=== PATIENT | male | born 1995 | race Caucasian/White ===

== ENCOUNTER → 2020-05-31 18:32 | Outpatient (BNVA) | payer OTHER, SELFPAY | PROVIDERS: Family Provider Nurse Practitioner Family; PCP Nurse Practitioner Family; Visit Provider Emergency Medicine | DX: Z11.59 Encounter for screening for other viral diseases (principal) | CPT/HCPCS: 87635 ==

== ENCOUNTER 2022-02-08 11:05 | Emergency (ER) | payer SELFPAY ==
[2022-02-08 11:47] VITALS: BP 156/84; PULSE 61; RESP 16; TEMP 36.6; O2SAT 100; BMI 26.4
--- NOTE | 2022-02-08 11:56 | CTR_ITS ---
PROCEDURE INFORMATION: Exam: CT Abdomen And Pelvis With Contrast Exam date and time: 02/08/2022 12:28 PM Age: 26 years old Clinical indication: Nausea and vomiting; Abdominal pain; Generalized. TECHNIQUE: Imaging protocol: Computed tomography of the abdomen and pelvis with contrast. Radiation optimization: All CT scans at this facility use at least one of these dose optimization techniques: automated exposure control; mA and/or kV adjustment per patient size (includes targeted exams where dose is matched to clinical indication); or iterative reconstruction. Contrast material: OMNI 350; Contrast volume: 95 ml; Contrast route: INTRAVENOUS (IV); COMPARISON: No relevant prior studies available. RADIATION DOSE METRICS: Total DLP (mGy-cm): 1018.75 FINDINGS: Liver: The liver is not enlarged. There is an ill-defined focus of diminished subcapsular attenuation in segment 4B adjacent to the fissure for the falciform ligament which can be due to focal fatty change or an area of anomalous perfusion. Gallbladder and bile ducts: No calcified gallstones, gallbladder wall thickening, or pericholecystic inflammation. No biliary ductal dilation. Pancreas: No pancreatic mass. No peripancreatic inflammation. No pancreatic ductal dilation. Spleen: The spleen is homogeneous and is not enlarged. Adrenal glands: No adrenal mass. Kidneys and ureters: No hydronephrosis. No nephrolithiasis. Tiny cyst in the right kidney. Stomach and bowel: No bowel obstruction. There appears to be mesenteric vascular engorgement which raises the possibility of an enteritis given the history. However, there is only a small amount of fluid in the small bowel lumen, and cannot confirm bowel wall thickening. No diverticulitis. Appendix: The appendix has normal caliber. There is gas in the lumen. No appendiceal wall thickening or periappendiceal inflammation. Intraperitoneal space: No ascites or pneumoperitoneum. Vasculature: The abdominal aorta and iliofemoral arteries are normal. The mesenteric arteries are patent. The mesenteric, portal, and hepatic veins are patent. Lymph nodes: No pathologically enlarged lymph nodes. Urinary bladder: No urinary bladder calculus or wall thickening. Reproductive: Unremarkable as visualized. Bones/joints: There is an intramedullary ba in the right femur. Disc space narrowing at L5-S1. Soft tissues: No acute soft tissue abnormality. CT/CT abdomen pelvis w con* [id number] IMPRESSION: 1. No bowel obstruction. Enteritis? 2. Normal appendix. COMMENTS: Consistent with the [employer]'s Incidental Findings Committee white paper (J Am Saida Radiol 2018): Any incidental renal lesion less than 1 cm or classified as too small to characterize, or any incidental cystic renal lesion characterized as simple-appearing, is likely benign. No follow-up imaging is recommended for these lesions per consensus recommendations based on imaging criteria.
--- NOTE | 2022-02-08 11:57 | ED_ITS ---
HPI - Abdominal Pain General: Chief Complaint: Abdominal Pain Stated Complaint: ABD Pains, vomitting with blood Time Seen by Provider: 02/08/22 11:51 Source: patient Mode of arrival: ambulatory Limitations: no limitations History of Present Illness: 26-year-old male states that over the last 2 days he has had multiple episodes of vomiting along with diffuse abdominal cramping. He states that he has not been able to relate any p.o. has had multiple multiple episodes of vomiting. He states had 1 episode of slight bloody vomitus denies any diarrhea states his pain is currently a 4 out of 10 denies any fevers denies any worsening improving factors. Associated Symptoms: Reports nausea and vomiting; Denies chills, dysuria and fever(s) Review of Systems Const: Denies: fever(s), chills, body aches or change in appetite Eyes: Denies: blurry vision or eye discomfort ENMT: Denies: throat pain or dental pain Card: Denies: chest pain Resp: Denies: dyspnea GI: Reports: abdominal pain, nausea and vomiting : Denies: dysuria Musc: Denies: neck pain or back pain Skin/Breast: Denies: rash Neuro: Denies: headache(s) Psych: Denies: depression Myles/Lymph: Denies: easy bruising All/Imm: Denies: urticaria PFSH ED PFSH: Family History Denies family history of Diabetes Dementia Hypertension Social History Smoking and tobacco status: current some day smoker Alcohol intake: current Alcohol intake frequency: few times a week Physical Exam Const: COMMON NORMALS: no acute distress, patient oriented x3 and healthy appearing HENMT: COMMON NORMALS: normocephalic and atraumatic HEAD & SCALP: normocephalic and atraumatic Eye: COMMON NORMALS: Equal, round and reactive pupils present and EOMs intact bilaterally PUPIL: Yes Equal, round and reactive pupils present Neck/C-Spine: COMMON NORMALS: full ROM and supple Chest: COMMONS NORMALS: normal inspection of the chest and normal palpation of entire chest wall Resp: COMMON NORMALS: normal respiratory effort, No retractions, No use of accessory muscles and clear to auscultation bilaterally AUSCULTATION: clear to auscultation bilaterally Cardio: COMMON NORMALS: regular rate, regular rhythm and No murmurs present (Cardio) RATE: regular rate RHYTHM: regular rhythm GI: COMMON NORMALS: Normal to inspection, nondistended, normoactive bowel sounds present, Soft to palpation, non-tender and no masses PALPATION: Yes Soft to palpation Extremity: COMMON NORMALS: normal to inspection and full ROM Neuro: COMMON NORMALS: patient oriented x3, moves all extremities and no focal motor deficits Psych: COMMON NORMALS: mental status grossly normal, Normal thought process present and cooperative THOUGHT PROCESS: Normal thought process present Skin: COMMON NORMALS: no rashes or lesions noted and no wounds GENERAL SKIN EXAM: no rashes or lesions noted Course Vital Signs: Vital signs: Vital Signs Temperature 97.9 F 02/08/22 11:47 Pulse Rate 61 02/08/22 11:47 Respiratory Rate 16 02/08/22 11:47 Blood Pressure 156/84 02/08/22 11:47 Pulse Oximetry 100 02/08/22 11:47 MDM - Abdominal Pain Medical Decision Making Patient presents here with abdominal pain and vomiting likely food poisoning or viral in origin he feels much improved here after nausea medicine and fluids he has been able to tolerate p.o. CT scan was normal he is stable for discharge we will prescribe him Zofran he is to follow-up with PCP and return if worsening he understands agrees to plan. Lab Data : 02/08/22 12:00 02/08/22 12:00 Labs/Radiology: Radiology Impressions Abdomen/Pelvis CT 02/08/22 11:56 IMPRESSION: 1. No bowel obstruction. Enteritis? 2. Normal appendix. COMMENTS: Consistent with the [employer]'s Incidental Findings Committee white paper (J Am Saida Radiol 2018): Any incidental renal lesion less than 1 cm or classified as too small to characterize, or any incidental cystic renal lesion characterized as simple-appearing, is likely benign. No follow-up imaging is recommended for these lesions per consensus recommendations based on imaging criteria. Laboratory Results WBC 13.9 10^3/uL (4.0-10.0) H 02/08/22 12:00 RBC 5.38 10^6/uL (4.1-5.3) H 02/08/22 12:00 Hgb 15.8 g/dL (11.7-16.6) 02/08/22 12:00 Hct 44.9 % (42.0-52.0) 02/08/22 12:00 MCV 83.5 fl (80-94) 02/08/22 12:00 MCH 29.4 pg (28.0-34.0) 02/08/22 12:00 MCHC 35.2 g/dL (30.0-36.0) 02/08/22 12:00 RDW 12.2 % (12.1-15.1) 02/08/22 12:00 Plt Count 320 10^3/cmm (130-400) 02/08/22 12:00 MPV 9.4 fL (7.4-10.4) 02/08/22 12:00 Neut % (Auto) 85.0 % 02/08/22 12:00 Lymph % (Auto) 9.4 % 02/08/22 12:00 Story % (Auto) 4.7 % 02/08/22 12:00 Eos % (Auto) 0.2 % 02/08/22 12:00 Baso % (Auto) 0.2 % 02/08/22 12:00 Neut # (Auto) 11.82 10^3/uL (1.8-7.7) H 02/08/22 12:00 Lymph # (Auto) 1.3 10^3/uL (0.8-4.8) 02/08/22 12:00 Story # (Auto) 0.7 10^3/uL (0.2-0.9) 02/08/22 12:00 Eos # (Auto) 0.0 10^3/uL (0.0-0.8) 02/08/22 12:00 Baso # (Auto) 0.0 10^3/uL (0.0-0.1) 02/08/22 12:00 Nucleated RBC % (auto) 0 % 02/08/22 12:00 Nucleated RBCs # 0.0 /100WBC 02/08/22 12:00 Sodium 140 mmol/L (136-145) 02/08/22 12:00 Potassium 3.7 mmol/L (3.5-5.1) 02/08/22 12:00 Chloride 102 mmol/L (98-107) 02/08/22 12:00 Carbon Dioxide 23 mmol/L (22-29) 02/08/22 12:00 Anion Gap 18.7 (5-19) 02/08/22 12:00 BUN 14 mg/dL (6-20) 02/08/22 12:00 Creatinine 0.8 mg/dL (0.7-1.2) 02/08/22 12:00 GFR Calculation 117.8 mL/min (90-130) 02/08/22 12:00 Glucose 153 mg/dL (65-115) H 02/08/22 12:00 Calculated Osmolality 294 mOsm/kg (285-295) 02/08/22 12:00 Calcium 10.1 mg/dL (8.5-10.5) 02/08/22 12:00 Total Bilirubin 1.1 mg/dL (0.15-1.2) 02/08/22 12:00 AST 21 U/L (0-40) 02/08/22 12:00 ALT 19 U/L (0-41) 02/08/22 12:00 Alkaline Phosphatase 59 IU/L (40-130) 02/08/22 12:00 Total Protein 7.9 g/dL (6.6-8.7) 02/08/22 12:00 Albumin 5.2 g/dL (3.5-5.2) 02/08/22 12:00 Globulin 2.7 g/dL (1.3-4.6) 02/08/22 12:00 Lipase 23 U/L (13-60) 02/08/22 12:00 Discharge Plan Discharge Patient Disposition: Home Clinical Impression: Vomiting Qualifiers: Vomiting type: unspecified Nausea presence: with nausea Qualified Code(s): R11.2 - Nausea with vomiting, unspecified Condition: Stable Prescriptions: New ondansetron 4 mg tablet,disintegrating 4 mg PO Q6H PRN (Reason: nausea and vomiting) Qty: 14 0RF Discharge Orders: Discharge ED (Routine); Ordered 02/08/22 Ordered By: Jaime Andrade Referrals: Mason Cobos FNP [Primary Care Provider] - Discharge Diet: Advance as tolerated Discharge Activity: Resume usual activity Patient Instructions: Acute Nausea and Vomiting (ED) Coding Level of Care Code ED Vp Hr D[facility] for [facility] Fwd Exam Comprehensive
[2022-02-08 12:05] LABS: Basophils % 0.2 %; Eosinophils % 0.2 %; Hematocrit 44.9 % (42.0-52.0); Hemoglobin 15.8 g/dL (11.7-16.6); Lymphocytes # 1.3 10^3/uL (0.8-4.8); Lymphocytes % 9.4 %; Mean Corpuscular HGB Conc 35.2 g/dL (30.0-36.0); Mean Corpuscular Hemoglobin 29.4 pg (28.0-34.0); Mean Corpuscular Volume 83.5 fl (80-94); Mean Platelet Volume 9.4 fL (7.4-10.4); Monocytes # 0.7 10^3/uL (0.2-0.9); Monocytes % 4.7 %; Neutrophils # 11.82 10^3/uL (1.8-7.7); Nucleated Red Blood Cells % 0 %; Platelet Count 320 10^3/cmm (130-400); Red Blood Count 5.38 10^6/uL (4.1-5.3); Red Cell Distribution Width 12.2 % (12.1-15.1); White Blood Count 13.9 10^3/uL (4.0-10.0)
[2022-02-08] MEDS: metoclopramide 5 mg/mL SDV 2 mL 10 MG IVP (12:05)
[2022-02-08] MEDS: diphenhydrAMINE 50 mg/mL SDV 1mL IVP (12:05)
[2022-02-08] MEDS: sodium chloride 0.9% 1,000 ML 999 ML IV (12:06)
[2022-02-08] MEDS: iohexol 350 mg/mL 100 mL Btl IV (12:28)
[2022-02-08 12:29] LABS: Alanine Aminotransferase 19 U/L (0-41); Albumin Level 5.2 g/dL (3.5-5.2); Alkaline Phosphatase 59 IU/L (40-130); Anion Gap 18.7 (5-19); Aspartate Amino Transferase 21 U/L (0-40); Blood Urea Nitrogen 14 mg/dL (6-20); Calcium 10.1 mg/dL (8.5-10.5); Carbon Dioxide 23 mmol/L (22-29); Chloride 102 mmol/L (98-107); Globulin 2.7 g/dL (1.3-4.6); Glomerular Filtration Rate 117.8 mL/min (90-130); Glucose 153 mg/dL (65-115); Lipase 23 U/L (13-60); Osmolality Calculated 294 mOsm/kg (285-295); Potassium 3.7 mmol/L (3.5-5.1); Sodium 140 mmol/L (136-145); Total Bilirubin 1.1 mg/dL (0.15-1.2); Total Protein 7.9 g/dL (6.6-8.7)
== END 2022-02-08 14:13 | disposition home or self-care (01) ==
PROVIDERS: Physician Assistant; Emergency Provider Emergency Medicine; PCP Nurse Practitioner Family
DX: R11.2 Nausea with vomiting, unspecified (principal)
CPT/HCPCS: 74177; 80053; 83690; 85025; 96361; 96374; 96375; 99284; J1200; J2765; J7030; Q9967

== ENCOUNTER 2022-02-10 07:20 | Emergency (ER) | payer SELFPAY ==
[2022-02-10 07:44] VITALS: BP 140/95; PULSE 76; RESP 18; TEMP 36.7; O2SAT 100; BMI 26.4
--- NOTE | 2022-02-10 10:30 | W.ED.NAVMDI ---
Documented by User: ERI Plata 02/11/22 07:38 HPI - Nausea/Vomiting/Diarrhea General: Chief complaint: Abdominal Pain Stated complaint: n/v continues Time Seen by Provider: 02/10/22 07:26 History of Present Illness: Patient is a 26-year-old male comes to the ED with nausea and vomiting. Patient was seen here in the ED for same complaint 2 days ago on February 08. He states that the nausea med he was sent home with is not working then he still having some nausea and multiple episodes of emesis. Endorses abdominal muscle pain after he has some vomiting and retching. Denies any fevers, bladder or bowel symptoms. Endorses some improvement with symptoms when he takes a hot shower. Patient admits to being a chronic marijuana smoker for over 10 years. Associated nausea: Yes Associated symtoms: Reports nausea; Denies change in vision, chest pain, dysuria, fatigue, headache(s) or palpitations Review of Systems Const: Denies: fever(s), chills or fatigue Eyes: Denies: change in vision or eye discomfort ENMT: Denies: throat pain, odynophagia, nasal discharge or nasal congestion Card: Denies: chest pain, palpitations, edema, swelling of feet/ankles, dyspnea on exertion or orthopnea Resp: Denies: dyspnea, productive cough or non-productive cough GI: Reports: nausea and vomiting; Denies: abdominal pain, diarrhea, constipation or hematochezia : Denies: flank pain, difficulty urinating, dysuria or hematuria Musc: Denies: neck pain, back pain or extremity swelling Skin/Breast: Denies: rash or new lesions Neuro: Denies: headache(s), numbness in extremities or weakness in extremities PFSH ED PFSH: Medical History No pertinent family history Surgical History No pertinent past surgical history Family History Denies family history of Diabetes Dementia Hypertension Social History Smoking and tobacco status: current some day smoker Alcohol intake: current Alcohol intake frequency: few times a week Physical Exam Const: COMMON NORMALS: no acute distress, patient oriented x3, healthy appearing and alert GENERAL APPEARANCE: cooperative HENMT: COMMON NORMALS: normocephalic HEAD & SCALP: normocephalic MOUTH: Normal oral and palatal mucosa present THROAT: posterior oropharynx normal and uvula midline Eye: COMMON NORMALS: Equal, round and reactive pupils present and conjunctivae normal CONJUNCTIVA: Yes conjunctivae normal PUPIL: Yes Equal, round and reactive pupils present Neck/C-Spine: COMMON NORMALS: supple GENERAL: Yes normal visual inspection Resp: COMMON NORMALS: normal respiratory effort, No retractions, No use of accessory muscles and clear to auscultation bilaterally AUSCULTATION: clear to auscultation bilaterally Cardio: COMMON NORMALS: regular rate, regular rhythm, S1 normal heart sound present, S2 normal heart sound present, No gallops present (Cardio), No clicks present (Cardio), No murmurs present (Cardio) and Peripheral pulses 2+ throughout RATE: regular rate RHYTHM: regular rhythm HEART SOUNDS: S1 normal heart sound present and S2 normal heart sound present PERIPHERAL PULSES: Peripheral pulses 2+ throughout GI: COMMON NORMALS: Normal to inspection, nondistended, normoactive bowel sounds present, Soft to palpation and no masses PALPATION: Yes Soft to palpation and Yes Tenderness to palpation present (GI) (Epigastric tenderness.) : COMMON NORMALS: Yes no CVA tenderness BLADDER/KIDNEY EXAM: Yes no CVA tenderness Back/Pelvis: COMMON NORMALS: no CVA tenderness Extremity: COMMON NORMALS: normal to inspection Neuro: COMMON NORMALS: patient oriented x3 SENSORIUM/ORIENTATION: Yes alert GAIT: Yes Normal gait present Skin: GENERAL SKIN EXAM: dry skin Course ED course: Patient was given p.o. fluid challengeafter he received a liter of IV fluids and IV Reglan. Patient was able to pass p.o. fluid challenge and he had no episodes of emesis after p.o. fluids. Vital Signs: Vital signs: Vital Signs Temperature 97.8 F 02/10/22 13:32 Pulse Rate 66 02/10/22 13:32 Respiratory Rate 16 02/10/22 13:32 Blood Pressure 153/100 02/10/22 13:32 Pulse Oximetry 100 02/10/22 13:32 MDM - Nausea/Vomiting/Diarrhea Medical Decision Making Patient is a 26-year-old male comes to the ED with nausea and vomiting. He was seen here in the ED for same complaint 3 days ago but was discharged home on some Zofran. He is still having some nausea and vomiting and Zofran at home is not helping. Warm showers improve his nausea and vomiting and hedoes admit to being a chronic marijuana user. Denies any fevers or abdominal pain. Vitals are stable. Patient appears nontoxic and in no acute distress. He has some epigastric tenderness to palpation. Rest of exam is benign. White blood cell count 16.3 which is up from 13.9 on February 08. Lipase also went to 134 and that is up from 23 on February 08. Rest of the labs are unremarkable. Given the increased white blood cell count, lipase and epigastric tenderness I repeated a CT of the abdomen and it showed no acute findings. Patient was given 1 L of IV fluids, Reglan and Ativan to help with his nausea/vomiting. Patient was given p.o. fluid challenge and he was able to tolerate p.o. fluids and keep them down with no other episodes of emesis here in the ED. He was stable for discharge home. He was sent home with a prescription for some Reglan as well to try to help with his nausea. Follow-up with PCP in the next week for reevaluation. Return to ED precautions given. Patient understood and agreed with plan. Lab Data I reviewed the patient's lab results. : 02/10/22 10:44 02/10/22 10:44 Radiology Impressions Abdomen/Pelvis CT 02/10/22 11:50 IMPRESSION: 1. No evidence of acute appendicitis. Appendix is normal and air-filled. 2. No hydronephrosis in either kidney. 3. Again seen is mild central mesenteric vascular engorgement which can be seen with mesenteritis or enteritis. Noncontrast small bowel appears normal today. 4. Sigmoid diverticulosis. No evidence of acute diverticulitis. 5. No free fluid in the abdomen or pelvis. 6. No other significant changes compared to previous. Laboratory Results WBC 16.3 10^3/uL (4.0-10.0) H 02/10/22 10:44 RBC 5.38 10^6/uL (4.1-5.3) H 02/10/22 10:44 Hgb 16.0 g/dL (11.7-16.6) 02/10/22 10:44 Hct 43.8 % (42.0-52.0) 02/10/22 10:44 MCV 81.4 fl (80-94) 02/10/22 10:44 MCH 29.7 pg (28.0-34.0) 02/10/22 10:44 MCHC 36.5 g/dL (30.0-36.0) H 02/10/22 10:44 RDW 12.0 % (12.1-15.1) L 02/10/22 10:44 Plt Count 321 10^3/cmm (130-400) 02/10/22 10:44 MPV 9.8 fL (7.4-10.4) 02/10/22 10:44 Neut % (Auto) 77.2 % 02/10/22 10:44 Lymph % (Auto) 11.3 % 02/10/22 10:44 Spalding % (Auto) 10.9 % 02/10/22 10:44 Eos % (Auto) 0.0 % 02/10/22 10:44 Baso % (Auto) 0.2 % 02/10/22 10:44 Neut # (Auto) 12.59 10^3/uL (1.8-7.7) H 02/10/22 10:44 Lymph # (Auto) 1.8 10^3/uL (0.8-4.8) 02/10/22 10:44 Spalding # (Auto) 1.8 10^3/uL (0.2-0.9) H 02/10/22 10:44 Eos # (Auto) 0.0 10^3/uL (0.0-0.8) 02/10/22 10:44 Baso # (Auto) 0.0 10^3/uL (0.0-0.1) 02/10/22 10:44 Nucleated RBC % (auto) 0 % 02/10/22 10:44 Nucleated RBCs # 0.0 /100WBC 02/10/22 10:44 Sodium 137 mmol/L (136-145) 02/10/22 10:44 Potassium 3.7 mmol/L (3.5-5.1) 02/10/22 10:44 Chloride 96 mmol/L (98-107) L 02/10/22 10:44 Carbon Dioxide 25 mmol/L (22-29) 02/10/22 10:44 Anion Gap 19.7 (5-19) H 02/10/22 10:44 BUN 11 mg/dL (6-20) 02/10/22 10:44 Creatinine 0.8 mg/dL (0.7-1.2) 02/10/22 10:44 GFR Calculation 117.8 mL/min (90-130) 02/10/22 10:44 Glucose 112 mg/dL (65-115) 02/10/22 10:44 Calculated Osmolality 284 mOsm/kg (285-295) L 02/10/22 10:44 Calcium 10.0 mg/dL (8.5-10.5) 02/10/22 10:44 Total Bilirubin 1.3 mg/dL (0.15-1.2) H 02/10/22 10:44 AST 26 U/L (0-40) 02/10/22 10:44 ALT 28 U/L (0-41) 02/10/22 10:44 Alkaline Phosphatase 59 IU/L (40-130) 02/10/22 10:44 Creatine Kinase 224 U/L (39-308) 02/10/22 10:44 Total Protein 8.0 g/dL (6.6-8.7) 02/10/22 10:44 Albumin 5.2 g/dL (3.5-5.2) 02/10/22 10:44 Globulin 2.8 g/dL (1.3-4.6) 02/10/22 10:44 Lipase 134 U/L (13-60) H 02/10/22 10:44 Discharge Plan Discharge Patient Disposition: Home Clinical Impression: Nausea & vomiting Qualifiers: Vomiting type: unspecified Qualified Code(s): R11.2 - Nausea with vomiting, unspecified Condition: Stable Prescriptions: New Reglan 10 mg tablet 10 mg PO Q6H PRN (Reason: nausea and vomiting) Qty: 20 0RF No Action ondansetron 4 mg tablet,disintegrating 4 mg PO Q6H PRN (Reason: nausea and vomiting) Qty: 14 0RF Discharge Orders: Discharge ED (Routine); Ordered 02/10/22 Ordered By: Isidro Forbes Referrals: Mason Cobos FNP [Primary Care Provider] - Discharge Diet: Advance as tolerated and Clear Liquid Discharge Activity: Increase activity as tolerated Patient Instructions: Clear Liquid Diet (ED) Activity Restrictions/Additional Instructions: Follow-up with medical provider as directed in the next 5 to 7 days reevaluation. Clear liquid diet for the next 24 hours and slowly advance diet as tolerated. Take medications as prescribed. Return to the ER or your medical provider if condition worsens. Please read and understand discharge instructions. Thank you for choosing [facility] for your healthcare needs today. Please realize this is an emergency room and that we are providing you with a medical screening exam and this may not be complete and all inclusive of all the testing and or work up that you may need to determine your ailment or severity of your illness. It is very important that you follow up as instructed or that you return to the Emergency Department should you have concerns or if your condition changes or worsens in any way. Coding Level of Care Code ED Territory Outside Sales Manager for Chg Fwd Exam Comprehensive Documented by User: Georges Galloway DO 02/11/22 08:22 HPI - Nausea/Vomiting/Diarrhea General: Chief complaint: Abdominal Pain Stated complaint: n/v continues Time Seen by Provider: 02/10/22 07:26 [facility] ED PFSH: Medical History No pertinent family history Surgical History No pertinent past surgical history Family History Denies family history of Diabetes Dementia Hypertension Social History Smoking and tobacco status: current some day smoker Alcohol intake: current Alcohol intake frequency: few times a week Course Vital Signs: Vital signs: Vital Signs Temperature 97.8 F 02/10/22 13:32 Pulse Rate 66 02/10/22 13:32 Respiratory Rate 16 02/10/22 13:32 Blood Pressure 153/100 02/10/22 13:32 Pulse Oximetry 100 02/10/22 13:32 MDM - Nausea/Vomiting/Diarrhea Medical Decision Making Patient is a 26-year-old male comes to the ED with nausea and vomiting. He was seen here in the ED for same complaint 3 days ago but was discharged home on some Zofran. He is still having some nausea and vomiting and Zofran at home is not helping. Warm showers improve his nausea and vomiting and hedoes admit to being a chronic marijuana user. Denies any fevers or abdominal pain. Vitals are stable. Patient appears nontoxic and in no acute distress. He has some epigastric tenderness to palpation. Rest of exam is benign. White blood cell count 16.3 which is up from 13.9 on February 08. Lipase also went to 134 and that is up from 23 on February 08. Rest of the labs are unremarkable. Given the increased white blood cell count, lipase and epigastric tenderness I repeated a CT of the abdomen and it showed no acute findings. Patient was given 1 L of IV fluids, Reglan and Ativan to help with his nausea/vomiting. Patient was given p.o. fluid challenge and he was able to tolerate p.o. fluids and keep them down with no other episodes of emesis here in the ED. He was stable for discharge home. He was sent home with a prescription for some Reglan as well to try to help with his nausea. Follow-up with PCP in the next week for reevaluation. Return to ED precautions given. Patient understood and agreed with plan. Chart reviewed and patient discussed with midlevel. Agree with assessment and plan. Lab Data : 02/10/22 10:44 02/10/22 10:44 Radiology Impressions Abdomen/Pelvis CT 02/10/22 11:50 IMPRESSION: 1. No evidence of acute appendicitis. Appendix is normal and air-filled. 2. No hydronephrosis in either kidney. 3. Again seen is mild central mesenteric vascular engorgement which can be seen with mesenteritis or enteritis. Noncontrast small bowel appears normal today. 4. Sigmoid diverticulosis. No evidence of acute diverticulitis. 5. No free fluid in the abdomen or pelvis. 6. No other significant changes compared to previous. Laboratory Results WBC 16.3 10^3/uL (4.0-10.0) H 02/10/22 10:44 RBC 5.38 10^6/uL (4.1-5.3) H 02/10/22 10:44 Hgb 16.0 g/dL (11.7-16.6) 02/10/22 10:44 Hct 43.8 % (42.0-52.0) 02/10/22 10:44 MCV 81.4 fl (80-94) 02/10/22 10:44 MCH 29.7 pg (28.0-34.0) 02/10/22 10:44 MCHC 36.5 g/dL (30.0-36.0) H 02/10/22 10:44 RDW 12.0 % (12.1-15.1) L 02/10/22 10:44 Plt Count 321 10^3/cmm (130-400) 02/10/22 10:44 MPV 9.8 fL (7.4-10.4) 02/10/22 10:44 Neut % (Auto) 77.2 % 02/10/22 10:44 Lymph % (Auto) 11.3 % 02/10/22 10:44 Spalding % (Auto) 10.9 % 02/10/22 10:44 Eos % (Auto) 0.0 % 02/10/22 10:44 Baso % (Auto) 0.2 % 02/10/22 10:44 Neut # (Auto) 12.59 10^3/uL (1.8-7.7) H 02/10/22 10:44 Lymph # (Auto) 1.8 10^3/uL (0.8-4.8) 02/10/22 10:44 Spalding # (Auto) 1.8 10^3/uL (0.2-0.9) H 02/10/22 10:44 Eos # (Auto) 0.0 10^3/uL (0.0-0.8) 02/10/22 10:44 Baso # (Auto) 0.0 10^3/uL (0.0-0.1) 02/10/22 10:44 Nucleated RBC % (auto) 0 % 02/10/22 10:44 Nucleated RBCs # 0.0 /100WBC 02/10/22 10:44 Sodium 137 mmol/L (136-145) 02/10/22 10:44 Potassium 3.7 mmol/L (3.5-5.1) 02/10/22 10:44 Chloride 96 mmol/L (98-107) L 02/10/22 10:44 Carbon Dioxide 25 mmol/L (22-29) 02/10/22 10:44 Anion Gap 19.7 (5-19) H 02/10/22 10:44 BUN 11 mg/dL (6-20) 02/10/22 10:44 Creatinine 0.8 mg/dL (0.7-1.2) 02/10/22 10:44 GFR Calculation 117.8 mL/min (90-130) 02/10/22 10:44 Glucose 112 mg/dL (65-115) 02/10/22 10:44 Calculated Osmolality 284 mOsm/kg (285-295) L 02/10/22 10:44 Calcium 10.0 mg/dL (8.5-10.5) 02/10/22 10:44 Total Bilirubin 1.3 mg/dL (0.15-1.2) H 02/10/22 10:44 AST 26 U/L (0-40) 02/10/22 10:44 ALT 28 U/L (0-41) 02/10/22 10:44 Alkaline Phosphatase 59 IU/L (40-130) 02/10/22 10:44 Creatine Kinase 224 U/L (39-308) 02/10/22 10:44 Total Protein 8.0 g/dL (6.6-8.7) 02/10/22 10:44 Albumin 5.2 g/dL (3.5-5.2) 02/10/22 10:44 Globulin 2.8 g/dL (1.3-4.6) 02/10/22 10:44 Lipase 134 U/L (13-60) H 02/10/22 10:44 Discharge Plan Discharge Patient Disposition: Home Clinical Impression: Nausea & vomiting Qualifiers: Vomiting type: unspecified Qualified Code(s): R11.2 - Nausea with vomiting, unspecified Condition: Stable Prescriptions: New Reglan 10 mg tablet 10 mg PO Q6H PRN (Reason: nausea and vomiting) Qty: 20 0RF No Action ondansetron 4 mg tablet,disintegrating 4 mg PO Q6H PRN (Reason: nausea and vomiting) Qty: 14 0RF Discharge Orders: Discharge ED (Routine); Ordered 02/10/22 Ordered By: Isidro Forbes Referrals: Mason Cobos FNP [Primary Care Provider] - Discharge Diet: Advance as tolerated and Clear Liquid Discharge Activity: Increase activity as tolerated Patient Instructions: Clear Liquid Diet (ED) Activity Restrictions/Additional Instructions: Follow-up with medical provider as directed in the next 5 to 7 days reevaluation. Clear liquid diet for the next 24 hours and slowly advance diet as tolerated. Take medications as prescribed. Return to the ER or your medical provider if condition worsens. Please read and understand discharge instructions. Thank you for choosing [facility] for your healthcare needs today. Please realize this is an emergency room and that we are providing you with a medical screening exam and this may not be complete and all inclusive of all the testing and or work up that you may need to determine your ailment or severity of your illness. It is very important that you follow up as instructed or that you return to the Emergency Department should you have concerns or if your condition changes or worsens in any way. Coding Level of Care Code ED Territory Outside Sales Manager for Jose Patel Exam Comprehensive
[2022-02-10] MEDS: sodium chloride 0.9% 1,000 ML 999 ML IV ×2 (10:39→11:37)
[2022-02-10] MEDS: metoclopramide 5 mg/mL SDV 2 mL 10 MG IVP (10:39)
[2022-02-10 10:49] LABS: Basophils % 0.2 %; Hematocrit 43.8 % (42.0-52.0); Lymphocytes # 1.8 10^3/uL (0.8-4.8); Lymphocytes % 11.3 %; Mean Corpuscular HGB Conc 36.5 g/dL (30.0-36.0); Mean Corpuscular Hemoglobin 29.7 pg (28.0-34.0); Mean Corpuscular Volume 81.4 fl (80-94); Mean Platelet Volume 9.8 fL (7.4-10.4); Monocytes # 1.8 10^3/uL (0.2-0.9); Monocytes % 10.9 %; Neutrophils # 12.59 10^3/uL (1.8-7.7); Neutrophils % 77.2 %; Nucleated Red Blood Cells % 0 %; Platelet Count 321 10^3/cmm (130-400); Red Blood Count 5.38 10^6/uL (4.1-5.3); White Blood Count 16.3 10^3/uL (4.0-10.0)
[2022-02-10 11:07] LABS: Alanine Aminotransferase 28 U/L (0-41); Albumin Level 5.2 g/dL (3.5-5.2); Alkaline Phosphatase 59 IU/L (40-130); Anion Gap 19.7 (5-19); Aspartate Amino Transferase 26 U/L (0-40); Blood Urea Nitrogen 11 mg/dL (6-20); Carbon Dioxide 25 mmol/L (22-29); Chloride 96 mmol/L (98-107); Creatine Phosphokinase 224 U/L (39-308); Globulin 2.8 g/dL (1.3-4.6); Glomerular Filtration Rate 117.8 mL/min (90-130); Glucose 112 mg/dL (65-115); Lipase 134 U/L (13-60); Osmolality Calculated 284 mOsm/kg (285-295); Potassium 3.7 mmol/L (3.5-5.1); Sodium 137 mmol/L (136-145); Total Bilirubin 1.3 mg/dL (0.15-1.2)
[2022-02-10] MEDS: LORazepam 2 mg/mL INJ 1 mL 1 MG IVP (11:37)
--- NOTE | 2022-02-10 11:50 | CT_ITS ---
WS: [id number] CT ABDOMEN PELVIS TECHNIQUE: Noncontrast CT of the abdomen and pelvis with coronal and sagittal reformatted images. CLINICAL INFORMATION: n/v, epigastric tenderness COMPARISON: CT February 08, 2022 DLP: 1172.[address] scans at [facility] use at least one of these dose optimization techniques: automated e xposure control; mA and/or kV adjustment per patient size (includes targeted exams where dose is matc hed to clinical indication); or iterative reconstruction. FINDINGS: Air filled appendix in the RIGHT lower quadrant appears normal. No evidence of acute appendicitis. Hilary ng bases are well aerated. Noncontrast liver is normal. Again seen is mild mesenteric vascular engorg ement which can be seen with mesenteritis or enteritis. Small bowel appears unremarkable. Vicarious excretion of contrast in the gallbladder. Normal GE junction. Noncontrast spleen appears no rmal. Tiny fat-containing umbilical hernia. Noncontrast pancreas appears normal. Normal caliber abdom inal. Diverticulosis. No free fluid in the pelvis. Medullary ba fixation RIGHT femur. CT/CT abdomen pelvis wo con [id number] IMPRESSION: 1. No evidence of acute appendicitis. Appendix is normal and air-filled. 2. No hydronephrosis in either kidney. 3. Again seen is mild central mesenteric vascular engorgement which can be see n with mesenteritis or enteritis. Noncontrast small bowel appears normal today. 4. Sigmoid diverticulosis. No evidence of acute diverticulitis. 5. No free fluid in the abdomen or pelvis. 6. No other significant changes compared to previous.
[2022-02-10 13:32] VITALS: BP 153/100; PULSE 66; RESP 16; TEMP 36.6; O2SAT 100
== END 2022-02-10 13:34 | disposition home or self-care (01) ==
PROVIDERS: Family Medicine; Emergency Provider Physician Assistant; PCP Nurse Practitioner Family
DX: R11.2 Nausea with vomiting, unspecified (principal); F17.210 Nicotine dependence, cigarettes, uncomplicated
CPT/HCPCS: 74176; 80053; 82550; 83690; 85025; 96361; 96374; 96375; 99284; J2060; J2765; J7030

== ENCOUNTER 2022-08-02 19:11 | Emergency (ER) | payer SELFPAY ==
[2022-08-02 19:13] VITALS: BP 151/95; PULSE 83; RESP 24; TEMP 37.4; O2SAT 98; BMI 25.1
--- NOTE | 2022-08-02 19:38 | XRR_ITS ---
PROCEDURE INFORMATION: Exam: XR Abdomen Exam date and time: 08/02/2022 7:43 PM Age: 27 years old Clinical indication: Abdominal tenderness and nausea and vomiting; Abdominal pain; TECHNIQUE: Imaging protocol: Radiologic exam of the abdomen. Views: Frontal supine view of the abdomen. 1 View. COMPARISON: CT abdomen pelvis con [id number] 02/10/2022 12:18 PM FINDINGS: Gastrointestinal tract: Normal. No bowel dilation. Bones/joints: Partially visualized intramedullary ba in the proximal right femur. Other findings: Moderate stool burden. XR/XR abdomen 1V* [id number] IMPRESSION: No acute findings.Non acute findings as described above.
--- NOTE | 2022-08-02 19:39 | ED_ITS ---
HPI - Abdominal Pain General: Chief Complaint: Nausea/Vomiting/Diarrhea Stated Complaint: nausea vommiting Time Seen by Provider: 08/02/22 19:33 Source: patient Mode of arrival: ambulatory Limitations: no limitations History of Present Illness: See nursing assessment. Patient with nausea vomiting frequently since yesterday morning. Patient states he had blood streaks in his vomit today. He states he is unable to hold down fluids or crackers. He denies any known exposure to other people with same symptoms. He denies any known food poisoning. Denies any fever. States he does have epigastric abdominal pain since he has been vomiting quite a bit. Denies any diarrhea. Possible history is unremarkable. Denies take any routine medications. He is allergic to shellfish. Past surgical history includes no abdominal surgery. He did have surgery on his right femur. He does smoke cigarettes. He denies alcohol use. Associated Symptoms: Reports coffee ground emesis, nausea and vomiting; Denies chills and fever(s) Review of Systems Const: Denies: fever(s) or chills Eyes: Denies: change in vision ENMT: Denies: throat pain Card: Denies: chest pain or palpitations Resp: Denies: dyspnea or wheezing GI: Reports: abdominal pain (Epigastric abdominal pain), nausea, vomiting and coffee ground emesis : Denies: flank pain Musc: Denies: neck pain or back pain Skin/Breast: Denies: rash or pruritus Neuro: Denies: headache(s) or numbness in extremities Psych: Denies: anxiety Myles/Lymph: Denies: enlarged lymph nodes [facility] ED PFSH: Medical History No pertinent family history Surgical History No pertinent past surgical history Family History Denies family history of Diabetes Dementia Hypertension Social History Smoking and tobacco status: current some day smoker Alcohol intake: current Alcohol intake frequency: few times a week Supplemental [facility] Information: Past surgical history includes right femur surgery. Denies any abdominal surgery. Physical Exam Const: COMMON NORMALS: no acute distress, patient oriented x3, no limitations and well nourished GENERAL APPEARANCE: cooperative OTHER: Mild anxiety HENMT: COMMON NORMALS: normocephalic and atraumatic HEAD & SCALP: normocephalic and atraumatic FACE & SINUS: normal facial exam Eye: COMMON NORMALS: EOMs intact bilaterally Neck/C-Spine: COMMON NORMALS: full ROM, no lymphadenopathy, supple and no meningeal signs GENERAL: Yes normal visual inspection Lymph: LYMPHATIC: no lymphadenopathy noted Chest: COMMONS NORMALS: normal inspection of the chest and normal palpation of entire chest wall CHEST: No Ecchymosis present and No rash Resp: COMMON NORMALS: normal respiratory effort, No retractions and clear to auscultation bilaterally EFFORT & INSPECTION: No respiratory distress AUSCULTATION: clear to auscultation bilaterally Cardio: COMMON NORMALS: regular rate, regular rhythm and Peripheral pulses 2+ throughout JUGULAR VENOUS DISTENTION: no JVD RATE: regular rate RHYTHM: regular rhythm PERIPHERAL PULSES: Peripheral pulses 2+ throughout GI: OTHER: Abdomen is flat and soft. Normoactive bowel sounds throughout. Mild epigastric abdominal pain. No guarding or rebound. No hepatosplenomegaly. No masses palpated. : COMMON NORMALS: Yes no CVA tenderness BLADDER/KIDNEY EXAM: Yes no CVA tenderness Back/Pelvis: COMMON NORMALS: no CVA tenderness Extremity: COMMON NORMALS: normal to inspection, full ROM and capillary refill normal Neuro: COMMON NORMALS: patient oriented x3, CN's II-XII intact bilaterally, no focal motor deficits and no sensory deficits noted MENINGEAL SIGNS: Yes no meningeal signs Psych: COMMON NORMALS: mental status grossly normal and Normal thought process present THOUGHT PROCESS: Normal thought process present Skin: COMMON NORMALS: no rashes or lesions noted and no wounds GENERAL SKIN EXAM: no rashes or lesions noted Course Vital Signs: Vital signs: Vital Signs Temperature 99.3 F 08/02/22 19:13 Pulse Rate 64 08/02/22 22:00 Respiratory Rate 14 08/02/22 22:00 Blood Pressure 122/65 08/02/22 22:00 Pulse Oximetry 95 08/02/22 22:00 Oxygen Delivery Me thod 08/02/22 19:13 MDM - Abdominal Pain Medical Decision Making Viral gastroenteritis versus acute gastritis versus bowel obstruction. Will obtain CT of the abdomen pelvis to rule out appendicitis. Will give Benadryl and Solu-Medrol prior to CT due to previous allergy to shellfish. He states his allergy to shellfish is that he becomes slightly puffy. States he can tolerate fried seafood without any problem. He states he believes he has had a CT scan in the past with IV contrast without any difficulty. However, we will prep patient with Benadryl and Solu-Medrol prior to CT as a precaution. Patient still has nausea. 2205: Patient is feeling much better. We will give patient another liter of IV fluid. We will also give additional Zofran prior to discharge. Lab Data 08/02/22 19:30 08/02/22 19:30 Labs/Radiology: Radiology Impressions Abdomen X-Ray 08/02/22 19:38 IMPRESSION: No acute findings.Non acute findings as described above. Abdomen/Pelvis CT 08/02/22 20:26 IMPRESSION: There is mucosal thickening of the distal esophagus and gastroesophageal junction consistent with nonspecific esophagitis/gastritis. Follow-up to exclude neoplasm if clinically warranted. COMMENTS: Consistent with the [place] [employer]'s Incidental Findings Committee white paper (J Am Saida Radiol 2018): Any incidental renal lesion less than 1 cm or classified as too small to characterize, or any incidental cystic renal lesion characterized as simple-appearing, is likely benign. No follow-up imaging is recommended for these lesions per consensus recommendations based on imaging criteria. Laboratory Results WBC 16.5 10^3/uL (4.0-10.0) H 08/02/22 19:30 RBC 5.49 10^6/uL (4.1-5.3) H 08/02/22 19:30 Hgb 16.3 g/dL (11.7-16.6) 08/02/22 19:30 Hct 45.9 % (42.0-52.0) 08/02/22 19:30 MCV 83.6 fl (80-94) 08/02/22 19:30 MCH 29.7 pg (28.0-34.0) 08/02/22 19:30 MCHC 35.5 g/dL (30.0-36.0) 08/02/22 19:30 RDW 12.4 % (12.1-15.1) 08/02/22 19:30 Plt Count 349 10^3/cmm (130-400) 08/02/22 19:30 MPV 9.3 fL (7.4-10.4) 08/02/22 19:30 Neut % (Auto) 72.2 % 08/02/22 19:30 Lymph % (Auto) 14.0 % 08/02/22 19:30 [place] % (Auto) 13.0 % 08/02/22 19:30 Eos % (Auto) 0.5 % 08/02/22 19: Baso % (Auto) 0.1 % 08/02/22 19:30 Neut # (Auto) 11.87 10^3/uL (1.8-7.7) H 08/02/22 19: Lymph # (Auto) 2.3 10^3/uL (0.8-4.8) 08/02/22 19:30 [place] # (Auto) 2.2 10^3/uL (0.2-0.9) H 08/02/22 19:30 Eos # (Auto) 0.1 10^3/uL (0.0-0.8) 08/02/22 19: Baso # (Auto) 0.0 10^3/uL (0.0-0.1) 08/02/22 19: Nucleated RBC % (auto) 0 % 08/02/22: Nucleated RBCs # 0.0 /100WBC 08/02/22 19:30 Sodium 128 mmol/L (136-145) L 08/02/22 19:30 Potassium 3.2 mmol/L (3.5-5.1) L 08/02/22: Chloride 91 mmol/L (98-107) L 08/02/22 19:30 Carbon Dioxide 23 mmol/L (22-29) 08/02/22 19:30 Anion Gap 17.2 (5-19) 08/02/22 19:30 BUN 14 mg/dL (6-20) 08/02/22 19: Creatinine 0.6 mg/dL (0.7-1.2) L 08/02/22 19:30 GFR Calculation 162.9 mL/min (90-130) H 08/02/22 19: Glucose 124 mg/dL (65-115) H 08/02/22 19: Calculated Osmolality 268 mOsm/kg (285-295) L 08/02/22 19:30 Calcium 10.4 mg/dL (8.5-10.5) 08/02/22 19:30 Total Bilirubin 0.8 mg/dL (0.15-1.2) 08/02/22 19:30 AST 30 U/L (0-40) 08/02/22 19:30 ALT 19 U/L (0-41) 08/02/22 19:30 Alkaline Phosphatase 58 U/L (40-130) 08/02/22 19:30 Total Protein 8.0 g/dL (6.6-8.7) 08/02/22 19:30 Albumin 4.8 g/dL (3.5-5.2) 08/02/22 19:30 Globulin 3.2 g/dL (1.3-4.6) 08/02/22 19:30 Lipase 76 U/L (13-60) H 08/02/22 19:30 Urine Color Yellow (Yellow) 08/02/22 20:33 Urine Appearance Clear (CLEAR) 08/02/22 20:33 Urine pH 7 (5-7) 08/02/22 20:33 Ur Specific Moon 1.015 (1.005-1.030) 08/02/22 20:33 Urine Protein Neg (Negative) 08/02/22 20:33 Urine Glucose (UA) Norm (Normal) 08/02/22 20:33 Urine Ketones 2+ (Negative) H 08/02/22 20:33 Urine Blood Neg (Negative) 08/02/22 20:33 Urine Nitrate Negative (Negative) 08/02/22 20:33 Urine Bilirubin Neg (Negative) 08/02/22 20:33 Urine Urobilinogen Neg mg/dL (Negative) 08/02/22 20:33 Ur Leukocyte Esterase Negative (Negative) 08/02/22 20:33 Influenza Type A Ag negative (Negative) 08/02/22 19:45 Influenza Type B Ag negative (Negative) 08/02/22 19:45 SARS-CoV-2 Ag (Rapid) negative (Negative) 08/02/22 19:45 Imaging Data KUB: Radiologist's impression: PROCEDURE INFORMATION: Exam: XR Abdomen Exam date and time: 08/02/2022 7:43 PM Age: 27 years old Clinical indication: Abdominal tenderness and nausea and vomiting; Abdominal pain; TECHNIQUE: Imaging protocol: Radiologic exam of the abdomen. Views: Frontal supine view of the abdomen. 1 View. COMPARISON: CT abdomen pelvis [facility] [id number] 02/10/2022 12:18 PM FINDINGS: Gastrointestinal tract: Normal. No bowel dilation. Bones/joints: Partially visualized intramedullary ba in the proximal right femur. Other findings: Moderate stool burden. XR/XR abdomen 1V* [id number] IMPRESSION: No acute findings.Non acute findings as described above. ? Dictated By: Yaritza Gan MD Signed By: Yaritza Gan MD Signed Date/Time: 08/02/221999 CT Abd/Pel: Radiologist's impression: PROCEDURE INFORMATION: Exam: CT Abdomen And Pelvis With Contrast Exam date and time: 08/02/2022 8:42 PM Age: 27 years old Clinical indication: Abdominal pain; Additional info: Pain, iv contrast only. Will get benadryl and solumedrol prior to TECHNIQUE: Imaging protocol: Computed tomography of the abdomen and pelvis with contrast. Radiation optimization: All CT scans at this facility use at least one of these dose optimization techniques: automated exposure control; mA and/or kV adjustment per patient size (includes targeted exams where dose is matched to clinical indication); or iterative reconstruction. Contrast material: OMNIPAQUE 350; Contrast volume: 100 ml; Contrast route: INTRAVENOUS (IV);? COMPARISON: CT abdomen pelvis [facility] [id number] 02/10/2022 12:18 PM RADIATION DOSE METRICS: Total DLP (mGy-cm): 426.33 FINDINGS: Mediastinal space: There is mucosal thickening of the distal esophagus and gastroesophageal junction. Liver: Normal. No mass. Gallbladder and bile ducts: Normal. No calcified stones. No ductal dilation. Pancreas: Normal. No ductal dilation. Spleen: Normal. No splenomegaly. Adrenal glands: Normal. No mass. Kidneys and ureters: Sub cm cyst in the right kidney with benign features. Follow-up is not necessary. Stomach and bowel: See Mediastinal space finding. Appendix: A normal appendix is identified. Intraperitoneal space: Unremarkable. No free air. No significant fluid collection. Vasculature: Unremarkable. No abdominal aortic aneurysm. Lymph nodes: Unremarkable. No enlarged lymph nodes. Urinary bladder: Unremarkable as visualized. Reproductive: Unremarkable as visualized. Bones/joints: There are degenerative Schmorl's nodes in the lower thoracic spine. Intramedullary ba partially visualized in the right femur. There is adjacent soft tissue calcification. Soft tissues: See Bones/joints finding. CT/CT abdomen pelvis w con* [id number] IMPRESSION: There is mucosal thickening of the distal esophagus and gastroesophageal junction consistent with nonspecific esophagitis/gastritis. Follow-up to exclude neoplasm if clinically warranted. ? COMMENTS: Consistent with the [place] [employer]'s Incidental Findings Committee white paper (J Am Saida Radiol 2018): Any incidental renal lesion less than 1 cm or classified as too small to characterize, or any incidental cystic renal lesion characterized as simple-appearing, is likely benign. No follow-up imaging is recommended for these lesions per consensus recommendations based on imaging criteria. ? Dictated By: Yaritza Gan MD Signed By: Yaritza Gan MD Signed Date/Time: 08/02/222113 Discharge Plan Discharge Patient Disposition: Home Clinical Impression: Gastroenteritis, Abdominal pain, acute, epigastric, Acute hyponatremia, Dehydration, Esophagitis with gastritis Nausea & vomiting Qualifiers: Vomiting type: unspecified Qualified Code(s): R11.2 - Nausea with vomiting, unspecified Acute gastritis with bleeding Qualifiers: Gastritis type: superficial Qualified Code(s): K29.01 - Acute gastritis with bleeding Condition: Stable Prescriptions: New Carafate 1 gram tablet 1 g PO Q6H Qty: 28 2RF Rx Instructions: for stomach ondansetron 4 mg tablet,disintegrating 4 mg PO Q6H PRN (Reason: nausea and vomiting) Qty: 10 2RF Protonix [address] for susp in packet 40 mg PO DAILY Qty: 10 1RF Rx Instructions: For stomach Reglan 10 mg tablet 10 mg PO Q6H PRN (Reason: nausea and vomiting) Qty: 15 1RF No Action ondansetron 4 mg tablet,disintegrating 4 mg PO Q6H PRN (Reason: nausea and vomiting) Qty: 14 0RF Reglan 10 mg tablet 10 mg PO Q6H PRN (Reason: nausea and vomiting) Qty: 20 0RF Discharge Orders: Discharge ED (Routine); Ordered 08/02/22 Ordered By: Parminder Elliott Referrals: Mason Cobso FNP [Primary Care Provider] - 1-3 days Discharge Diet: Full LIquid Discharge Activity: Increase activity as tolerated Patient Instructions: Gastritis (ED), Dehydration (ED), Gastroenteritis (ED), Acute Nausea and Vomiting (ED), Abdominal Pain (ED), Esophagitis (ED), Opioid S afety, Pain Management Activity Restrictions/Additional Instructions: Liquid diet for the next 48 hours. [place] diet for another 48 hours. Advance diet as tolerated after that. Avoid caffeine. Drink mainly water and Gatorade or Powerade for the next 48 hours. May advance to soups and soft food after 48 hours. Return if symptoms worsen. You do have inflammation at the junction of your esophagus and your stomach from your vomiting. Your potassium was a little bit low. Return if symptoms worsen. Take either Zofran or metoclopramide as needed for nausea or vomiting. Stand Alone Forms: Work/School Release Coding Level of Care Code ED Deputy Chief Magistrate for Jose Patel History Comprehensive Exam Comprehensive Medical Decision Making Moderate Complexity
[2022-08-02] MEDS: ondansetron 2 mg/ML SDV 2 mL 4 MG IVP ×2 (19:40→22:19)
[2022-08-02] MEDS: sodium chloride 0.9% 1,000 ML 999 ML IV (19:50)
[2022-08-02] MEDS: pantoprazole 40 mg SDV IVP (19:51)
[2022-08-02 19:57] LABS: Basophils % 0.1 %; Eosinophils # 0.1 10^3/uL (0.0-0.8); Eosinophils % 0.5 %; Hematocrit 45.9 % (42.0-52.0); Hemoglobin 16.3 g/dL (11.7-16.6); Lymphocytes # 2.3 10^3/uL (0.8-4.8); Mean Corpuscular HGB Conc 35.5 g/dL (30.0-36.0); Mean Corpuscular Hemoglobin 29.7 pg (28.0-34.0); Mean Corpuscular Volume 83.6 fl (80-94); Mean Platelet Volume 9.3 fL (7.4-10.4); Monocytes # 2.2 10^3/uL (0.2-0.9); Neutrophils # 11.87 10^3/uL (1.8-7.7); Neutrophils % 72.2 %; Nucleated Red Blood Cells % 0 %; Platelet Count 349 10^3/cmm (130-400); Red Blood Count 5.49 10^6/uL (4.1-5.3); Red Cell Distribution Width 12.4 % (12.1-15.1); White Blood Count 16.5 10^3/uL (4.0-10.0)
[2022-08-02 20:05] VITALS: RESP 22
[2022-08-02] MEDS: HYDROmorphone 1 mg/mL INJ 1 mL 0.5 MG IVP (20:05)
[2022-08-02 20:09] LABS: Alanine Aminotransferase 19 U/L (0-41); Albumin Level 4.8 g/dL (3.5-5.2); Alkaline Phosphatase 58 U/L (40-130); Aspartate Amino Transferase 30 U/L (0-40); Blood Urea Nitrogen 14 mg/dL (6-20); Calcium 10.4 mg/dL (8.5-10.5); Carbon Dioxide 23 mmol/L (22-29); Chloride 91 mmol/L (98-107); Globulin 3.2 g/dL (1.3-4.6); Glomerular Filtration Rate 162.9 mL/min (90-130); Glucose 124 mg/dL (65-115); Lipase 76 U/L (13-60); Osmolality Calculated 268 mOsm/kg (285-295); Sodium 128 mmol/L (136-145); Total Bilirubin 0.8 mg/dL (0.15-1.2)
[2022-08-02 20:19] LABS: Anion Gap 17.2 (5-19); Potassium 3.2 mmol/L (3.5-5.1)
--- NOTE | 2022-08-02 20:26 | CTR_ITS ---
PROCEDURE INFORMATION: Exam: CT Abdomen And Pelvis With Contrast Exam date and time: 08/02/2022 8:42 PM Age: 27 years old Clinical indication: Abdominal pain; Additional info: Pain, iv contrast only. Will get benadryl and solumedrol prior to TECHNIQUE: Imaging protocol: Computed tomography of the abdomen and pelvis with contrast. Radiation optimization: All CT scans at this facility use at least one of these dose optimization techniques: automated exposure control; mA and/or kV adjustment per patient size (includes targeted exams where dose is matched to clinical indication); or iterative reconstruction. Contrast material: OMNIPAQUE 350; Contrast volume: 100 ml; Contrast route: INTRAVENOUS (IV); COMPARISON: CT abdomen pelvis wo con [id number] 02/10/2022 12:18 PM RADIATION DOSE METRICS: Total DLP (mGy-cm): 426.33 FINDINGS: Mediastinal space: There is mucosal thickening of the distal esophagus and gastroesophageal junction. Liver: Normal. No mass. Gallbladder and bile ducts: Normal. No calcified stones. No ductal dilation. Pancreas: Normal. No ductal dilation. Spleen: Normal. No splenomegaly. Adrenal glands: Normal. No mass. Kidneys and ureters: Sub cm cyst in the right kidney with benign features. Follow-up is not necessary. Stomach and bowel: See Mediastinal space finding. Appendix: A normal appendix is identified. Intraperitoneal space: Unremarkable. No free air. No significant fluid collection. Vasculature: Unremarkable. No abdominal aortic aneurysm. Lymph nodes: Unremarkable. No enlarged lymph nodes. Urinary bladder: Unremarkable as visualized. Reproductive: Unremarkable as visualized. Bones/joints: There are degenerative Schmorl's nodes in the lower thoracic spine. Intramedullary ba partially visualized in the right femur. There is adjacent soft tissue calcification. Soft tissues: See Bones/joints finding. CT/CT abdomen pelvis w con* [id number] IMPRESSION: There is mucosal thickening of the distal esophagus and gastroesophageal junction consistent with nonspecific esophagitis/gastritis. Follow-up to exclude neoplasm if clinically warranted. COMMENTS: Consistent with the [place] [employer]'s Incidental Findings Committee white paper (J Am Saida Radiol 2018): Any incidental renal lesion less than 1 cm or classified as too small to characterize, or any incidental cystic renal lesion characterized as simple-appearing, is likely benign. No follow-up imaging is recommended for these lesions per consensus recommendations based on imaging criteria.
[2022-08-02] MEDS: metoclopramide 5 mg/mL SDV 2 mL 10 MG IVP (20:37)
[2022-08-02] MEDS: diphenhydrAMINE 50 mg/mL SDV 1mL 25 MG IVP (20:37)
[2022-08-02 20:39] VITALS: BP 133/78; PULSE 65; RESP 16; O2SAT 97
[2022-08-02 20:42] LABS: Add Urine Microscopic? NO; Charge for UA Resulting for Rev
[2022-08-02 20:48] LABS: Bilirubin Urine Neg (Negative); Blood Urine Neg (Negative); Glucose Urine UA Norm (Normal); Ketones Urine 2+ (Negative); Nitrate Urine Negative (Negative); Protein Urine Neg (Negative); Specific Gravity, Urine 1.015 (1.005-1.030); Urine Appearance Clear (CLEAR); Urine Color Yellow (Yellow); pH Urine 7 (5-7)
[2022-08-02 20:49] LABS: Leukocyte Esterase Urine Negative (Negative); Urobilinogen Urine Neg (Negative)
[2022-08-02] MEDS: iohexol 350 mg/mL 500 mL Btl (per mL) IV (20:51)
[2022-08-02 21:00] VITALS: BP 128/65; PULSE 68; RESP 16; O2SAT 97
[2022-08-02 22:00] VITALS: BP 122/65; PULSE 64; RESP 14; O2SAT 95
[2022-08-02 22:00] LABS: SARS Covid-2 Antigen negative (Negative)
[2022-08-02 22:01] LABS: Influenza A by IFA negative (Negative); Influenza B by IFA negative (Negative)
[2022-08-02] MEDS: lactated ringers 1,000 ML 2000 ML IV (22:19)
[2022-08-02 23:03] VITALS: BP 129/74; PULSE 84; RESP 16; O2SAT 97
== END 2022-08-02 23:00 | disposition home or self-care (01) ==
PROVIDERS: Emergency Medicine; Emergency Provider Family Medicine; PCP Nurse Practitioner Family
DX: K52.9 Noninfective gastroenteritis and colitis, unspecified (principal); E87.1 Hypo-osmolality and hyponatremia; E86.0 Dehydration; K20.90 Esophagitis, unspecified without bleeding; K29.01 Acute gastritis with bleeding; Z20.822 Contact with and (suspected) exposure to COVID-19; F17.210 Nicotine dependence, cigarettes, uncomplicated
CPT/HCPCS: 74018; 74177; 80053; 81003; 83690; 85025; 87426; 87804; 96361; 96374; 96375; 96376; 99285; C9113; J1170; J1200; J2405; J2765; J2930; J7030; J7120; Q9967

== ENCOUNTER 2022-08-03 16:21 | Observation (INO) | payer SELFPAY ==
[2022-08-03 16:38] VITALS: BP 147/88; PULSE 76; RESP 16; TEMP 36.8; O2SAT 97; BMI 23.7
--- NOTE | 2022-08-03 18:33 | ED_ITS ---
HPI - Nausea/Vomiting/Diarrhea General: Chief complaint: Nausea/Vomiting/Diarrhea Stated complaint: Can't keep liquids down Time Seen by Provider: 08/03/22 18:33 History of Present Illness: Mr. Rivera is a 27-year-old gentleman presenting to the emergency department as a return visit for nausea and vomiting associated with epigastric abdominal pain. Onset of symptoms was 3 days ago and he did present to the ER yesterday. Laboratory studies at that time revealed dehydration and esophagitis/gastritis. He was improved upon treatment and discharged with oral medications however is no longer able to tolerate these oral medications. Continues to have emesis with small amount of blood. Intensity symptoms is moderate to severe. Course has persisted. Reports a few episodes in the past few months of similar which has not been evaluated by endoscopy. No other specific changes in health, exacerbating, or alleviating factors identified. Onset (ago): day(s) Description of vomiting: watery Associated nausea: Yes Associated abdominal pain: Yes Location of pain: Epigastric Radiation: diffuse Severity: moderate Quality: other Exacerbating factors: eating and vomiting Relieving factors: none Associated symtoms: Reports nausea Review of Systems General: Reports: 10 or more systems reviewed and unremarkable except in HPI and below GI: Reports: nausea PFSH ED PFSH: Medical History No pertinent family history Surgical History No pertinent past surgical history Family History Denies family history of Diabetes Dementia Hypertension Social History Smoking and tobacco status: current some day smoker Alcohol intake: current Alcohol intake frequency: few times a week Physical Exam Const: COMMON NORMALS: alert GENERAL APPEARANCE: cooperative, well developed and ill appearing (Somewhat) HENMT: COMMON NORMALS: normocephalic and atraumatic HEAD & SCALP: normocephalic and atraumatic THROAT: posterior oropharynx normal OTHER: Dry mucous membranes Eye: COMMON NORMALS: conjunctivae normal CONJUNCTIVA: Yes conjunctivae normal SCLERA: sclerae normal Neck/C-Spine: COMMON NORMALS: supple GENERAL: Yes trachea midline Resp: COMMON NORMALS: clear to auscultation bilaterally EFFORT & INSPECTION: Yes able to speak in complete sentences AUSCULTATION: clear to auscultation bilaterally Cardio: COMMON NORMALS: regular rate and regular rhythm RATE: regular rate RHYTHM: regular rhythm GI: COMMON NORMALS: Soft to palpation PALPATION: Yes Soft to palpation, Yes Tenderness to palpation present (GI) (Epigastric), No Guarding due to palpation present (GI) and No Rigid due to palpation Extremity: GENERAL: Yes normal exam except as noted and No edema Neuro: COMMON NORMALS: moves all extremities SENSORIUM/ORIENTATION: Yes alert and No Orientation impaired Psych: COMMON NORMALS: mental status grossly normal and Normal thought process present THOUGHT PROCESS: Normal thought process present Course Vital Signs: Vital signs: Vital Signs Temperature 98.7 F 08/04/22 15:11 Pulse Rate 66 08/04/22 15:11 Respiratory Rate 16 08/04/22 15:11 Blood Pressure 135/80 08/04/22 15:11 Pulse Oximetry 98 08/04/22 15:11 Oxygen Delivery Me thod 08/04/22 11:32 MDM - Nausea/Vomiting/Diarrhea Medical Decision Making 27-year-old gentleman with recent diagnosis of esophagitis/gastritis presenting due to continued symptoms and inability to tolerate oral intake including medications at home. Patient appears clinically dehydrated and continues to have abdominal pain on palpation though no evidence of acute surgical abdomen. Labs with improving leukocytosis, normal hemoglobin. Metabolic panel with dehydration. Prior imaging reviewed and do not believe the patient requires repeat imaging based on clinical exam and reported history including similar symptoms to prior. Patient given multiple doses of antiemetic and IV fluids with only mild improvement in symptoms that quickly returned. He is unable to tolerate oral intake and therefore requires inpatient observation for continued symptom treatment and rehydration. The results of ED evaluation were discussed with the patient including plan for admission due to requirement for level of care not available if discharged to prevent significant worsening/deterioration. Patient agreeable with plan. Discussed with hospitalist service who was agreeable to admit patient. Medical Records I reviewed the patient's medical records. Lab Data I reviewed the patient's lab results. 08/04/22 01:37 08/04/22 01:37 Laboratory Results WBC 14.2 10^3/uL (4.0-10.0) H 08/03/22 17:54 RBC 5.25 10^6/uL (4.1-5.3) 08/03/22 17:54 Hgb 15.5 g/dL (11.7-16.6) 08/03/22 17:54 Hct 44.3 % (42.0-52.0) 08/03/22 17:54 MCV 84.4 fl (80-94) 08/03/22 17:54 MCH 29.5 pg (28.0-34.0) 08/03/22 17:54 MCHC 35.0 g/dL (30.0-36.0) 08/03/22 17:54 RDW 12.3 % (12.1-15.1) 08/03/22 17:54 Plt Count 318 10^3/cmm (130-400) 08/03/22 17:54 MPV 9.2 fL (7.4-10.4) 08/03/22 17:54 Neut % (Auto) 68.3 % 08/03/22 17:54 Lymph % (Auto) 17.7 % 08/03/22 17:54 [place] % (Auto) 12.9 % 08/03/22 17:54 Eos % (Auto) 0.5 % 08/03/22 17:54 Baso % (Auto) 0.2 % 08/03/22 17:54 Neut # (Auto) 9.67 10^3/uL (1.8-7.7) H 08/03/22 17:54 Lymph # (Auto) 2.5 10^3/uL (0.8-4.8) 08/03/22 17:54 [place] # (Auto) 1.8 10^3/uL (0.2-0.9) H 08/03/22 17:54 Eos # (Auto) 0.1 10^3/uL (0.0-0.8) 08/03/22 17:54 Baso # (Auto) 0.0 10^3/uL (0.0-0.1) 08/03/22 17:54 Nucleated RBC % (auto) 0 % 08/03/22 17:54 Nucleated RBCs # 0.0 /100WBC 08/03/22 17:54 Sodium 132 mmol/L (136-145) L 08/03/22 19:23 Potassium 3.3 mmol/L (3.5-5.1) L 08/03/22 19:23 Chloride 95 mmol/L (98-107) L 08/03/22 19:23 Carbon Dioxide 24 mmol/L (22-29) 08/03/22 19:23 Anion Gap 16.3 (5-19) 08/03/22 19:23 BUN 14 mg/dL (6-20) 08/03/22 19:23 Creatinine 0.7 mg/dL (0.7-1.2) 08/03/22 19:23 GFR Calculation 136.3 mL/min (90-130) H 08/03/22 19:23 Glucose 111 mg/dL (65-115) 08/03/22 19:23 Calculated Osmolality 275 mOsm/kg (285-295) L 08/03/22 19:23 Calcium 10.2 mg/dL (8.5-10.5) 08/03/22 19:23 Total Bilirubin 0.9 mg/dL (0.15-1.2) 08/03/22 19:23 AST 20 U/L (0-40) 08/03/22 19:23 ALT 18 U/L (0-41) 08/03/22 19:23 Alkaline Phosphatase 56 U/L (40-130) 08/03/22 19:23 Total Protein 7.7 g/dL (6.6-8.7) 08/03/22 19:23 Albumin 4.8 g/dL (3.5-5.2) 08/03/22 19:23 Globulin 2.9 g/dL (1.3-4.6) 08/03/22 19:23 Lipase 31 U/L (13-60) 08/03/22 19:23 Urine Opiates Screen Negative ng/mL (Negative) 08/03/22 21:55 Ur Barbiturates Screen Negative ng/mL (Negative) 08/03/22 21:55 Ur Phencyclidine Scrn Negative ng/mL (Negative) 08/03/22 21:55 Ur Amphetamines Screen Negative ng/mL (Negative) 08/03/22 21:55 U Benzodiazepines Scrn Negative ng/mL (Negative) 08/03/22 21:55 Urine Cocaine Screen Negative ng/mL (Negative) 08/03/22 21:55 U Marijuana (THC) Screen Positive ng/mL (Negative) H 08/03/22 21:55 Discharge Plan Discharge Patient Disposition: Placed in Observation Admit Provider: Luzmaria Kaplan Clinical Impression: Intractable nausea and vomiting, Dehydration, Esophagitis with gastritis, Abdominal pain, acute, epigastric Discharge Diet: Advance as tolerated Discharge Activity: Resume usual activity Coding Level of Care Code ED Commercial Construction Project Manager for Jose Patel
[2022-08-03] MEDS: sodium chloride 0.9% 1,000 ML 999 ML IV ×2 (19:21→20:18)
[2022-08-03] MEDS: metoclopramide 5 mg/mL SDV 2 mL 10 MG IVP ×2 (19:21→21:54)
[2022-08-03 19:34] LABS: Basophils % 0.2 %; Eosinophils # 0.1 10^3/uL (0.0-0.8); Eosinophils % 0.5 %; Hematocrit 44.3 % (42.0-52.0); Hemoglobin 15.5 g/dL (11.7-16.6); Lymphocytes # 2.5 10^3/uL (0.8-4.8); Lymphocytes % 17.7 %; Mean Corpuscular Hemoglobin 29.5 pg (28.0-34.0); Mean Corpuscular Volume 84.4 fl (80-94); Mean Platelet Volume 9.2 fL (7.4-10.4); Monocytes # 1.8 10^3/uL (0.2-0.9); Monocytes % 12.9 %; Neutrophils # 9.67 10^3/uL (1.8-7.7); Neutrophils % 68.3 %; Nucleated Red Blood Cells % 0 %; Platelet Count 318 10^3/cmm (130-400); Red Blood Count 5.25 10^6/uL (4.1-5.3); Red Cell Distribution Width 12.3 % (12.1-15.1); White Blood Count 14.2 10^3/uL (4.0-10.0)
[2022-08-03 20:01] LABS: Alanine Aminotransferase 18 U/L (0-41); Albumin Level 4.8 g/dL (3.5-5.2); Alkaline Phosphatase 56 U/L (40-130); Aspartate Amino Transferase 20 U/L (0-40); Blood Urea Nitrogen 14 mg/dL (6-20); Calcium 10.2 mg/dL (8.5-10.5); Carbon Dioxide 24 mmol/L (22-29); Chloride 95 mmol/L (98-107); Globulin 2.9 g/dL (1.3-4.6); Glomerular Filtration Rate 136.3 mL/min (90-130); Glucose 111 mg/dL (65-115); Lipase 31 U/L (13-60); Osmolality Calculated 275 mOsm/kg (285-295); Sodium 132 mmol/L (136-145); Total Bilirubin 0.9 mg/dL (0.15-1.2); Total Protein 7.7 g/dL (6.6-8.7)
[2022-08-03 20:03] LABS: Anion Gap 16.3 (5-19); Potassium 3.3 mmol/L (3.5-5.1)
[2022-08-03 20:32] VITALS: BP 129/77; PULSE 82; RESP 16; O2SAT 98
[2022-08-03] MEDS: alum-mag-hydroxide-sime 30 mL UDC PO (21:00)
[2022-08-03] MEDS: morphine 4 mg/mL SDV 1 mL IVP (21:54)
--- NOTE | 2022-08-03 22:18 | P.HP_ITS ---
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 Patient is endorsing to marijuana, last use was around Wednesday, symptoms started on Wednesday, has had total more than 12 episodes of emesis, he was not able to keep anything down, he was seen in the ER before he was given Reglan, Zofran but because of recurrent emesis could not control his symptoms. He also noticed couple of episode of hematemesis. He presented to the ER again this time because of recurrent emesis seen was made to admit him. He had 3 episodes of emesis in the ER. CT abdomen pelvis is showing gastritis/esophagitis. He has quit smoking, does not drink alcohol daily basis. He works full-time. Review of Systems Const: Denies: fever(s) Eyes: Denies: change in vision ENMT: Denies: throat pain Card: Denies: chest pain Resp: Denies: dyspnea GI: Reports: nausea and vomiting; Denies: abdominal pain : Denies: flank pain Musc: Denies: neck pain Skin/Breast: Denies: rash Neuro: Denies: headache(s) Psych: Denies: anxiety Endo: Denies: polyuria Myles/Lymph: Denies: easy bruising All/Imm: Denies: urticaria Medications/Allergies Home Medications Medication Instructions Recorded Confirmed Last Taken Type ondansetron 4 mg disintegrating 4 mg PO Q6H PRN nausea and 02/08/22 Unknown Rx tablet vomiting #14 tabs metoclopramide HCl 10 mg tablet 10 mg PO Q6H PRN nausea and 02/10/22 Unknown Rx (Reglan) vomiting #20 tabs metoclopramide HCl 10 mg tablet 10 mg PO Q6H PRN nausea and 08/02/22 Unknown Rx (Reglan) vomiting #15 tabs ondansetron 4 mg disintegrating 4 mg PO Q6H PRN nausea and 08/02/22 Unknown Rx tablet vomiting #10 tabs pantoprazole 40 mg granules 40 mg PO DAILY #10 ea 08/02/22 Unknown Rx delayed-release for susp in packet (Protonix) sucralfate 1 gram tablet (Carafate) 1 g PO Q6H #28 tabs 08/02/22 Unknown Rx Allergies Allergy/AdvReac Type Severity Reaction Status Date / Time shellfish derived Allergy ADR-Drowsy Verified 02/08/22 11:46 PFSH Acute PFSH: Medical History No pertinent family history Surgical History No pertinent past surgical history Family History Denies family history of Diabetes Dementia Hypertension Social History Smoking and tobacco status: current some day smoker Alcohol intake: current Alcohol intake frequency: few times a week Vitals/I&O/Wt Last Vital Signs Temp 98.3 F 08/03/22 16:38 Pulse 82 08/03/22 20:32 Resp 16 08/03/22 20:32 BP 129/77 08/03/22 20:32 Pulse Ox 98 08/03/22 20:32 O2 Del Method 08/03/22 16:38 08/03/22 08/03/22 08/03/22 06:59 14:59 22:59 Intake Total 1948.05 / 1948.05 Balance 1948.05 / 1948.05 Weight last 48 hrs Weight 77.111 kg Physical Exam Narrative: Young male Dehydrated Currently in distress because of emesis Awake and alert Nonfocal neuro exam Abdomen soft Nontender no signs of peritonitis Afebrile No signs of meningitis S1, S2 Hemodynamically stable Doing well on room air Pleasant and cooperative Data 08/03/22 17:54 08/03/22 19:23 A&P Assessment and plan (1) Gastroenteritis: (2) Abdominal pain, acute, epigastric: (3) Nausea & vomiting: Qualifiers: Vomiting type: unspecified Qualified Code(s): R11.2 - Nausea with vomiting, unspecified (4) Acute gastritis with bleeding: Qualifiers: Gastritis type: superficial Qualified Code(s): K29.01 - Acute gastritis with bleeding (5) Acute hyponatremia: (6) Dehydration: (7) Esophagitis with gastritis: (8) Intractable nausea and vomiting: Plan Recurrent nausea vomiting Rule out marijuana related cyclical vomiting Requested drug screen CT abdomen showed gastritis esophagitis We will start him on Protonix 40 mg IV twice daily along sucralfate Start IV fluids for hypokalemia and dehydration Most likely he will be discharged in the morning Controlled symptoms with Reglan and Zofran Ware diet Full code DVT prophylaxis not needed Attestations Medical Necessity Statement*: Anticipating discharge within 48 hours Time Spent in Patient Care: 40 Coding Level of Care Code Acute Onboarding Specialist for [facility] Fwd Diagnoses Gastroenteritis K52.9 Abdominal pain, acute, epigastric R10.13 Nausea & vomiting R11.2 Vomiting type: unspecified Acute gastritis with bleeding K29.01 Gastritis type: superficial Acute hyponatremia E87.1 Dehydration E86.0 Esophagitis with gastritis K29.70; K20.90 Intractable nausea and vomiting R11.2
[2022-08-03 23:33] LABS: Procalcitonin 0.03 ng/mL (0-0.5)
[2022-08-03 23:39] VITALS: BP 139/71; PULSE 99; RESP 14; TEMP 36.9; O2SAT 98
[2022-08-04 00:23] LABS: Amphetamines Screen Urine Negative (Negative); Barbiturates Screen Urine Negative (Negative); Benzodiazepines Screen Urine Negative (Negative); Cocaine Screen Urine Negative (Negative); Opiate Screen Urine Negative (Negative); PCP Screen Urine Negative (Negative); THC Screen Urine Positive (Negative)
[2022-08-04] MEDS: sodium chlor 0.9% + KCl 40 mEq 40 MEQ/1,000 ML BAG 100 MEQ IV (00:46)
[2022-08-04] MEDS: sucralfate 1 gm Tablet PO ×3 (00:47→11:20)
[2022-08-04] MEDS: pantoprazole 40 mg SDV IVP ×2 (00:49→11:20)
[2022-08-04 01:51] LABS: Basophils % 0.3 %; Eosinophils # 0.1 10^3/uL (0.0-0.8); Eosinophils % 0.9 %; Hematocrit 38.3 % (42.0-52.0); Hemoglobin 12.9 g/dL (11.7-16.6); Lymphocytes # 2.4 10^3/uL (0.8-4.8); Mean Corpuscular HGB Conc 33.7 g/dL (30.0-36.0); Mean Corpuscular Hemoglobin 29.5 pg (28.0-34.0); Mean Corpuscular Volume 87.6 fl (80-94); Mean Platelet Volume 9.3 fL (7.4-10.4); Monocytes # 1.6 10^3/uL (0.2-0.9); Monocytes % 14.5 %; Neutrophils # 6.78 10^3/uL (1.8-7.7); Neutrophils % 61.8 %; Nucleated Red Blood Cells % 0 %; Platelet Count 256 10^3/cmm (130-400); Red Blood Count 4.37 10^6/uL (4.1-5.3); Red Cell Distribution Width 12.5 % (12.1-15.1)
[2022-08-04 03:01] LABS: Anion Gap 11.6 (5-19); Blood Urea Nitrogen 11 mg/dL (6-20); Calcium 8.5 mg/dL (8.5-10.5); Carbon Dioxide 27 mmol/L (22-29); Chloride 107 mmol/L (98-107); Glucose 111 mg/dL (65-115); Magnesium 2.1 mg/dL (1.7-2.3); Osmolality Calculated 294 mOsm/kg (285-295); Potassium 3.6 mmol/L (3.5-5.1); Sodium 142 mmol/L (136-145)
[2022-08-04 04:00] VITALS: BP 128/67; PULSE 84; RESP 15; TEMP 37.1; O2SAT 98
[2022-08-04] MEDS: ondansetron 2 mg/ML SDV 2 mL 4 MG IVP (06:02)
[2022-08-04 08:00] VITALS: BP 138/81; PULSE 67; RESP 16; TEMP 36.8; O2SAT 99
[2022-08-04 08:24] VITALS: RESP 18
[2022-08-04] MEDS: metoclopramide 5 mg/mL SDV 2 mL IVP (08:24)
[2022-08-04] MEDS: morphine IR 15 mg Tablet PO (08:24)
--- NOTE | 2022-08-04 09:36 | PC.NURSE ---
patient got sick and vomited. back in the shower he wanted to go. refused rest of his meal tray
--- NOTE | 2022-08-04 10:17 | PC.CHAP ---
Pastoral Care Encounter/Spiritual Assessment Type of Contact [] Declined campaign advisor visit [] Patient/Family/Request visit [] Outpatient visit [] Follow-up visit [] Physician referral [] Code/Alert [x] Routine visit [] Staff referral [] Actively dying [] Patient sleeping [] Family support [] [] Out of room [] Palliative care [] [x] Receiving care in room [] Pre-surgical visit [] Trauma [] Long length of stay [] ICU visit [] Other: Relational/Emotional Strength [] Patient feels connected with others/family/visitors/staff [] Distress [] Loneliness/isolation [] Abandonment Spirituality of Patient [] Person of Delmi [] Attends Synagogue of their [place] [] Believes in Prayer [] Reads Bible or Yazdanism materials [] There are Spiritual issues to be addressed Education Nurse Interventions [] Prayer [] Active listening [] Non-anxious presence [] Spiritual/emotional support [] Crisis/trauma care [] Spiritual counseling [] Bereavement support [] Provided bereavement packet [] Provided Bible/devotional materials [] Provided toy/stuffed animal, coloring book to patient or family member [] Provided Communion [] Anointing/[place] [] Salvation [] Completed spiritual assessment [] Other: Impact on Illness or Injury [] Angry [] Fearful [] Anxious [] Often cries [] Exhaustion [] Unable to work [] Unable to attend congregational [] Unable to walk/stand [] Unable to read [] Unable to drive [] Unable to eat/drink [] Unable to sleep [] Unable to be with family [] Patient intubated [] Other: Summary Time spent with patient
[2022-08-04 11:32] VITALS: BP 135/80; PULSE 66; RESP 16; TEMP 37.1; O2SAT 98
--- NOTE | 2022-08-04 14:31 | PM.DCS ---
Discharge Providers Date of Admission: 08/03/22 22:06 Date of Discharge: August 04, 2022 Attending Provider at Admission: Luzmaria Kaplan MD Attending Provider at Discharge: Augustina Cordova MD Primary Care Provider: Mason Cobos Diagnoses at Discharge Discharge Diagnosis (1) Gastroenteritis: Status: Acute (2) Abdominal pain, acute, epigastric: Status: Acute (3) Nausea & vomiting: Status: Acute Qualifiers: Vomiting type: unspecified Qualified Code(s): R11.2 - Nausea with vomiting, unspecified (4) Acute gastritis with bleeding: Status: Acute Qualifiers: Gastritis type: superficial Qualified Code(s): K29.01 - Acute gastritis with bleeding (5) Acute hyponatremia: Status: Acute (6) Dehydration: Status: Acute (7) Esophagitis with gastritis: Status: Acute (8) Intractable nausea and vomiting: Status: Acute Reason for Visit Reason for Visit: Can't keep liquids down Hospital Course Hospital Course 27 year old male admitetd to the hospital with c/o multiple episodes of vomiting, up to 12 per day with inability to keep food or medications down. CT abdomen was negative for cholcytitis or pancretatis but showed evidence of gastritis. Differentials include stress related gastritis vs acute viral gastroenteritis vs NSAID associated gastrirtis. Patient did well with supportive treatment therapy of Protonix, IV fluids, nausea treatment with Zofran. He is able to tolerate a full liquid diet, has an appetite and wishes to advance. Given that he is overall clinically stable, has not had any further episodes of emesis he stable for discharge to home. Discharged with recommendations to continue Protonix 40 mg p.o. twice daily and sucralfate as prescribed earlier for 14 days. If symptoms are persistent at the end of 14 days, follow-up with primary care provider and consider referral for endoscopic evaluation and Helicobacter testing. Advised to avoid NSAIDs and cut back on spicy food. He can advance his diet as tolerated from GI soft to regular diet. Physical Exam Narrative: General: No acute distress, AO x3 HEENT: PERRLA, pupils bilaterally equal and reactive, pallors not present Chest: Normal vesicular breath sounds, no added sounds, equal good air entry bilaterally CVS: S1-S2 regular, no murmurs, no tachycardia, no gallops, no rubs Abdomen: Soft, nontender, no organomegaly, bowel sounds present Neuro: No focal deficits, no facial deformity, AO x3, power 5/5 in all limbs Discharge Data Studies Completed and Pending Laboratory Results WBC 11.0 10^3/uL (4.0-10.0) H 08/04/22 01:37 RBC 4.37 10^6/uL (4.1-5.3) 08/04/22 01:37 Hgb 12.9 g/dL (11.7-16.6) 08/04/22 01:37 Hct 38.3 % (42.0-52.0) L 08/04/22 01:37 MCV 87.6 fl (80-94) 08/04/22 01:37 MCH 29.5 pg (28.0-34.0) 08/04/22 01:37 MCHC 33.7 g/dL (30.0-36.0) 08/04/22 01:37 RDW 12.5 % (12.1-15.1) 08/04/22 01:37 Plt Count 256 10^3/cmm (130-400) 08/04/22 01:37 MPV 9.3 fL (7.4-10.4) 08/04/22 01:37 Neut % (Auto) 61.8 % 08/04/22 01:37 Lymph % (Auto) 22.0 % 08/04/22 01:37 Baldwin % (Auto) 14.5 % 08/04/22 01:37 Eos % (Auto) 0.9 % 08/04/22 01:37 Baso % (Auto) 0.3 % 08/04/22 01:37 Neut # (Auto) 6.78 10^3/uL (1.8-7.7) 08/04/22 01:37 Lymph # (Auto) 2.4 10^3/uL (0.8-4.8) 08/04/22 01:37 Baldwin # (Auto) 1.6 10^3/uL (0.2-0.9) H 08/04/22 01:37 Eos # (Auto) 0.1 10^3/uL (0.0-0.8) 08/04/22 01:37 Baso # (Auto) 0.0 10^3/uL (0.0-0.1) 08/04/22 01:37 Nucleated RBC % (auto) 0 % 08/04/22 01:37 Nucleated RBCs # 0.0 /100WBC 08/04/22 01:37 Sodium 142 mmol/L (136-145) 08/04/22 01:37 Potassium 3.6 mmol/L (3.5-5.1) 08/04/22 01:37 Chloride 107 mmol/L (98-107) 08/04/22 01:37 Carbon Dioxide 27 mmol/L (22-29) 08/04/22 01:37 Anion Gap 11.6 (5-19) 08/04/22 01:37 BUN 11 mg/dL (6-20) 08/04/22 01:37 Creatinine 0.9 mg/dL (0.7-1.2) 08/04/22 01:37 GFR Calculation 102.0 mL/min (90-130) 08/04/22 01:37 Glucose 111 mg/dL (65-115) 08/04/22 01:37 Calculated Osmolality 294 mOsm/kg (285-295) 08/04/22 01:37 Calcium 8.5 mg/dL (8.5-10.5) 08/04/22 01:37 Magnesium 2.1 mg/dL (1.7-2.3) 08/04/22 01:37 Total Bilirubin 0.9 mg/dL (0.15-1.2) 08/03/22 19:23 AST 20 U/L (0-40) 08/03/22 19:23 ALT 18 U/L (0-41) 08/03/22 19:23 Alkaline Phosphatase 56 U/L (40-130) 08/03/22 19:23 C-Reactive Protein 3.0 mg/L (0.0-4.9) 08/04/22 01:37 Total Protein 7.7 g/dL (6.6-8.7) 08/03/22 19:23 Albumin 4.8 g/dL (3.5-5.2) 08/03/22 19:23 Globulin 2.9 g/dL (1.3-4.6) 08/03/22 19:23 Lipase 31 U/L (13-60) 08/03/22 19:23 Procalcitonin 0.03 ng/mL (0-0.5) 08/03/22 22:34 Urine Opiates Screen Negative ng/mL (Negative) 08/03/22 21:55 Ur Barbiturates Screen Negative ng/mL (Negative) 08/03/22 21:55 Ur Phencyclidine Scrn Negative ng/mL (Negative) 08/03/22 21:55 Ur Amphetamines Screen Negative ng/mL (Negative) 08/03/22 21:55 U Benzodiazepines Scrn Negative ng/mL (Negative) 08/03/22 21:55 Urine Cocaine Screen Negative ng/mL (Negative) 08/03/22 21:55 U Marijuana (THC) Screen Positive ng/mL (Negative) H 08/03/22 21:55 Vitals Last Vital Signs Temp 98.7 F 08/04/22 11:32 Pulse 66 08/04/22 11:32 Resp 16 08/04/22 11:32 BP 135/80 08/04/22 11:32 Pulse Ox 98 08/04/22 11:32 O2 Del Method 08/04/22 11:32 Discharge Plan Discharge Patient Disposition: Home Condition: Stable Prescriptions: Continued ondansetron 4 mg tablet,disintegrating 4 mg PO Q6H PRN (Reason: nausea and vomiting) Qty: 10 2RF metoclopramide HCl [Reglan] 10 mg tablet 10 mg PO Q6H PRN (Reason: nausea and vomiting) Qty: 15 1RF Changed Carafate 1 gram tablet 1 g PO Q12H 14 Days Qty: 28 2RF Protonix [address] for susp in packet 40 mg PO BID 14 Days Qty: 28 1RF Discharge Orders: Discharge Order (Routine); Ordered 08/04/22 Ordered By: Augustina Cordova Referrals: Meghan Hsu FNP [Referring] - 08/11/22 2:20 pm Discharge Diet: Advance as tolerated Discharge Activity: Resume usual activity Patient Instructions: Metoclopramide (By mouth), Sucralfate (By mouth), Ondansetron (By mouth), Pantoprazole (By mouth), Enteritis (DC), Opioid Safety Activity Restrictions/Additional Instructions: Avoid pain killers and spicy food. Slowly advance diet as tolerated. Take protonix and sucralfate twice daily as instructed for 14 days. If no improvement in symptoms, visit with your primary care doctor to evaluate for endoscopy. Use zofran/ondansetron as first line for nausea and vomiting. If no relief with zofran three times a day, can take additional metoclopramide. Discharge Attestations Time Spent in Discharge Care*: less than 30 min Quality Metrics Clinical Quality Measures [ No reported AMI, CVA or VTE this stay] Coding Level of Care Code Acute Chg FW DC note Diagnoses Gastroenteritis K52.9 Abdominal pain, acute, epigastric R10.13 Nausea & vomiting R11.2 Vomiting type: unspecified Acute gastritis with bleeding K29.01 Gastritis type: superficial Acute hyponatremia E87.1 Dehydration E86.0 Esophagitis with gastritis K29.70; K20.90 Intractable nausea and vomiting R11.2
[2022-08-04 15:11] VITALS: BP 135/80; PULSE 66; RESP 16; TEMP 37.1; O2SAT 98
--- NOTE | 2022-08-04 15:12 | PC.NURSE ---
Discharge Note Patient discharged to home via private vehicle accompanied by mom and dad. Discharge instructions reviewed with patient and/or senior human resources representative. Mobile pharmacy medications and/or prescriptions provided. Belongings/home medications returned.
--- NOTE | 2022-08-04 18:02 | PC.NURSE ---
After d/c, patient's mother called stating that when they went to [facility] to shredder picker Rx, the Protonix was $500. I called and obtained a verbal order from Dr. Cordova for Protonix tablets. I called [facility] and cancelled the original order and provided the order for tablets. I called back to patient's mother, [place], and provided this information to her. She verbalizes understanding and states she will pick those up.
== END 2022-08-04 15:12 | disposition home or self-care (01) ==
LOC: ER 22:04 → MEDSURG 22:06
PROVIDERS: Nurse Practitioner Family; Admitting Provider Internal Medicine; Emergency Provider Emergency Medicine; PCP Nurse Practitioner Family; Visit Provider Student in an Organized Health Care Education/Training Program
DX: K52.9 Noninfective gastroenteritis and colitis, unspecified (principal); R10.13 Epigastric pain; R11.2 Nausea with vomiting, unspecified; E87.1 Hypo-osmolality and hyponatremia; E86.0 Dehydration; K29.70 Gastritis, unspecified, without bleeding; K20.90 Esophagitis, unspecified without bleeding; F17.210 Nicotine dependence, cigarettes, uncomplicated
CPT/HCPCS: 36415; 80048; 80053; 80306; 83690; 83735; 84145; 85025; 86140; 96361; 96374; 96375; 96376; 99285; C9113; G0378; J2270; J2405; J2765; J7030

== ENCOUNTER 2022-10-08 08:09 | Emergency (ER) | payer SELFPAY ==
[2022-10-08 08:46] VITALS: BP 163/100; PULSE 79; RESP 18; TEMP 37.2; O2SAT 99; BMI 24.4
--- NOTE | 2022-10-08 08:55 | ECG_ITS ---
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 Measurements Intervals [place] Rate: 74 P: 11 OR: 129 QRS: 74 QRSD: 103 T: 67 QT: 369 QTc: 411 Interpretive Statements SINUS RHYTHM INCOMPLETE RIGHT BUNDLE BRANCH BLOCK [90+ ms QRS DURATION, TERMINAL R IN V1/V2, 40+ ms S IN I/aVL/V4/V5/V6] No previous ECG available for comparison Electronically Signed On 10-08-2022 20:03:46 FIRER LOW PRESSURE by Cheryl Ferrell M.D. [id number]
[2022-10-08 10:03] LABS: Basophils % 0.1 %; Eosinophils % 0.1 %; Hematocrit 48.3 % (42.0-52.0); Hemoglobin 16.2 g/dL (11.7-16.6); Lymphocytes # 1.1 10^3/uL (0.8-4.8); Lymphocytes % 9.4 %; Mean Corpuscular HGB Conc 33.5 g/dL (30.0-36.0); Mean Corpuscular Hemoglobin 28.8 pg (28.0-34.0); Mean Corpuscular Volume 85.8 fl (80-94); Mean Platelet Volume 9.5 fL (7.4-10.4); Monocytes # 0.7 10^3/uL (0.2-0.9); Neutrophils # 9.73 10^3/uL (1.8-7.7); Neutrophils % 84.1 %; Nucleated Red Blood Cells % 0 %; Platelet Count 333 10^3/cmm (130-400); Red Blood Count 5.63 10^6/uL (4.1-5.3); Red Cell Distribution Width 12.2 % (12.1-15.1); White Blood Count 11.6 10^3/uL (4.0-10.0)
[2022-10-08 10:15] LABS: Lactic Sepsis W/Reflex 2.2 mmol/L (0.5-2.2)
[2022-10-08 10:17] LABS: Alanine Aminotransferase 19 U/L (0-41); Albumin Level 5.1 g/dL (3.5-5.2); Alkaline Phosphatase 63 U/L (40-130); Aspartate Amino Transferase 19 U/L (0-40); Blood Urea Nitrogen 14 mg/dL (6-20); Calcium 10.2 mg/dL (8.5-10.5); Carbon Dioxide 20 mmol/L (22-29); Chloride 98 mmol/L (98-107); Creatinine Clr Calc Pharmacy 152.2605; Globulin 2.8 g/dL (1.3-4.6); Glomerular Filtration Rate 116.9 mL/min (90-130); Glucose 147 mg/dL (65-115); Osmolality Calculated 285 mOsm/kg (285-295); Sodium 136 mmol/L (136-145); Total Bilirubin 0.6 mg/dL (0.15-1.2); Total Protein 7.9 g/dL (6.6-8.7)
[2022-10-08] MEDS: pantoprazole 40 mg SDV IVP (10:57)
[2022-10-08] MEDS: sodium chloride 0.9% 1,000 ML 999 ML IV ×2 (10:57→12:35)
[2022-10-08] MEDS: ondansetron 2 mg/ML SDV 2 mL 4 MG IVP (10:57)
[2022-10-08 11:00] VITALS: BP 149/90; PULSE 70; RESP 16; O2SAT 100
--- NOTE | 2022-10-08 11:06 | CT_ITS ---
WS: [id number] CT ABDOMEN AND PELVIS WITH CONTRAST HISTORY: RLQ abdominal pain with n/v TECHNIQUE: Imaging performed of the abdomen and pelvis with IV contrast. Single phase imaging of the abdomen. Coronal and sagittal reformats are submitted. All CT scans at [facility] use at [address] one of these dose optimization techniques: automated exposure control; mA and/or kV adjustment per patient size (includes targeted exams where dose is matched to clinical indication); or iterative re construction. IV CONTRAST: Omnipaque 350; 100 mL IV. Oral contrast: No DLP: 450.53 mGy.cm COMPARISON: 08/02/2022 Lower thorax: Lung bases are clear. Heart is normal size. For a slight wall thickening and edema with in the distal esophagus, slightly improved since the prior exam. Liver/biliary system: Normal size with no intrahepatic dilatation. Gallbladder: Normal. No gallstones or wall thickening. No pericholecystic fluid. Pancreas: Pancreas is difficult to visualize due to adjacent soft tissue structures. No inflammation. Spleen: Normal size spleen. No mass or infarct. Adrenal glands: Normal. Right kidney: Normal. Left kidney: Normal. Aorta: Normal. Lymphadenopathy: None. Free fluid: None. GI tract: Nondistended stomach resulting in wall thickening. No small bowel obstruction. No adjacent inflammation. Normal appendix. No colon obstruction. Abdominal wall: Unremarkable abdominal wall. No hernia. Pelvis: No free fluid or adenopathy within the pelvis. Bones: Prior intramedullary rodding RIGHT femur. CT/CT abdomen pelvis w con* [id number] IMPRESSION: 1. No acute abdominal or pelvic abnormalities are identified. 2. Very minimal but improved wall thickening of the distal esophagus. 3. Normal appendix. 4. No GI tract obstruction. 5. No free air or ascites.
[2022-10-08] MEDS: diphenhydrAMINE 50 mg/mL SDV 1mL IVP (11:19)
[2022-10-08] MEDS: iohexol 350 mg/mL 500 mL Btl (per mL) IV (11:39)
[2022-10-08 11:40] LABS: Reflex Lactate Order REFLEX LACTIC ORDERD
[2022-10-08 12:11] LABS: Add Urine Microscopic? NO; Charge for UA Resulting for Rev
--- NOTE | 2022-10-08 12:12 | W.ED.NAVMDI ---
Documented by User: JAMI Riley 10/08/22 19:06 HPI - Nausea/Vomiting/Diarrhea General: Chief complaint: Nausea/Vomiting/Diarrhea Stated complaint: n/v Time Seen by Provider: 10/08/22 09:27 History of Present Illness: Patient is a 27-year-old male who presents for nausea, vomiting. Patient reports that he was hospitalized a couple of months ago for similar complaints. He states that he has been vomiting blood. He reports that he was told at that time he had ulcers and since that time he has cut out spicy food energy drinks and most acidic stuff. He reports that he had been taking the medication at home. He reports that he had a flareup on Wednesday night after eating a chicken strip basket at [employer]. He states in the middle the night he started vomiting uncontrollably. He reports that as he vomits several times in a row that he will have reddish-orange vomit that he thinks has blood in it. He states that his girlfriend ate the same thing and she is not ill. He has been able to hold very little down for 2 days. He denies diarrhea. He reports right lower quadrant abdominal pain. He denies fever or chills. Associated nausea: Yes Associated symtoms: Reports nausea; Denies chest pain, dysuria, headache(s), palpitations or syncope Review of Systems Const: Denies: fever(s), chills or body aches Card: Denies: chest pain, palpitations, irregular heart rhythm, lightheadedness or syncope Resp: Denies: dyspnea, productive cough or non-productive cough GI: Reports: abdominal pain, nausea, vomiting and hematemesis; Denies: diarrhea or melena : Denies: flank pain, dysuria, urinary frequency, urinary urgency or urinary hesitancy Musc: Denies: neck pain or back pain Neuro: Denies: headache(s), numbness in extremities or weakness in extremities PFSH ED PFSH: Medical History No pertinent family history Surgical History No pertinent past surgical history Family History Denies family history of Diabetes Dementia Hypertension Social History Smoking and tobacco status: current some day smoker Alcohol intake: current Alcohol intake frequency: few times a week Physical Exam Const: COMMON NORMALS: no acute distress, patient oriented x3 and alert GENERAL APPEARANCE: cooperative ORIENTATION/CONSCIOUSNESS: Yes awake, Yes oriented to person, Yes oriented to place and Yes oriented to time Resp: COMMON NORMALS: normal respiratory effort, No retractions, No use of accessory muscles and clear to auscultation bilaterally EFFORT & INSPECTION: Yes symmetric chest movement AUSCULTATION: clear to auscultation bilaterally Cardio: COMMON NORMALS: regular rate, regular rhythm, S1 normal heart sound present and S2 normal heart sound present RATE: regular rate RHYTHM: regular rhythm HEART SOUNDS: S1 normal heart sound present and S2 normal heart sound present GI: COMMON NORMALS: Normal to inspection, nondistended, normoactive bowel sounds present and Soft to palpation INSPECTION: Yes normal to inspection AUSCULTATION: Yes normoactive bowel sounds PALPATION: Yes Soft to palpation, Yes Tenderness to palpation present (GI) Details: RLQ, No Guarding due to palpation present (GI) and No Rebound tenderness present : COMMON NORMALS: Yes no CVA tenderness BLADDER/KIDNEY EXAM: Yes no CVA tenderness Back/Pelvis: COMMON NORMALS: no CVA tenderness Neuro: COMMON NORMALS: patient oriented x3 SENSORIUM/ORIENTATION: Yes alert, Yes oriented to person, Yes oriented to place and Yes oriented to time Psych: COMMON NORMALS: cooperative Course Vital Signs: Vital signs: Vital Signs Temperature 99.0 F 10/08/22 08:46 Pulse Rate 71 10/08/22 14:07 Respiratory Rate 14 10/08/22 14:07 Blood Pressure 107/74 10/08/22 14:07 Pulse Oximetry 99 10/08/22 14:07 Oxygen Delivery Me thod 10/08/22 12:38 MDM - Nausea/Vomiting/Diarrhea Medical Decision Making This is a 27-year-old male in today for intractable nausea and vomiting since Wednesday. Patient has recently had several episodes of this and has been diagnosed with gastritis. Patient was actually hospitalized not that long ago for the same symptoms. He reports that after he vomited several times in a row he will have blood in his vomit. He denies any fever or chills. Labs today show a minimally elevated white blood cell count. Initially his pain was centered around his right lower quadrant abdomen without guarding. Negative obturator sign. Given the elevated white blood cell count and the vomiting I did go ahead and CT scan the patient to rule out appendicitis. Patient is allergic to shellfish so he was premedicated with Solu-Medrol and Benadryl prior to IV contrast dye. CT shows a normal appendix very minimal but improved wall thickening of the distal esophagus. Patient was rehydrated in the ER today with 2 L IV fluids and he was given Zofran for nausea. Patient was able to drink 2 cups of water and keep that down he has had no emesis in the ER today. He is urinating without issue. Patient is discharged to home in stable condition with a referral to GI for possible upper endoscopy as they deem necessary. Referral was made to case management to help facilitate the referral to GI. Advised patient of conservative treatment at home I recommend liquid diet for the next 24 hours and slowly advancing to a bland diet. Patient verbalizes understanding. Advised him to follow-up with primary care provider. Return to the ER as needed for new or worsening symptoms including, but not limited to, worsening abdominal pain, development of fever, inability to keep oral liquids down despite antinausea medication. Lab Data 10/08/22 09:44 10/08/22 09:44 Radiology Impressions Abdomen/Pelvis CT 10/08/22 11:06 IMPRESSION: 1. No acute abdominal or pelvic abnormalities are identified. 2. Very minimal but improved wall thickening of the distal esophagus. 3. Normal appendix. 4. No GI tract obstruction. 5. No free air or ascites. Laboratory Results WBC 11.6 10^3/uL (4.0-10.0) H 10/08/22 09:44 RBC 5.63 10^6/uL (4.1-5.3) H 10/08/22 09:44 Hgb 16.2 g/dL (11.7-16.6) 10/08/22 09:44 Hct 48.3 % (42.0-52.0) 10/08/22 09:44 MCV 85.8 fl (80-94) 10/08/22 09:44 MCH 28.8 pg (28.0-34.0) 10/08/22 09:44 MCHC 33.5 g/dL (30.0-36.0) 10/08/22 09:44 RDW 12.2 % (12.1-15.1) 10/08/22 09:44 Plt Count 333 10^3/cmm (130-400) 10/08/22 09:44 MPV 9.5 fL (7.4-10.4) 10/08/22 09:44 Neut % (Auto) 84.1 % 10/08/22 09:44 Lymph % (Auto) 9.4 % 10/08/22 09:44 [place] % (Auto) 6.0 % 10/08/22 09:44 Eos % (Auto) 0.1 % 10/08/22 09:44 Baso % (Auto) 0.1 % 10/08/22 09:44 Neut # (Auto) 9.73 10^3/uL (1.8-7.7) H 10/08/22 09:44 Lymph # (Auto) 1.1 10^3/uL (0.8-4.8) 10/08/22 09:44 [place] # (Auto) 0.7 10^3/uL (0.2-0.9) 10/08/22 09:44 Eos # (Auto) 0.0 10^3/uL (0.0-0.8) 10/08/22 09:44 Baso # (Auto) 0.0 10^3/uL (0.0-0.1) 10/08/22 09:44 Nucleated RBC % (auto) 0 % 10/08/22 09:44 Nucleated RBCs # 0.0 /100WBC 10/08/22 09:44 Sodium 136 mmol/L (136-145) 10/08/22 09:44 Potassium 4.0 mmol/L (3.5-5.1) 10/08/22 09:44 Chloride 98 mmol/L (98-107) 10/08/22 09:44 Carbon Dioxide 20 mmol/L (22-29) L 10/08/22 09:44 Anion Gap 22.0 (5-19) H 10/08/22 09:44 BUN 14 mg/dL (6-20) 10/08/22 09:44 Creatinine 0.8 mg/dL (0.7-1.2) 10/08/22 09:44 GFR Calculation 116.9 mL/min (90-130) 10/08/22 09:44 Glucose 147 mg/dL (65-115) H 10/08/22 09:44 Calculated Osmolality 285 mOsm/kg (285-295) 10/08/22 09:44 Lactic Acid 2.2 mmol/L (0.5-2.2) 10/08/22 09:44 Lactic Acid (Sepsis) 1.9 mmol/L (0.5-2.2) 10/08/22 11:52 Calcium 10.2 mg/dL (8.5-10.5) 10/08/22 09:44 Total Bilirubin 0.6 mg/dL (0.15-1.2) 10/08/22 09:44 AST 19 U/L (0-40) 10/08/22 09:44 ALT 19 U/L (0-41) 10/08/22 09:44 Alkaline Phosphatase 63 U/L (40-130) 10/08/22 09:44 Total Protein 7.9 g/dL (6.6-8.7) 10/08/22 09:44 Albumin 5.1 g/dL (3.5-5.2) 10/08/22 09:44 Globulin 2.8 g/dL (1.3-4.6) 10/08/22 09:44 Urine Color Dark yellow (Yellow) 10/08/22 11:59 Urine Appearance Clear (CLEAR) 10/08/22 11:59 Urine pH 7 (5-7) 10/08/22 11:59 Ur Specific Rogers 1.005 (1.005-1.030) 10/08/22 11:59 Urine Protein Neg (Negative) 10/08/22 11:59 Urine Glucose (UA) Norm (Normal) 10/08/22 11:59 Urine Ketones 3+ (Negative) H 10/08/22 11:59 Urine Blood Neg (Negative) 10/08/22 11:59 Urine Nitrate Negative (Negative) 10/08/22 11:59 Urine Bilirubin Neg (Negative) 10/08/22 11:59 Urine Urobilinogen Neg mg/dL (Negative) 10/08/22 11:59 Ur Leukocyte Esterase Negative (Negative) 10/08/22 11:59 Discharge Plan Discharge Patient Disposition: Home Clinical Impression: Esophagitis with gastritis, Intractable nausea and vomiting, Dehydration Condition: Stable Prescriptions: No Action ondansetron 4 mg tablet,disintegrating 4 mg PO Q6H PRN (Reason: nausea and vomiting) Qty: 10 2RF pantoprazole [Protonix] [address] for susp in packet 40 mg PO BID 14 Days Qty: 28 1RF Discharge Orders: Discharge ED (Routine); Ordered 10/08/22 Ordered By: Jyothi Roy Discharge Diet: As Directed Discharge Activity: Increase activity as tolerated Patient Instructions: Gastritis (ED), Diet for Stomach Ulcers and Gastritis (ED) Activity Restrictions/Additional Instructions: I recommend a bland diet without caffeine, nicotine, chocolate, red sauce, fried fatty foods. I referred you to GI for evaluation and possible upper endoscopy procedure. I recommend diet consisting of mostly liquids for the next 48 hours and then you can advance to a bland diet as tolerated. It is most important that you are able to stay hydrated. Utilize Zofran and Reglan at home as needed for nausea and vomiting. Return to the ER as needed for any new or worsening symptoms including, but not limited to, inability to keep oral liquids down despite nausea medication, fever, increasing abdominal pain, increasing blood noted in your vomit. 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 [employer] Fwd Documented by User: Georges Galloway DO 10/09/22 06:12 HPI - Nausea/Vomiting/Diarrhea General: Chief complaint: Nausea/Vomiting/Diarrhea Stated complaint: n/v Time Seen by Provider: 10/08/22 09:27 [facility] ED PFSH: Medical History No pertinent family history Surgical History No pertinent past surgical history Family History Denies family history of Diabetes Dementia Hypertension Social History Smoking and tobacco status: current some day smoker Alcohol intake: current Alcohol intake frequency: few times a week Course Vital Signs: Vital signs: Vital Signs Temperature 99.0 F 10/08/22 08:46 Pulse Rate 71 10/08/22 14:07 Respiratory Rate 14 10/08/22 14:07 Blood Pressure 107/74 10/08/22 14:07 Pulse Oximetry 99 10/08/22 14:07 Oxygen Delivery Me thod 10/08/22 12:38 MDM - Nausea/Vomiting/Diarrhea Medical Decision Making This is a 27-year-old male in today for intractable nausea and vomiting since Wednesday. Patient has recently had several episodes of this and has been diagnosed with gastritis. Patient was actually hospitalized not that long ago for the same symptoms. He reports that after he vomited several times in a row he will have blood in his vomit. He denies any fever or chills. Labs today show a minimally elevated white blood cell count. Initially his pain was centered around his right lower quadrant abdomen without guarding. Negative obturator sign. Given the elevated white blood cell count and the vomiting I did go ahead and CT scan the patient to rule out appendicitis. Patient is allergic to shellfish so he was premedicated with Solu-Medrol and Benadryl prior to IV contrast dye. CT shows a normal appendix very minimal but improved wall thickening of the distal esophagus. Patient was rehydrated in the ER today with 2 L IV fluids and he was given Zofran for nausea. Patient was able to drink 2 cups of water and keep that down he has had no emesis in the ER today. He is urinating without issue. Patient is discharged to home in stable condition with a referral to GI for possible upper endoscopy as they deem necessary. Referral was made to case management to help facilitate the referral to GI. Advised patient of conservative treatment at home I recommend liquid diet for the next 24 hours and slowly advancing to a bland diet. Patient verbalizes understanding. Advised him to follow-up with primary care provider. Return to the ER as needed for new or worsening symptoms including, but not limited to, worsening abdominal pain, development of fever, inability to keep oral liquids down despite antinausea medication. Chart reviewed and patient discussed with midlevel. Agree with assessment and plan. Lab Data 10/08/22 09:44 10/08/22 09:44 Radiology Impressions Abdomen/Pelvis CT 10/08/22 11:06 IMPRESSION: 1. No acute abdominal or pelvic abnormalities are identified. 2. Very minimal but improved wall thickening of the distal esophagus. 3. Normal appendix. 4. No GI tract obstruction. 5. No free air or ascites. Laboratory Results WBC 11.6 10^3/uL (4.0-10.0) H 10/08/22 09:44 RBC 5.63 10^6/uL (4.1-5.3) H 10/08/22 09:44 Hgb 16.2 g/dL (11.7-16.6) 10/08/22 09:44 Hct 48.3 % (42.0-52.0) 10/08/22 09:44 MCV 85.8 fl (80-94) 10/08/22 09:44 MCH 28.8 pg (28.0-34.0) 10/08/22 09:44 MCHC 33.5 g/dL (30.0-36.0) 10/08/22 09:44 RDW 12.2 % (12.1-15.1) 10/08/22 09:44 Plt Count 333 10^3/cmm (130-400) 10/08/22 09:44 MPV 9.5 fL (7.4-10.4) 10/08/22 09:44 Neut % (Auto) 84.1 % 10/08/22 09:44 Lymph % (Auto) 9.4 % 10/08/22 09:44 [place] % (Auto) 6.0 % 10/08/22 09:44 Eos % (Auto) 0.1 % 10/08/22 09:44 Baso % (Auto) 0.1 % 10/08/22 09:44 Neut # (Auto) 9.73 10^3/uL (1.8-7.7) H 10/08/22 09:44 Lymph # (Auto) 1.1 10^3/uL (0.8-4.8) 10/08/22 09:44 [place] # (Auto) 0.7 10^3/uL (0.2-0.9) 10/08/22 09:44 Eos # (Auto) 0.0 10^3/uL (0.0-0.8) 10/08/22 09:44 Baso # (Auto) 0.0 10^3/uL (0.0-0.1) 10/08/22 09:44 Nucleated RBC % (auto) 0 % 10/08/22 09:44 Nucleated RBCs # 0.0 /100WBC 10/08/22 09:44 Sodium 136 mmol/L (136-145) 10/08/22 09:44 Potassium 4.0 mmol/L (3.5-5.1) 10/08/22 09:44 Chloride 98 mmol/L (98-107) 10/08/22 09:44 Carbon Dioxide 20 mmol/L (22-29) L 10/08/22 09:44 Anion Gap 22.0 (5-19) H 10/08/22 09:44 BUN 14 mg/dL (6-20) 10/08/22 09:44 Creatinine 0.8 mg/dL (0.7-1.2) 10/08/22 09:44 GFR Calculation 116.9 mL/min (90-130) 10/08/22 09:44 Glucose 147 mg/dL (65-115) H 10/08/22 09:44 Calculated Osmolality 285 mOsm/kg (285-295) 10/08/22 09:44 Lactic Acid 2.2 mmol/L (0.5-2.2) 10/08/22 09:44 Lactic Acid (Sepsis) 1.9 mmol/L (0.5-2.2) 10/08/22 11:52 Calcium 10.2 mg/dL (8.5-10.5) 10/08/22 09:44 Total Bilirubin 0.6 mg/dL (0.15-1.2) 10/08/22 09:44 AST 19 U/L (0-40) 10/08/22 09:44 ALT 19 U/L (0-41) 10/08/22 09:44 Alkaline Phosphatase 63 U/L (40-130) 10/08/22 09:44 Total Protein 7.9 g/dL (6.6-8.7) 10/08/22 09:44 Albumin 5.1 g/dL (3.5-5.2) 10/08/22 09:44 Globulin 2.8 g/dL (1.3-4.6) 10/08/22 09:44 Urine Color Dark yellow (Yellow) 10/08/22 11:59 Urine Appearance Clear (CLEAR) 10/08/22 11:59 Urine pH 7 (5-7) 10/08/22 11:59 Ur Specific Rogers 1.005 (1.005-1.030) 10/08/22 11:59 Urine Protein Neg (Negative) 10/08/22 11:59 Urine Glucose (UA) Norm (Normal) 10/08/22 11:59 Urine Ketones 3+ (Negative) H 10/08/22 11:59 Urine Blood Neg (Negative) 10/08/22 11:59 Urine Nitrate Negative (Negative) 10/08/22 11:59 Urine Bilirubin Neg (Negative) 10/08/22 11:59 Urine Urobilinogen Neg mg/dL (Negative) 10/08/22 11:59 Ur Leukocyte Esterase Negative (Negative) 10/08/22 11:59 Discharge Plan Discharge Patient Disposition: Home Clinical Impression: Esophagitis with gastritis, Intractable nausea and vomiting, Dehydration Condition: Stable Prescriptions: No Action ondansetron 4 mg tablet,disintegrating 4 mg PO Q6H PRN (Reason: nausea and vomiting) Qty: 10 2RF pantoprazole [Protonix] [address] for susp in packet 40 mg PO BID 14 Days Qty: 28 1RF Discharge Orders: Discharge ED (Routine); Ordered 10/08/22 Ordered By: Jyothi Roy Discharge Diet: As Directed Discharge Activity: Increase activity as tolerated Patient Instructions: Gastritis (ED), Diet for Stomach Ulcers and Gastritis (ED) Activity Restrictions/Additional Instructions: I recommend a bland diet without caffeine, nicotine, chocolate, red sauce, fried fatty foods. I referred you to GI for evaluation and possible upper endoscopy procedure. I recommend diet consisting of mostly liquids for the next 48 hours and then you can advance to a bland diet as tolerated. It is most important that you are able to stay hydrated. Utilize Zofran and Reglan at home as needed for nausea and vomiting. Return to the ER as needed for any new or worsening symptoms including, but not limited to, inability to keep oral liquids down despite nausea medication, fever, increasing abdominal pain, increasing blood noted in your vomit. 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
[2022-10-08 12:13] LABS: Bilirubin Urine Neg (Negative); Blood Urine Neg (Negative); Glucose Urine UA Norm (Normal); Ketones Urine 3+ (Negative); Leukocyte Esterase Urine Negative (Negative); Nitrate Urine Negative (Negative); Protein Urine Neg (Negative); Specific Gravity, Urine 1.005 (1.005-1.030); Urine Appearance Clear (CLEAR); Urine Color Dark Yellow (Yellow); Urobilinogen Urine Neg (Negative); pH Urine 7 (5-7)
[2022-10-08 12:23] LABS: Lactic Acid level (Lactate) 1.9 mmol/L (0.5-2.2)
[2022-10-08 12:38] VITALS: BP 129/69; PULSE 69; RESP 14; O2SAT 99
[2022-10-08 14:07] VITALS: BP 107/74; PULSE 71; RESP 14; O2SAT 99
--- NOTE | 2022-10-08 14:10 | DCPLANNER ---
Addendum entered by Flory Puentes 10/29/22 08:01: financial reporting manager received the following message from the general surgery clinic regarding follow up appointment: Patient has a $[phone] balance & no insurance listed... I am mailing a letter stating he needs to contact FA regarding this and a letter with our offices contact info. Original Note: financial reporting manager had message to schedule a follow up appointment for patient with general surgery. financial reporting manager sent patients information to the front office staff at general surgery. Patients information will be printed and reviewed. Clinic will call patient with appointment information.
== END 2022-10-08 14:07 | disposition home or self-care (01) ==
PROVIDERS: Family Medicine; Emergency Provider Nurse Practitioner Family
DX: K20.90 Esophagitis, unspecified without bleeding (principal); K29.70 Gastritis, unspecified, without bleeding; E86.0 Dehydration; F17.210 Nicotine dependence, cigarettes, uncomplicated
CPT/HCPCS: 36415; 74177; 80053; 81003; 83605; 85025; 93005; 96361; 96374; 96375; 99285; C9113; J1200; J2405; J2920; J7030; Q9967

== ENCOUNTER 2022-10-09 07:07 | Emergency (ER) | payer SELFPAY ==
[2022-10-09 07:27] VITALS: BP 148/109; PULSE 70; RESP 20; TEMP 36.9; O2SAT 100; BMI 23.7
--- NOTE | 2022-10-09 07:44 | W.ED.NAVMDI ---
HPI - Nausea/Vomiting/Diarrhea General: Chief complaint: Nausea/Vomiting/Diarrhea Stated complaint: still nauseas Time Seen by Provider: 10/09/22 07:08 Source: patient Mode of arrival: ambulatory Limitations: no limitations History of Present Illness: Patient is a 27-year-old male who presents to ED today with a complaint of diffuse abdominal pain, nausea, vomiting. Patient states symptoms started approximately 3 days ago. He was seen in our ED yesterday for similar symptoms and had extensive work-up including labs and CT imaging. Today hermosillo patient's 6th ED visit over the past 8 months for identical symptoms. He required hospitalization once for intractable nausea and vomiting. Patient has had 4 CT abdomen and pelvis scans over the past 8 months all of which showing nonspecific gastritis, esophagitis, and/or enteritis. He tells me providers have diagnosed him with ulcers and have set him up with GI for an endoscopy. After speaking to patient he tells me he is a chronic marijuana user. He uses several times weekly and has been doing so since the seventh grade . He tells me the only thing that makes his nausea and vomiting better or warm showers/baths. MD elicited complaint: nausea, vomiting and abdominal pain Onset (ago): day(s) Associated nausea: Yes Associated abdominal pain: Yes Location of pain: Diffuse Radiation: diffuse Pain consistency: constant Quality: cramping and other (squeezing) Exacerbating factors: eating (drinking) Relieving factors: hot shower/bath Context: marijuana use Associated symtoms: Reports nausea; Denies change in vision, chest pain, dizziness, dysuria, fatigue, headache(s), malaise, palpitations or syncope Treatment prior to arrival: other (prescription antiemetics) Review of Systems Const: Denies: fever(s), chills, body aches, fatigue or malaise Eyes: Denies: change in vision, blurry vision, photophobia, floaters or seeing flashes Card: Denies: chest pain, palpitations, irregular heart rhythm, lightheadedness, syncope or dyspnea on exertion Resp: Denies: dyspnea, productive cough or pain on inspiration GI: Reports: abdominal pain, nausea, vomiting and hematemesis; Denies: heartburn, diarrhea, pain on defecation, hematochezia or melena : Denies: flank pain, difficulty urinating or dysuria Musc: Denies: neck pain, back pain, extremity pain or joint pain Skin/Breast: Denies: rash Neuro: Denies: headache(s), numbness in extremities, weakness in extremities, sensory changes or dizziness PFSH ED PFSH: Medical History No pertinent family history Surgical History No pertinent past surgical history Family History Denies family history of Diabetes Dementia Hypertension Social History Smoking and tobacco status: current some day smoker Alcohol intake: current Alcohol intake frequency: few times a week Substance/Drug Use: current Substance/Drug use frequency: few times a week Substance/Drug use type: Marijuana Physical Exam Const: COMMON NORMALS: average body habitus, patient oriented x3, no limitations, healthy appearing, alert and well nourished GENERAL APPEARANCE: in distress (uncomfortable secondary to pain) and anxious ORIENTATION/CONSCIOUSNESS: Yes awake, Yes oriented to person, Yes oriented to place and Yes oriented to time HENMT: COMMON NORMALS: normocephalic and atraumatic HEAD & SCALP: normal to inspection, normocephalic and atraumatic Resp: COMMON NORMALS: normal respiratory effort and clear to auscultation bilaterally AUSCULTATION: clear to auscultation bilaterally Cardio: COMMON NORMALS: regular rate and regular rhythm RATE: regular rate RHYTHM: regular rhythm GI: COMMON NORMALS: Normal to inspection, nondistended, normoactive bowel sounds present, Soft to palpation, No hepatosplenomegaly present and no masses INSPECTION: Yes normal to inspection AUSCULTATION: Yes normoactive bowel sounds PALPATION: Yes Soft to palpation, Yes Tenderness to palpation present (GI) (diffusely ), No Guarding due to palpation present (GI), No Rigid due to palpation and Yes No hepatosplenomegaly present : COMMON NORMALS: Yes no CVA tenderness BLADDER/KIDNEY EXAM: Yes no CVA tenderness Back/Pelvis: COMMON NORMALS: no CVA tenderness Extremity: COMMON NORMALS: normal to inspection GENERAL: Yes normal exam except as noted Neuro: BERNY COMA SCALE: document GCS findings [place] coma scale eye opening: Spontaneous Berny coma scale verbal response: Orientated Berny coma scale motor response: Obey commands [place] coma scale total score: 15 COMMON NORMALS: patient oriented x3, moves all extremities, no focal motor deficits, no sensory deficits noted and gait normal SENSORIUM/ORIENTATION: Yes alert, Yes oriented to person, Yes oriented to place and Yes oriented to time Skin: COMMON NORMALS: no rashes or lesions noted GENERAL SKIN EXAM: no rashes or lesions noted Course Vital Signs: Vital signs: Vital Signs Temperature 98.4 F 10/09/22 07:27 Pulse Rate 88 10/09/22 08:08 Respiratory Rate 17 10/09/22 08:08 Blood Pressure 127/71 10/09/22 08:08 Pulse Oximetry 98 10/09/22 08:08 Oxygen Delivery Me thod 10/09/22 08:08 MDM - Nausea/Vomiting/Diarrhea Medical Decision Making Patient has classic cyclic vomiting syndrome related to his cannabis use. He has been using for over a decade now. He states the only thing that improves his nausea and vomiting are warm showers/baths. As previously stated in HPI this is patient's 6th ED visit for identical symptoms. He has underwent four CT abdomen and pelvis scans over the past 8 months in relation to these symptoms. He was given antiemetics/ativan/haldol here with good relief of his symptoms. He was able to eat and drink here. Vital signs are stable. Blood work is unremarkable. He is mildly hypokalemic with a potassium of 3.3. He was given oral replacement for this. He can go ahead and continue current plan to follow-up with GI for evaluation and need for endoscopy. Marijuana cessation discussed but ultimately this a personal choice patient needs to make after outweighing risks/benefits. Return to ED precautions given. Lab Data 10/09/22 08:02 10/09/22 08:02 Laboratory Results WBC 12.7 10^3/uL (4.0-10.0) H 10/09/22 08:02 RBC 5.19 10^6/uL (4.1-5.3) 10/09/22 08:02 Hgb 15.0 g/dL (11.7-16.6) 10/09/22 08:02 Hct 43.7 % (42.0-52.0) 10/09/22 08:02 MCV 84.2 fl (80-94) 10/09/22 08:02 MCH 28.9 pg (28.0-34.0) 10/09/22 08:02 MCHC 34.3 g/dL (30.0-36.0) 10/09/22 08:02 RDW 12.0 % (12.1-15.1) L 10/09/22 08:02 Plt Count 294 10^3/cmm (130-400) 10/09/22 08:02 MPV 9.5 fL (7.4-10.4) 10/09/22 08:02 Neut % (Auto) 72.4 % 10/09/22 08:02 Lymph % (Auto) 14.9 % 10/09/22 08:02 [place] % (Auto) 11.6 % 10/09/22 08:02 Eos % (Auto) 0.6 % 10/09/22 08:02 Baso % (Auto) 0.2 % 10/09/22 08:02 Neut # (Auto) 9.16 10^3/uL (1.8-7.7) H 10/09/22 08:02 Lymph # (Auto) 1.9 10^3/uL (0.8-4.8) 10/09/22 08:02 [place] # (Auto) 1.5 10^3/uL (0.2-0.9) H 10/09/22 08:02 Eos # (Auto) 0.1 10^3/uL (0.0-0.8) 10/09/22 08:02 Baso # (Auto) 0.0 10^3/uL (0.0-0.1) 10/09/22 08:02 Nucleated RBC % (auto) 0 % 10/09/22 08:02 Nucleated RBCs # 0.0 /100WBC 10/09/22 08:02 Sodium 139 mmol/L (136-145) 10/09/22 08:02 Potassium 3.3 mmol/L (3.5-5.1) L 10/09/22 08:02 Chloride 100 mmol/L (98-107) 10/09/22 08:02 Carbon Dioxide 24 mmol/L (22-29) 10/09/22 08:02 Anion Gap 18.3 (5-19) 10/09/22 08:02 BUN 11 mg/dL (6-20) 10/09/22 08:02 Creatinine 0.7 mg/dL (0.7-1.2) 10/09/22 08:02 GFR Calculation 136.3 mL/min (90-130) H 10/09/22 08:02 Glucose 122 mg/dL (65-115) H 10/09/22 08:02 Calculated Osmolality 289 mOsm/kg (285-295) 10/09/22 08:02 Calcium 9.4 mg/dL (8.5-10.5) 10/09/22 08:02 Total Bilirubin 0.7 mg/dL (0.15-1.2) 10/09/22 08:02 AST 20 U/L (0-40) 10/09/22 08:02 ALT 17 U/L (0-41) 10/09/22 08:02 Alkaline Phosphatase 54 U/L (40-130) 10/09/22 08:02 Total Protein 7.2 g/dL (6.6-8.7) 10/09/22 08:02 Albumin 4.8 g/dL (3.5-5.2) 10/09/22 08:02 Globulin 2.4 g/dL (1.3-4.6) 10/09/22 08:02 Lipase 41 U/L (13-60) 10/09/22 08:02 Urine Color Yellow (Yellow) 10/09/22 08:02 Urine Appearance Clear (CLEAR) 10/09/22 08:02 Urine pH 7 (5-7) 10/09/22 08:02 Ur Specific [place] 1.015 (1.005-1.030) 10/09/22 08:02 Urine Protein Neg (Negative) 10/09/22 08:02 Urine Glucose (UA) Norm (Normal) 10/09/22 08:02 Urine Ketones 2+ (Negative) H 10/09/22 08:02 Urine Blood Neg (Negative) 10/09/22 08:02 Urine Nitrate Negative (Negative) 10/09/22 08:02 Urine Bilirubin Neg (Negative) 10/09/22 08:02 Urine Urobilinogen Norm mg/dL (Negative) 10/09/22 08:02 Ur Leukocyte Esterase Negative (Negative) 10/09/22 08:02 Discharge Plan Discharge Patient Disposition: Home Clinical Impression: Cannabinoid hyperemesis syndrome Condition: Stable Prescriptions: New promethazine 50 mg tablet 50 mg PO TID PRN (Reason: nausea/vomiting) Qty: 20 0RF No Action ondansetron 4 mg tablet,disintegrating 4 mg PO Q6H PRN (Reason: nausea and vomiting) Qty: 10 2RF pantoprazole [Protonix] [address] for susp in packet 40 mg PO BID 14 Days Qty: 28 1RF sucralfate 1 gram tablet 1 g PO BID Discharge Orders: Discharge ED (Routine); Ordered 10/09/22 Ordered By: Giana Liu Patient Instructions: Acute Nausea and Vomiting (DC), Cannabis Use Disorder (ED) Coding Level of Care Code ED Brim Ironer Hand for Jose Patel
[2022-10-09] MEDS: sodium chloride 0.9% 1,000 ML 999 ML IV (07:54)
[2022-10-09] MEDS: ondansetron 2 mg/ML SDV 2 mL 4 MG IVP (07:57)
[2022-10-09] MEDS: LORazepam 2 mg/mL INJ 1 mL 1 MG IVP (07:58)
[2022-10-09] MEDS: haloperidol inj 5 mg/mL INJ 1 mL IVP (07:58)
[2022-10-09 08:08] VITALS: BP 127/71; PULSE 88; RESP 17; O2SAT 98
[2022-10-09 08:14] LABS: Basophils % 0.2 %; Eosinophils # 0.1 10^3/uL (0.0-0.8); Eosinophils % 0.6 %; Hematocrit 43.7 % (42.0-52.0); Lymphocytes # 1.9 10^3/uL (0.8-4.8); Lymphocytes % 14.9 %; Mean Corpuscular HGB Conc 34.3 g/dL (30.0-36.0); Mean Corpuscular Hemoglobin 28.9 pg (28.0-34.0); Mean Corpuscular Volume 84.2 fl (80-94); Mean Platelet Volume 9.5 fL (7.4-10.4); Monocytes # 1.5 10^3/uL (0.2-0.9); Monocytes % 11.6 %; Neutrophils # 9.16 10^3/uL (1.8-7.7); Neutrophils % 72.4 %; Nucleated Red Blood Cells % 0 %; Platelet Count 294 10^3/cmm (130-400); Red Blood Count 5.19 10^6/uL (4.1-5.3); White Blood Count 12.7 10^3/uL (4.0-10.0)
[2022-10-09 08:15] LABS: Add Urine Microscopic? NO; Charge for UA Resulting for Rev
[2022-10-09 08:21] LABS: Bilirubin Urine Neg (Negative); Blood Urine Neg (Negative); Glucose Urine UA Norm (Normal); Ketones Urine 2+ (Negative); Leukocyte Esterase Urine Negative (Negative); Nitrate Urine Negative (Negative); Protein Urine Neg (Negative); Specific Gravity, Urine 1.015 (1.005-1.030); Urine Appearance Clear (CLEAR); Urine Color Yellow (Yellow); Urobilinogen Urine Norm (Negative); pH Urine 7 (5-7)
[2022-10-09 08:32] LABS: Alanine Aminotransferase 17 U/L (0-41); Albumin Level 4.8 g/dL (3.5-5.2); Alkaline Phosphatase 54 U/L (40-130); Anion Gap 18.3 (5-19); Aspartate Amino Transferase 20 U/L (0-40); Blood Urea Nitrogen 11 mg/dL (6-20); Calcium 9.4 mg/dL (8.5-10.5); Carbon Dioxide 24 mmol/L (22-29); Chloride 100 mmol/L (98-107); Globulin 2.4 g/dL (1.3-4.6); Glomerular Filtration Rate 136.3 mL/min (90-130); Glucose 122 mg/dL (65-115); Lipase 41 U/L (13-60); Osmolality Calculated 289 mOsm/kg (285-295); Potassium 3.3 mmol/L (3.5-5.1); Sodium 139 mmol/L (136-145); Total Bilirubin 0.7 mg/dL (0.15-1.2); Total Protein 7.2 g/dL (6.6-8.7)
[2022-10-09 08:56] LABS: Slide Review Slide Review Perform
[2022-10-09] MEDS: potassium chloride ER 20 mEq Tablet 40 MEQ PO (09:12)
[2022-10-09 10:18] VITALS: BP 127/71; PULSE 88; RESP 17; O2SAT 98
== END 2022-10-09 10:20 | disposition home or self-care (01) ==
PROVIDERS: Emergency Provider Physician Assistant
DX: R11.10 Vomiting, unspecified (principal); F12.90 Cannabis use, unspecified, uncomplicated; F17.210 Nicotine dependence, cigarettes, uncomplicated
CPT/HCPCS: 80053; 81003; 83690; 85025; 96361; 96374; 96375; 99284; J1630; J2060; J2405; J7030

== ENCOUNTER 2022-11-30 09:52 | Emergency (ER) | payer SELFPAY ==
[2022-11-30 09:56] VITALS: BP 102/63; PULSE 65; RESP 16; TEMP 36.5; O2SAT 95
--- NOTE | 2022-11-30 10:09 | XR_ITS ---
WS: [id number] EXAMINATION: XR foot RT 2V [id number] REASON FOR EXAM: injury to 5th toe COMPARISON: None available. ORDER DATE: 11/30/2022 10:22 AM TECHNIQUE: 3 views of the right foot were obtained. X-RAY FINDINGS: There are no fractures or dislocations. No focal abnormal soft tissue swelling. Joint spaces are pres erved. There is malunion of an old fracture of the proximal phalanx of fifth toe with about 90 degree angular deformity. XR/XR foot RT 2V 41804 IMPRESSION: Old fracture of the distal fifth proximal phalanx as noted
--- NOTE | 2022-11-30 10:35 | W.ED.EXTPRO ---
HPI - Extremity Problem General: Chief complaint: Extremity Injury, Lower Stated complaint: Right foot injury Time Seen by Provider: 11/30/22 10:09 History of Present Illness: Patient is a 27-year-old male comes to the ED with right fifth toe injury. Injury occurred just prior to arrival. Patient says he was running in the house after one of his dogs and he excellently kicked the door frame injuring right fifth toe. Toe appeared dislocated and was pointing away from from the other toes. He rates his pain as moderate and says it is a 5 out of 10. This pain gets worse if he does any weightbearing. Denies any other injury or trauma. He has not taken anything for pain before coming to the ED. Associated symptoms: Deny chest pain, fever(s) or rash Review of Systems Const: Denies: fever(s), chills or fatigue Eyes: Denies: change in vision or eye discomfort ENMT: Denies: throat pain, odynophagia, nasal discharge or nasal congestion Card: Denies: chest pain, palpitations, edema, swelling of feet/ankles, dyspnea on exertion or orthopnea Resp: Denies: dyspnea, productive cough or non-productive cough GI: Denies: abdominal pain, nausea, vomiting, diarrhea, constipation or hematochezia : Denies: flank pain, difficulty urinating, dysuria or hematuria Musc: Reports: extremity pain (Right fifth toe) and deformity (Dislocated right fifth toe); Denies: neck pain, back pain or extremity swelling Skin/Breast: Denies: rash or new lesions Neuro: Denies: headache(s), numbness in extremities or weakness in extremities [facility] PFSH: Medical History No pertinent family history Surgical History No pertinent past surgical history Family History Denies family history of Diabetes Dementia Hypertension Social History Smoking and tobacco status: current some day smoker Alcohol intake: current Alcohol intake frequency: few times a week Physical Exam Const: COMMON NORMALS: no acute distress, patient oriented x3 and alert HENMT: COMMON NORMALS: normocephalic HEAD & SCALP: normocephalic MOUTH: Normal oral and palatal mucosa present THROAT: posterior oropharynx normal and uvula midline Neck/C-Spine: COMMON NORMALS: supple GENERAL: Yes normal visual inspection Resp: COMMON NORMALS: normal respiratory effort, No retractions, No use of accessory muscles and clear to auscultation bilaterally AUSCULTATION: clear to auscultation bilaterally Cardio: COMMON NORMALS: regular rate, regular rhythm, S1 normal heart sound present, S2 normal heart sound present, No gallops present (Cardio), No clicks present (Cardio), No murmurs present (Cardio) and Peripheral pulses 2+ throughout RATE: regular rate RHYTHM: regular rhythm HEART SOUNDS: S1 normal heart sound present and S2 normal heart sound present PERIPHERAL PULSES: Peripheral pulses 2+ throughout GI: COMMON NORMALS: Normal to inspection, nondistended, normoactive bowel sounds present, Soft to palpation, non-tender and no masses PALPATION: Yes Soft to palpation : COMMON NORMALS: Yes no CVA tenderness BLADDER/KIDNEY EXAM: Yes no CVA tenderness Back/Pelvis: COMMON NORMALS: no CVA tenderness Extremity: NARRATIVE EXTREMITY EXAM: Right fifth toe?appears dislocated and is angulated laterally. Tender to palpation. Neurovascular intact. Neuro: COMMON NORMALS: patient oriented x3 SENSORIUM/ORIENTATION: Yes alert GAIT: Yes Normal gait present Skin: GENERAL SKIN EXAM: dry skin Procedures Orthopedic Joint Reduction Joint #1: Time Out Performed: Yes Side: right Joint Reduction Location: toe Analgesia: none Technique used: direct manipulation Post-reduction neuro exam: intact Post-reduction vascular: intact Post Reduction X-Ray Obtained: Yes Post Reduction X-Ray Results: reduced Splint Applied: Yes (Fifth and fourth toes enid tape) Patient Tolerated Procedure: well Course Vital Signs: Vital signs: Vital Signs Temperature 97.7 F 11/30/22 09:56 Pulse Rate 65 11/30/22 09:56 Respiratory Rate 16 11/30/22 09:56 Blood Pressure 102/63 11/30/22 09:56 Pulse Oximetry 95 11/30/22 09:56 Oxygen Delivery Me thod 11/30/22 09:56 MDM - Extremity (Nontraumatic) Medical Decision Making Patient is a 27-year-old male comes to the ED with right fifth toe injury. Injury occurred just prior to arrival. Patient says he was running in the house after one of his dogs and he excellently kicked the door frame injuring right fifth toe. Toe appeared dislocated and was pointing away from from the other toes. He rates his pain as moderate and says it is a 5 out of 10. This pain gets worse if he does any weightbearing. Denies any other injury or trauma. He has not taken anything for pain before coming to the ED. vitals are stable. Right fifth toe?appears dislocated and is angulated laterally. Tender to palpation. Neurovascular intact. X-ray of right foot showed possible subacute fracture with dislocation of fifth toe. Dislocation fracture was reduced with a manual manipulation. Patient was given a dose of [place] to help with the pain. X-ray was done after reduction and showed improved alignment. [place] tape was applied on toe. Patient was stable for discharge home and diagnosed with closed fracture and dislocation of fifth toe right foot. I placed order with case management for patient referred to diesel engine engineer for follow-up. He was discharged home with crutches and a prescription for ibuprofen 800 mg. Patient understood agree with plan. Lab Data Radiology Impressions Foot X-Ray 11/30/22 10:48 IMPRESSION: Improved alignment.. Discharge Plan Discharge Patient Disposition: Home Clinical Impression: Closed dislocation of fifth toe of right foot Qualifiers: Encounter type: initial encounter Qualified Code(s): S93.104A - Unspecified dislocation of right toe(s), initial encounter Closed fracture of fifth toe of right foot Qualifiers: Encounter type: initial encounter Qualified Code(s): S92.501A - Displaced unspecified fracture of right lesser toe(s), initial encounter for closed fracture Condition: Stable Prescriptions: New ibuprofen 800 mg tablet 800 mg PO Q8H PRN (Reason: pain) Qty: 20 0RF No Action ondansetron 4 mg tablet,disintegrating 4 mg PO Q6H PRN (Reason: nausea and vomiting) Qty: 10 2RF pantoprazole [Protonix] [address] for susp in packet 40 mg PO BID 14 Days Qty: 28 1RF sucralfate 1 gram tablet 1 g PO BID promethazine 50 mg tablet 50 mg PO TID PRN (Reason: nausea/vomiting) Qty: 20 0RF Discharge Orders: Discharge ED (Routine); Ordered 11/30/22 Ordered By: Isidro Forbes Discharge Diet: Regular Discharge Activity: Increase activity as tolerated Patient Instructions: Fractures - Phalanx (Toe) Activity Restrictions/Additional Instructions: Follow-up with medical provider as directed. Case management should be contacted in the next several days set up an appointment with podiatry for follow-up. Use crutches to limit weightbearing for the next several days to allow for healing. Rest, ice and elevate right foot. Keep toe enid taped. Take medications as prescribed. Return to the ER or your medical provider if condition worsens. Please read and understand discharge instructions. Thank you for choosing [facility] for your healthcare needs today. Please realize this is an emergency room and that we are providing you with a medical screening exam and this may not be complete and all inclusive of all the testing and or work up that you may need to determine your ailment or severity of your illness. It is very important that you follow up as instructed or that you return to the Emergency Department should you have concerns or if your condition changes or worsens in any way. Coding Level of Care Code ED Lanolin Plant Operator for Jose Patel
--- NOTE | 2022-11-30 10:48 | XR_ITS ---
WS: [id number] EXAMINATION: XR foot RT min 3V* [id number] REASON FOR EXAM: post reduction of dislocation COMPARISON: Few minutes earlier ORDER DATE: 11/30/2022 10:59 AM TECHNIQUE: 3 views of the right foot were obtained. X-RAY FINDINGS: Due to the overlapping bony images and a limited one view showing the fifth proximal phalanx on the p revious study represents chronic fracture is subacute with some healing change suggested at the fract ure site with improved alignment post reduction XR/XR foot RT min 3V* [id number] IMPRESSION: Improved alignment..
[2022-11-30] MEDS: HYDROcodone-acetaminophen 7.5-325 mg Tablet 1 TAB PO (11:07)
--- NOTE | 2022-11-30 13:44 | DCPLANNER ---
Addendum entered by Flory Puentes 12/01/22 08:59: business support manager received the following message from the podiatry clinic regarding follow up appointment: Patient stated his toe seems to be doing well and he does not wish to follow up at this time. I told the patient if it started giving him more issues he could call us and get in to see Dr. Juarez Original Note: business support manager had message to schedule a follow up appointment for patient with podiatry. business support manager sent patients information to the front office staff at podiatry. Patients information will be printed and reviewed. Clinic will call patient with appointment information.
--- NOTE | 2022-12-08 12:45 | DCPLANNER ---
publishing manager called patient due to no primary care physician - phone not accepting calls at this time.
== END 2022-11-30 11:46 | disposition home or self-care (01) ==
PROVIDERS: Emergency Provider Physician Assistant
DX: S92.501A Displaced unspecified fracture of right lesser toe(s), initial encounter for closed fracture (principal); S93.104A Unspecified dislocation of right toe(s), initial encounter; F17.210 Nicotine dependence, cigarettes, uncomplicated; W22.09XA Striking against other stationary object, initial encounter
CPT/HCPCS: 28515; 73620; 73630; 99283; E0114

== ENCOUNTER 2022-12-24 06:48 | Emergency (ER) | payer SELFPAY ==
[2022-12-24 06:59] VITALS: BP 141/85; PULSE 87; RESP 16; TEMP 36.9; O2SAT 96
--- NOTE | 2022-12-24 07:08 | ED_ITS ---
HPI - Abdominal Pain General: Chief Complaint: Abdominal Pain Stated Complaint: n/v/abd pain Time Seen by Provider: 12/24/22 06:56 Source: patient Mode of arrival: ambulatory History of Present Illness: 27-year-old male presents to the emergency room with persistent nausea vomiting this been a recurrent problem in the past she has been seen multiple x7-month ondansetron pantoprazole promethazine cell Carafate none of these to improvement at all. He does not have insurance so has been difficult for him to get seen anywhere due to financial constraints. MD elicited complaint: abdominal pain Pertinent past history: none Onset (ago): day(s) (3) Pain Consistency: constant Location: Epigastric Severity: severe Quality: cramping Exacerbating factors: nothing Relieving factors: nothing Associated Symptoms: Reports nausea and vomiting; Denies anorexia, belching, bloating, change in bowel habits, change in stool character, chills, coffee ground emesis, constipation, GI cramping, diarrhea, dyspepsia, dysuria, excessive flatus, fever(s), heartburn, hematochezia, hematuria, hematemesis, fecal incontinence, loose stools, melena, poor appetite and syncope Review of Systems Const: Denies: fever(s) or chills ENMT: Denies: throat pain, ear or mastoid pain, nasal discharge or nasal congestion Card: Denies: chest pain, palpitations, irregular heart rhythm, edema or syncope Resp: Denies: dyspnea, productive cough or non-productive cough GI: Reports: abdominal pain, nausea and vomiting; Denies: hematemesis, coffee ground emesis, heartburn, diarrhea, constipation, bloating, GI cramping, belching, excessive flatus, fecal incontinence, change in bowel habits, change in stool character, hematochezia or melena : Denies: dysuria, urinary frequency, urinary urgency or hematuria Skin/Breast: Denies: rash or pruritus PFSH ED PFSH: Medical History No pertinent family history Surgical History No pertinent past surgical history Family History Denies family history of Diabetes Dementia Hypertension Social History Smoking and tobacco status: current some day smoker Alcohol intake: current Alcohol intake frequency: few times a week Substance/Drug Use: current Substance/Drug use frequency: few times a week Physical Exam Const: GENERAL APPEARANCE: cooperative ORIENTATION/CONSCIOUSNESS: Yes awake, Yes oriented to person, Yes oriented to place and Yes oriented to time HENMT: COMMON NORMALS: normocephalic, atraumatic and hearing grossly normal bilaterally HEAD & SCALP: normocephalic and atraumatic Resp: COMMON NORMALS: normal respiratory effort, No retractions, No use of accessory muscles and clear to auscultation bilaterally AUSCULTATION: clear to auscultation bilaterally Cardio: COMMON NORMALS: regular rate, regular rhythm and No murmurs present (Cardio) RATE: regular rate RHYTHM: regular rhythm GI: COMMON NORMALS: No hepatosplenomegaly present AUSCULTATION: Yes normoactive bowel sounds PALPATION: Yes Tenderness to palpation present (GI) (Diffusely), No Guarding due to palpation present (GI) and Yes No hepatosplenomegaly present Extremity: COMMON NORMALS: normal to inspection, capillary refill normal, no clubbing, cyanosis or edema, no calf tenderness and no pedal edema Neuro: SENSORIUM/ORIENTATION: Yes oriented to person, Yes oriented to place and Yes oriented to time Skin: COMMON NORMALS: no rashes or lesions noted GENERAL SKIN EXAM: no rashes or lesions noted Course Vital Signs: Vital signs: Vital Signs Temperature 98.5 F 12/24/22 06:59 Pulse Rate 110 H 12/24/22 07:35 Respiratory Rate 18 12/24/22 07:35 Blood Pressure 141/85 12/24/22 07:35 Pulse Oximetry 99 12/24/22 07:35 Oxygen Delivery Me thod Room Air 12/24/22 07:35 MDM - Abdominal Pain Medical Decision Making Improved after fluids and medications. Discussed with the patient the role of marijuana complaint of recurrent persistent nausea and vomiting encourage abst inence. Olanzapine and Ativan to use as needed continues Protonix and Carafate. We will have case management assist with establishing a PCP. Medical Records I reviewed the patient's medical records. Lab Data I reviewed the patient's lab results. 12/24/22 07:07 12/24/22 07:07 Labs/Radiology: Laboratory Results WBC 13.9 10^3/uL (4.0-10.0) H 12/24/22 07:07 RBC 5.41 10^6/uL (4.1-5.3) H 12/24/22 07:07 Hgb 15.6 g/dL (11.7-16.6) 12/24/22 07:07 Hct 44.8 % (42.0-52.0) 12/24/22 07:07 MCV 82.8 fl (80-94) 12/24/22 07:07 MCH 28.8 pg (28.0-34.0) 12/24/22 07:07 MCHC 34.8 g/dL (30.0-36.0) 12/24/22 07:07 RDW 12.5 % (12.1-15.1) 12/24/22 07:07 Plt Count 315 10^3/cmm (130-400) 12/24/22 07:07 MPV 9.3 fL (7.4-10.4) 12/24/22 07:07 Neut % (Auto) 80.1 % 12/24/22 07:07 Lymph % (Auto) 9.2 % 12/24/22 07:07 [place] % (Auto) 9.5 % 12/24/22 07:07 Eos % (Auto) 0.6 % 12/24/22 07:07 Baso % (Auto) 0.2 % 12/24/22 07:07 Neut # (Auto) 11.13 10^3/uL (1.8-7.7) H 12/24/22 07:07 Lymph # (Auto) 1.3 10^3/uL (0.8-4.8) 12/24/22 07:07 [place] # (Auto) 1.3 10^3/uL (0.2-0.9) H 12/24/22 07:07 Eos # (Auto) 0.1 10^3/uL (0.0-0.8) 12/24/22 07:07 Baso # (Auto) 0.0 10^3/uL (0.0-0.1) 12/24/22 07:07 Nucleated RBC % (auto) 0 % 12/24/22 07:07 Nucleated RBCs # 0.0 /100WBC 12/24/22 07:07 Sodium 134 mmol/L (136-145) L 12/24/22 07:07 Potassium 3.5 mmol/L (3.5-5.1) 12/24/22 07:07 Chloride 92 mmol/L (98-107) L 12/24/22 07:07 Carbon Dioxide 24 mmol/L (22-29) 12/24/22 07:07 Anion Gap 21.5 (5-19) H 12/24/22 07:07 BUN 20 mg/dL (6-20) 12/24/22 07:07 Creatinine 0.8 mg/dL (0.7-1.2) 12/24/22 07:07 GFR Calculation 116.9 mL/min (90-130) 12/24/22 07:07 Glucose 127 mg/dL (65-115) H 12/24/22 07:07 Calculated Osmolality 282 mOsm/kg (285-295) L 12/24/22 07:07 Calcium 10.4 mg/dL (8.5-10.5) 12/24/22 07:07 Total Bilirubin 1.2 mg/dL (0.15-1.2) 12/24/22 07:07 AST 39 U/L (0-40) 12/24/22 07:07 ALT 28 U/L (0-41) 12/24/22 07:07 Alkaline Phosphatase 57 U/L (40-130) 12/24/22 07:07 Total Protein 7.8 g/dL (6.6-8.7) 12/24/22 07:07 Albumin 5.2 g/dL (3.5-5.2) 12/24/22 07:07 Globulin 2.6 g/dL (1.3-4.6) 12/24/22 07:07 Lipase 41 U/L (13-60) 12/24/22 07:07 Urine Color Yellow (Yellow) 12/24/22 08:13 Urine Appearance Clear (CLEAR) 12/24/22 08:13 Urine pH 6 (5-7) 12/24/22 08:13 Ur Specific [place] 1.020 (1.005-1.030) 12/24/22 08:13 Urine Protein 1+ (Negative) H 12/24/22 08:13 Urine Glucose (UA) Norm (Normal) 12/24/22 08:13 Urine Ketones 3+ (Negative) H 12/24/22 08:13 Urine Blood Neg (Negative) 12/24/22 08:13 Urine Nitrate Negative (Negative) 12/24/22 08:13 Urine Bilirubin 1+ (Negative) H 12/24/22 08:13 Urine Urobilinogen Neg mg/dL (Negative) 12/24/22 08:13 Ur Leukocyte Esterase Negative (Negative) 12/24/22 08:13 Urine RBC 0-4 /hpf (0-2) H 12/24/22 08:13 Urine WBC 0-4 /hpf (0-5) H 12/24/22 08:13 Ur Squamous Epith Cells 0-4 /hpf (0-5) H 12/24/22 08:13 Amorphous Sediment Not Reportable 12/24/22 08:13 Urine Bacteria Trace /hpf (NONE) 12/24/22 08:13 Urine Mucus 2+ /hpf 12/24/22 08:13 Discharge Plan Discharge Patient Disposition: Home Clinical Impression: Cannabinoid hyperemesis syndrome Condition: Stable Prescriptions: New olanzapine 10 mg tablet,disintegrating 10 mg PO Q8H PRN (Reason: nausea and vomiting) 7 Days Qty: 21 0RF Ativan 2 mg tablet 2 mg buccal TID PRN (Reason: nausea and vomiting) Qty: 10 0RF Discontinued promethazine 50 mg tablet 50 mg PO TID PRN (Reason: nausea/vomiting) Qty: 20 0RF ibuprofen 800 mg tablet 800 mg PO Q8H PRN (Reason: pain) Qty: 20 0RF No Action ondansetron 4 mg tablet,disintegrating 4 mg PO Q6H PRN (Reason: nausea and vomiting) Qty: 10 2RF pantoprazole [Protonix] [address] for susp in packet 40 mg PO BID 14 Days Qty: 28 1RF sucralfate 1 gram tablet 1 g PO BID Discharge Orders: Discharge ED (Routine); Ordered 12/24/22 Ordered By: Georges Galloway Patient Instructions: Opioid Safety, Pain Management Coding Level of Care Code ED Entry Specialist for Jose Patel
[2022-12-24 07:17] LABS: Basophils % 0.2 %; Eosinophils # 0.1 10^3/uL (0.0-0.8); Eosinophils % 0.6 %; Hematocrit 44.8 % (42.0-52.0); Hemoglobin 15.6 g/dL (11.7-16.6); Lymphocytes # 1.3 10^3/uL (0.8-4.8); Lymphocytes % 9.2 %; Mean Corpuscular HGB Conc 34.8 g/dL (30.0-36.0); Mean Corpuscular Hemoglobin 28.8 pg (28.0-34.0); Mean Corpuscular Volume 82.8 fl (80-94); Mean Platelet Volume 9.3 fL (7.4-10.4); Monocytes # 1.3 10^3/uL (0.2-0.9); Monocytes % 9.5 %; Neutrophils # 11.13 10^3/uL (1.8-7.7); Neutrophils % 80.1 %; Nucleated Red Blood Cells % 0 %; Platelet Count 315 10^3/cmm (130-400); Red Blood Count 5.41 10^6/uL (4.1-5.3); Red Cell Distribution Width 12.5 % (12.1-15.1); White Blood Count 13.9 10^3/uL (4.0-10.0)
[2022-12-24] MEDS: haloperidol inj 5 mg/mL INJ 1 mL 2.5 MG IVP (07:24)
[2022-12-24] MEDS: sodium chloride 0.9% 1,000 ML 999 ML IV ×2 (07:24→07:41)
[2022-12-24] MEDS: LORazepam 2 mg/mL INJ 1 mL IVP (07:24)
[2022-12-24] MEDS: ondansetron 2 mg/ML SDV 2 mL 4 MG IVP (07:24)
[2022-12-24 07:30] LABS: Alanine Aminotransferase 28 U/L (0-41); Albumin Level 5.2 g/dL (3.5-5.2); Alkaline Phosphatase 57 U/L (40-130); Anion Gap 21.5 (5-19); Aspartate Amino Transferase 39 U/L (0-40); Blood Urea Nitrogen 20 mg/dL (6-20); Calcium 10.4 mg/dL (8.5-10.5); Carbon Dioxide 24 mmol/L (22-29); Chloride 92 mmol/L (98-107); Globulin 2.6 g/dL (1.3-4.6); Glomerular Filtration Rate 116.9 mL/min (90-130); Glucose 127 mg/dL (65-115); Lipase 41 U/L (13-60); Osmolality Calculated 282 mOsm/kg (285-295); Potassium 3.5 mmol/L (3.5-5.1); Sodium 134 mmol/L (136-145); Total Bilirubin 1.2 mg/dL (0.15-1.2); Total Protein 7.8 g/dL (6.6-8.7)
[2022-12-24 07:35] VITALS: BP 141/85; PULSE 110; RESP 18; O2SAT 99
[2022-12-24 08:53] LABS: Add Urine Microscopic? YES; Bacteria Urine TRACE /hpf; Bilirubin Urine 1+ (Negative); Blood Urine Neg (Negative); Glucose Urine UA Norm (Normal); Ketones Urine 3+ (Negative); Leukocyte Esterase Urine Negative (Negative); Nitrate Urine Negative (Negative); Protein Urine 1+ (Negative); RBC Urine 0-4 /hpf (0-2); Squamous Epithelial Cell Urine 0-4 /hpf (0-5); Urine Appearance Clear (CLEAR); Urine Color Yellow (Yellow); Urobilinogen Urine Neg (Negative); WBC Urine 0-4 /hpf (0-5); pH Urine 6 (5-7)
[2022-12-24 08:54] LABS: Add Urine Culture? No; Mucus Urine 2+ /hpf
[2022-12-24 09:31] VITALS: BP 141/85; PULSE 110; RESP 18; O2SAT 99
--- NOTE | 2022-12-25 14:23 | DCPLANNER ---
project manager/team coach called patient due to no primary care provider - no answer at this time.
== END 2022-12-24 09:33 | disposition home or self-care (01) ==
PROVIDERS: Emergency Provider Family Medicine
DX: R11.2 Nausea with vomiting, unspecified (principal); F12.90 Cannabis use, unspecified, uncomplicated; F17.210 Nicotine dependence, cigarettes, uncomplicated
CPT/HCPCS: 36415; 80053; 81001; 83690; 85025; 96361; 96374; 96375; 99284; J1630; J2060; J2405; J7030

== ENCOUNTER 2022-12-28 06:32 | Emergency (ER) | payer SELFPAY ==
[2022-12-28 06:32] VITALS: BP 144/103; PULSE 90; RESP 22; TEMP 36.7; O2SAT 98; BMI 23.7
[2022-12-28] MEDS: haloperidol inj 5 mg/mL INJ 1 mL 2.5 MG IVP (07:13)
[2022-12-28] MEDS: LORazepam 2 mg/mL INJ 1 mL IVP (07:13)
[2022-12-28 07:14] LABS: Basophils # 0.1 10^3/uL (0.0-0.1); Basophils % 0.6 %; Eosinophils # 0.1 10^3/uL (0.0-0.8); Eosinophils % 1.3 %; Hematocrit 44.3 % (42.0-52.0); Hemoglobin 15.5 g/dL (11.7-16.6); Lymphocytes # 1.2 10^3/uL (0.8-4.8); Lymphocytes % 14.5 %; Mean Corpuscular Hemoglobin 28.9 pg (28.0-34.0); Mean Corpuscular Volume 82.6 fl (80-94); Mean Platelet Volume 9.2 fL (7.4-10.4); Monocytes # 0.8 10^3/uL (0.2-0.9); Monocytes % 9.7 %; Neutrophils # 6.28 10^3/uL (1.8-7.7); Neutrophils % 73.5 %; Nucleated Red Blood Cells % 0 %; Platelet Count 291 10^3/cmm (130-400); Red Blood Count 5.36 10^6/uL (4.1-5.3); White Blood Count 8.5 10^3/uL (4.0-10.0)
[2022-12-28] MEDS: sodium chloride 0.9% 1,000 ML 999 ML IV ×2 (07:14→08:13)
[2022-12-28 07:18] VITALS: BP 167/103; PULSE 86; O2SAT 98
--- NOTE | 2022-12-28 07:19 | ED_ITS ---
HPI - Nausea/Vomiting/Diarrhea General: Chief complaint: Nausea/Vomiting/Diarrhea Stated complaint: n/v for 7 days Time Seen by Provider: 12/28/22 06:36 Source: patient Mode of arrival: ambulatory History of Present Illness: 27-year-old male presents emergency room persistent nausea vomiting. He was seen a few days ago he discharged home with olanzapine and Ativan to use as needed he has been trying to swallow was unable to keep down he is getting a little bit of blood-streaked emesis near the end of episodes of vomiting. He had some mild relief after he was here initially but resumed again. He denies any fever sweats chills no hematochezia or melena. He is a regular user of marijuana products, at the last visit we discussed the role that that may play in these episodes. MD elicited complaint: nausea and vomiting Pertinent past history: cyclical vomiting (Hyperemesis cannabinoid) Onset (ago): day(s) Description of vomiting: watery and bilious Associated nausea: Yes Associated abdominal pain: Yes Location of pain: Diffuse Quality: cramping Exacerbating factors: eating and vomiting Relieving factors: none Associated symtoms: Reports anxiety and nausea; Denies bloating, change in vision, chest pain, cough, diaphoresis, decreased urine output, dizziness, dysuria, epistaxis, fatigue, fecal incontinence, fevers/chills, headache(s), anorexia, malaise, myalgias, numbness, palpitations, rash, short of breath, syncope, tenesmus, tinnitus or weakness Treatment prior to arrival: other (Antiemetics unable to keep down) Review of Systems Const: Denies: fever(s), chills, fatigue, malaise or diaphoresis Eyes: Denies: change in vision ENMT: Denies: tinnitus or epistaxis Card: Denies: chest pain, palpitations or syncope Resp: Denies: dyspnea, productive cough or non-productive cough GI: Reports: abdominal pain, nausea, vomiting and hematemesis (Streaks and flecks occasionally); Denies: bloating or fecal incontinence : Denies: dysuria, urinary frequency or urinary urgency Musc: Denies: neck pain or back pain Skin/Breast: Denies: rash or pruritus Neuro: Denies: headache(s) or dizziness Psych: Reports: anxiety PFSH ED PFSH: Medical History No pertinent family history Surgical History No pertinent past surgical history Family History Denies family history of Diabetes Dementia Hypertension Social History Smoking and tobacco status: current some day smoker Alcohol intake: current Alcohol intake frequency: few times a week Substance/Drug Use: current Substance/Drug use frequency: few times a week Physical Exam Const: GENERAL APPEARANCE: cooperative and comfortable ORIENTATION/CONSCIOUSNESS: Yes awake, Yes oriented to person, Yes oriented to place and Yes oriented to time HENMT: COMMON NORMALS: normocephalic, atraumatic and hearing grossly normal bilaterally HEAD & SCALP: normocephalic and atraumatic Resp: COMMON NORMALS: normal respiratory effort, No retractions, No use of accessory muscles and clear to auscultation bilaterally AUSCULTATION: clear to auscultation bilaterally Cardio: COMMON NORMALS: regular rate, regular rhythm and No murmurs present (Cardio) RATE: regular rate RHYTHM: regular rhythm GI: COMMON NORMALS: Soft to palpation and No hepatosplenomegaly present AUSCULTATION: Yes normoactive bowel sounds PALPATION: Yes Soft to palpation, No Tenderness to palpation present (GI), No Guarding due to palpation present (GI) and Yes No hepatosplenomegaly present Extremity: COMMON NORMALS: normal to inspection, capillary refill normal, no clubbing, cyanosis or edema, no calf tenderness and no pedal edema Neuro: SENSORIUM/ORIENTATION: Yes oriented to person, Yes oriented to place a nd Yes oriented to time Skin: COMMON NORMALS: no rashes or lesions noted GENERAL SKIN EXAM: no rashes or lesions noted Course Vital Signs: Vital signs: Vital Signs Temperature 98.1 F 12/28/22 06:32 Pulse Rate 99 12/28/22 10:22 Respiratory Rate 22 H 12/28/22 06:32 Blood Pressure 127/77 12/28/22 10:22 Pulse Oximetry 99 12/28/22 10:22 Oxygen Delivery Me thod Room Air 12/28/22 06:32 MDM - Nausea/Vomiting/Diarrhea Medical Decision Making No acute distress Labs reviewed with the patient. He is feeling better after IV fluids and medications. We will discharge him home he was trying to take the olanzapine and the Ativan p.o. discussed with the olanzapine will dissolve under the tongue and the Ativan he should use buccal. He has continued to use marijuana products encouraged him to completely abstain follow-up with his primary care return if needed. Medical Records I reviewed the patient's medical records. Lab Data I reviewed the patient's lab results. 12/28/22 06:59 12/28/22 06:59 Laboratory Results WBC 8.5 10^3/uL (4.0-10.0) 12/28/22 06:59 RBC 5.36 10^6/uL (4.1-5.3) H 12/28/22 06:59 Hgb 15.5 g/dL (11.7-16.6) 12/28/22 06:59 Hct 44.3 % (42.0-52.0) 12/28/22 06:59 MCV 82.6 fl (80-94) 12/28/22 06:59 MCH 28.9 pg (28.0-34.0) 12/28/22 06:59 MCHC 35.0 g/dL (30.0-36.0) 12/28/22 06:59 RDW 12.0 % (12.1-15.1) L 12/28/22 06:59 Plt Count 291 10^3/cmm (130-400) 12/28/22 06:59 MPV 9.2 fL (7.4-10.4) 12/28/22 06:59 Neut % (Auto) 73.5 % 12/28/22 06:59 Lymph % (Auto) 14.5 % 12/28/22 06:59 [place] % (Auto) 9.7 % 12/28/22 06:59 Eos % (Auto) 1.3 % 12/28/22 06:59 Baso % (Auto) 0.6 % 12/28/22 06:59 Neut # (Auto) 6.28 10^3/uL (1.8-7.7) 12/28/22 06:59 Lymph # (Auto) 1.2 10^3/uL (0.8-4.8) 12/28/22 06:59 [place] # (Auto) 0.8 10^3/uL (0.2-0.9) 12/28/22 06:59 Eos # (Auto) 0.1 10^3/uL (0.0-0.8) 12/28/22 06:59 Baso # (Auto) 0.1 10^3/uL (0.0-0.1) 12/28/22 06:59 Nucleated RBC % (auto) 0 % 12/28/22 06:59 Nucleated RBCs # 0.0 /100WBC 12/28/22 06:59 Sodium 134 mmol/L (136-145) L 12/28/22 06:59 Potassium 3.7 mmol/L (3.5-5.1) 12/28/22 06:59 Chloride 93 mmol/L (98-107) L 12/28/22 06:59 Carbon Dioxide 24 mmol/L (22-29) 12/28/22 06:59 Anion Gap 20.7 (5-19) H 12/28/22 06:59 BUN 14 mg/dL (6-20) 12/28/22 06:59 Creatinine 0.9 mg/dL (0.7-1.2) 12/28/22 06:59 GFR Calculation 102.0 mL/min (90-130) 12/28/22 06:59 Glucose 110 mg/dL (65-115) 12/28/22 06:59 Calculated Osmolality 279 mOsm/kg (285-295) L 12/28/22 06:59 Calcium 9.4 mg/dL (8.5-10.5) 12/28/22 06:59 Total Bilirubin 0.8 mg/dL (0.15-1.2) 12/28/22 06:59 AST 16 U/L (0-40) 12/28/22 06:59 ALT 19 U/L (0-41) 12/28/22 06:59 Alkaline Phosphatase 53 U/L (40-130) 12/28/22 06:59 Total Protein 7.3 g/dL (6.6-8.7) 12/28/22 06:59 Albumin 4.7 g/dL (3.5-5.2) 12/28/22 06:59 Globulin 2.6 g/dL (1.3-4.6) 12/28/22 06:59 Discharge Plan Discharge Patient Disposition: Home Clinical Impression: Cannabinoid hyperemesis syndrome Condition: Stable Prescriptions: No Action ondansetron 4 mg tablet,disintegrating 4 mg PO Q6H PRN (Reason: nausea and vomiting) Qty: 10 2RF pantoprazole [Protonix] [address] for susp in packet 40 mg PO BID 14 Days Qty: 28 1RF olanzapine 10 mg tablet,disintegrating 10 mg PO Q8H PRN (Reason: nausea and vomiting) 7 Days Qty: 21 0RF Ativan 2 mg tablet 2 mg buccal TID PRN (Reason: nausea and vomiting) Qty: 10 0RF sucralfate 1 gram tablet 1 g PO BID Discharge Orders: Discharge ED (Routine); Ordered 12/28/22 Ordered By: Georges Galloway Discharge Diet: Clear Liquid Discharge Activity: Increase activity as tolerated Patient Instructions: Opioid Safety, Pain Management Activity Restrictions/Additional Instructions: You are seen today for persistent nausea and vomiting. Symptoms improved after treatment here. Recommended that you intake only clear fluids for the next 24 to 48 hours use the olanzapine sublingual and Ativan buccal for recurrent symptoms. Abstain from marijuana products. Follow-up with your primary care doctor. Continue on other medications as previously prescribed. Coding Level of Care Code ED Digital Media Analyst for Jose Patel
[2022-12-28 07:27] LABS: Alanine Aminotransferase 19 U/L (0-41); Albumin Level 4.7 g/dL (3.5-5.2); Alkaline Phosphatase 53 U/L (40-130); Anion Gap 20.7 (5-19); Aspartate Amino Transferase 16 U/L (0-40); Blood Urea Nitrogen 14 mg/dL (6-20); Calcium 9.4 mg/dL (8.5-10.5); Carbon Dioxide 24 mmol/L (22-29); Chloride 93 mmol/L (98-107); Globulin 2.6 g/dL (1.3-4.6); Glucose 110 mg/dL (65-115); Osmolality Calculated 279 mOsm/kg (285-295); Potassium 3.7 mmol/L (3.5-5.1); Sodium 134 mmol/L (136-145); Total Bilirubin 0.8 mg/dL (0.15-1.2); Total Protein 7.3 g/dL (6.6-8.7)
[2022-12-28 07:48] VITALS: BP 152/86; O2SAT 95
[2022-12-28 08:23] VITALS: BP 149/99; O2SAT 98
[2022-12-28 10:22] VITALS: BP 127/77; PULSE 99; O2SAT 99
--- NOTE | 2022-12-30 14:49 | DCPLANNER ---
natural science manager called patient due to no primary care provider - no answer at this time.
== END 2022-12-28 10:23 | disposition home or self-care (01) ==
PROVIDERS: Emergency Provider Family Medicine
DX: R11.2 Nausea with vomiting, unspecified (principal); F12.90 Cannabis use, unspecified, uncomplicated; F17.210 Nicotine dependence, cigarettes, uncomplicated
CPT/HCPCS: 36415; 80053; 85025; 96361; 96374; 99284; J1630; J2060; J7030

== ENCOUNTER 2025-02-21 21:10 | Emergency (ER) | payer SELFPAY ==
[2025-02-21 21:11] VITALS: BP 148/80; PULSE 103; RESP 20; TEMP 36; O2SAT 95; BMI 26.4
--- NOTE | 2025-02-21 21:14 | W.ED.NAVMDI ---
HPI - Nausea/Vomiting/Diarrhea General: Chief complaint: Nausea/Vomiting/Diarrhea Stated complaint: N throwing up Blood Time Seen by Provider: 02/21/25 21:10 Source: patient Mode of arrival: ambulatory Limitations: no limitations History of Present Illness: Patient is a 29-year-old male presents to ED today with a complaint of nausea and vomiting/hematemesis beginning today. Patient states last year he had several almost identical episodes of abdominal pain and nausea/vomiting. He was told symptoms could be related to hyperemesis cannabis syndrome and also was told at some point he may have gastric ulcers. Patient has been taking Protonix. He states he never stopped smoking marijuana. He states he had been doing good until today when he became very nauseous and started vomiting. He is complaining of diffuse abdominal achiness and cramping. He states he began noticing blood in his vomit. He is not running fevers. No changes in his bowel movements. He has not noticed any recent dark or tarry stools. He is not on anticoagulation. Reports occasional/social alcohol use. MD elicited complaint: nausea, vomiting and other (hematemesis) Pertinent past history: cyclical vomiting Onset (ago): hour(s) Description of vomiting: bloody Associated nausea: Yes Associated abdominal pain: Yes Location of pain: Diffuse Radiation: diffuse Pain consistency: constant Severity: moderate Quality: aching Exacerbating factors: none Relieving factors: none Context: marijuana use Associated symtoms: Reports nausea; Denies chest pain, dizziness, dysuria, fatigue, headache(s) or malaise Related Data Previous Rx's ?Medication ?Instructions ?Recorded lorazepam 2 mg tablet (Ativan) 1 mg (1/2 x 2 mg) buccal TID PRN 02/21/25 nausea and vomiting #10 tabs ondansetron 4 mg disintegrating 4 mg PO Q6H PRN nausea and 02/21/25 tablet vomiting #14 tabs pantoprazole 40 mg tablet,delayed 40 mg PO DAILY 4 weeks #42 tabs 02/21/25 release (Protonix) sucralfate 1 gram tablet (Carafate) 1 g PO TID 2 weeks #42 tabs 02/21/25 Allergies Allergy/AdvReac Type Severity Reaction Status Date / Time shellfish derived Allergy ADR-Drowsy Verified 12/24/22 07:04 Review of Systems Const: Denies: fever(s), chills, body aches, fatigue or malaise Card: Denies: chest pain Resp: Denies: dyspnea GI: Reports: abdominal pain, nausea, vomiting and hematemesis; Denies: change in bowel habits, pain on defecation, hematochezia or melena : Denies: flank pain, dysuria or hematuria Musc: Denies: neck pain or back pain Neuro: Denies: headache(s) or dizziness PFSH ED PFSH: Medical History No pertinent family history Surgical History No pertinent past surgical history Family History Denies family history of Diabetes Dementia Hypertension Social History Smoking and tobacco/nicotine status: current some day tobacco/nicotine user Alcohol intake: current Alcohol intake frequency: few times a week Substance/Drug Use: current Substance/Drug use frequency: few times a week Physical Exam Const: COMMON NORMALS: average body habitus, patient oriented x3, no limitations, healthy appearing, alert and well nourished GENERAL APPEARANCE: cooperative and in distress (nauseous appearing; actively vomiting) ORIENTATION/CONSCIOUSNESS: Yes awake, Yes oriented to person, Yes oriented to place and Yes oriented to time Resp: COMMON NORMALS: normal respiratory effort and clear to auscultation bilaterally AUSCULTATION: clear to auscultation bilaterally Cardio: COMMON NORMALS: regular rate and regular rhythm RATE: regular rate RHYTHM: regular rhythm GI: COMMON NORMALS: Normal to inspection, nondistended, normoactive bowel sounds present, Soft to palpation, No hepatosplenomegaly present and no masses INSPECTION: Yes normal to inspection AUSCULTATION: Yes normoactive bowel sounds PALPATION: Yes Soft to palpation, Yes Tenderness to palpation present (GI) (diffusely), No Guarding due to palpation present (GI), No Rigid due to palpation and Yes No hepatosplenomegaly present : COMMON NORMALS: Yes no CVA tenderness BLADDER/KIDNEY EXAM: Yes no CVA tenderness Back/Pelvis: COMMON NORMALS: no CVA tenderness and thoracic and lumbar spine normal to inspection Extremity: GENERAL: Yes normal exam except as noted Neuro: COMMON NORMALS: patient oriented x3, moves all extremities, no focal motor deficits and no sensory deficits noted SENSORIUM/ORIENTATION: Yes alert, Yes oriented to person, Yes oriented to place and Yes oriented to time Skin: COMMON NORMALS: no rashes or lesions noted GENERAL SKIN EXAM: no rashes or lesions noted Course Vital Signs: Vital signs: Vital Signs Temperature 96.8 F L 02/21/25 21:11 Pulse Rate 53 L 02/21/25 21:50 Respiratory Rate 18 02/21/25 21:50 Blood Pressure 144/79 02/21/25 21:50 Pulse Oximetry 96 02/21/25 21:50 Oxygen Delivery Me thod Room Air 02/21/25 21:50 MDM - Nausea/Vomiting/Diarrhea Medical Decision Making Patient is a nice 29-year-old male here for intractable nausea and vomiting as well as hematemesis starting today. He states he had nausea and vomiting for several hours before hematemesis started. Most likely this was secondary to forceful retching/possibly small Cande-Uriostegui. Patient was given medications here and feels significantly better. He has not had any further episodes of vomiting. Vital signs are stable. His H&H are stable. Blood work showing a white count of 19,000 which most likely is secondary to him again, retching and vomiting all day. I do not have any suspicion for any acute infection. Remainder of his labs are nonactionable. CT scan is unremarkable. DDx includes esophagitis, gastritis, peptic ulcer disease, hyperemesis cannabis syndrome, cyclical vomiting syndrome, among others. Patient will be placed on PPI/Carafate and will have him follow-up with general surgery for evaluation for possible endoscopy. Patient was given strict return to ED precautions. 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 Medical Records I reviewed the patient's medical records. Lab Data I reviewed the patient's lab results. 02/21/25 21:31 02/21/25 21:31 Radiology Impressions Abdomen/Pelvis CT 02/21/25 21:27 IMPRESSION: 1. No acute abdominopelvic abnormalities. 2. Mild hepatic steatosis. Laboratory Results WBC 19.04 10^3/uL (3.29-11.43) H 07/02/25 21: RBC 5.62 10^6/uL (3.85-5.65) 02/21/25 21: Hgb 16.40 g/dL (11.27-16.99) 02/21/25 21: Hct 48.0 % (37-53) 02/21/25 21: MCV 85.4 fl (82-101) 02/21/25 21: MCH 29.2 pg (27-33) 02/21/25 21: MCHC 34.2 g/dL (30-55) 02/21/25 21: RDW 13.0 % (12.1-15.1) 02/21/25: Plt Count 376 10^3/cmm (157-399) 02/21/25 21: MPV 9.3 fL (7.4-10.4) 02/21/25 21: Neut % (Auto) 78.9 % 02/21/25 21: Lymph % (Auto) 13.1 % 02/21/25 21: [facility] % (Auto) 6.8 % 02/21/25 21: Eos % (Auto) 0.3 % 02/21/25 21: Baso % (Auto) 0.3 % 02/21/25: Neut # (Auto) 15.03 10^3/uL (1.8-7.7) H 02/21/25 21: Lymph # (Auto) 2.5 10^3/uL (0.8-4.8) 02/21/25: [facility] # (Auto) 1.3 10^3/uL (0.2-0.9) H 02/21/25 21: Eos # (Auto) 0.1 10^3/uL (0.0-0.8) 02/21/25: Baso # (Auto) 0.1 10^3/uL (0.0-0.1) 02/21/25: Nucleated RBC % (auto) 0 % 02/21/25: Nucleated RBCs # 0.0 /100WBC 02/21/25 21: Sodium 141 mmol/L (136-145) 02/21/25 21:31 Potassium 3.9 mmol/L (3.5-5.1) 02/21/25 21:31 Chloride 99 mmol/L (98-107) 02/21/25 21:31 Carbon Dioxide 22 mmol/L (22-29) 02/21/25 21:31 Anion Gap 23.9 (5-19) H 02/21/25 21:31 BUN 14 mg/dL (6-20) 02/21/25 21:31 Creatinine 0.8 mg/dL (0.7-1.2) 02/21/25 21:31 GFR Calculation 115.1 mL/min (90-130) 02/21/25 21:31 Glucose 181 mg/dL (65-115) H 02/21/25 21:31 Calculated Osmolality 297 mOsm/kg (285-295) H 02/21/25 21:31 Calcium 10.4 mg/dL (8.5-10.5) 02/21/25 21:31 Total Bilirubin 0.7 mg/dL (0.15-1.2) 02/21/25 21:31 AST 24 U/L (0-40) 02/21/25 21:31 ALT 48 U/L (0-41) H 02/21/25 21:31 Alkaline Phosphatase 69 U/L (40-130) 02/21/25 21:31 Total Protein 8.2 g/dL (6.6-8.7) 02/21/25 21:31 Albumin 4.8 g/dL (3.5-5.2) 02/21/25 21:31 Globulin 3.4 g/dL (1.3-4.6) 02/21/25 21:31 Lipase 32 U/L (13-60) 02/21/25 21:31 All radiology interpretation(s) finalized by discharge Discharge Plan Discharge Patient Disposition: Home Clinical Impression: Nausea and vomiting Qualifiers: Vomiting type: hematemesis Qualified Code(s): K92.0 - Hematemesis Condition: Stable Prescriptions: New pantoprazole [Protonix] 40 mg tablet,delayed release (DR/EC) 40 mg PO DAILY 28 Days Qty: 42 0RF Rx Instructions: Take twice daily x 2 weeks. Then daily thereafter. sucralfate [Carafate] 1 gram tablet 1 g PO TID 14 Days Qty: 42 0RF Continued ondansetron 4 mg tablet,disintegrating 4 mg PO Q6H PRN (Reason: nausea and vomiting) Qty: 14 0RF Changed lorazepam [Ativan] 2 mg tablet 1 mg buccal TID PRN (Reason: nausea and vomiting) Qty: 10 0RF Discontinued pantoprazole [Protonix] [address] for susp in packet 40 mg PO BID 14 Days Qty: 28 1RF sucralfate 1 gram tablet 1 g PO BID Discharge Orders: Discharge ED (Routine); Ordered 02/21/25 Ordered By: Giana Liu Patient Instructions: Hematemesis (ED), Patient Portal & Roxanna Instructions Activity Restrictions/Additional Instructions: As we discussed, I am placing you on 2 different medications to help with your stomach (Pantoprazole and Sucralfate) as well as medications to help with your nausea (Zofran and Ativan). These medications have been called into [facility] pharmacy in [place]. You may pick them up in the morning. Case management should reach out to you tomorrow or next week to help set you up with your follow-up general surgery evaluation as you had blood in your vomit today. You need to return to the emergency department for onset of severe abdominal pain, repetitive episodes of vomiting, continued blood in your vomit, or any other concerns you may have. Print Language: Swedish Coding Level of Care Code ED Billboard Erector Helper for Jose Patel
--- OUTSIDE RECORDS SUMMARY | 2025-02-21 21:20 | XMS_ITS | Encounter Summary ---
Author Organization [employer] [facility] Address [address] [place] [address] Care Team Providers Care Seo Professional Name Role Phone Chandrika Andres, KARLA, García Cuevas Primary Care Pro vider Encounter Details Date Type Department Care Team (Late st Contact Info) Description 04/13/2012 Ancillary Orders [facility] [address] [place] [address] Brandon Lim MD [address] [place] [address] Trauma Social History Tobacco Use Types Packs/Day Years Used Date Smoking Tobacco: Never Alcohol Use Standard Drinks/Week Comments Yes 0.8 (1 standard drink = 0.6 oz p ure alcohol) Sex and Gender Information Value Date Recorded Sex Assigned at Not on file 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 Gender Identity Not on file Sexual Orientation Not on file Occupation Industry Job Start Date Job End Date Not on file Not on file Not on file Not on file documented as of this encounter Plan of Treatment Not on file documented as of this encounter Results * XR FEMUR 2 VW RIGHT (04/04/2012 1:00 PM CDT) Anatomical Region Laterality Modality Lower Extremity Computed Radiogr aphy Impressions 04/14/2012 9:38 AM CDT fracture of the shaft of the right femur near the junction of the distal thirds is anterior angulation of the distal fragments Narrative 04/14/2012 9:38 AM CDT ATTENTION: This replaces accession number [id number]. Exam: XR FEMUR 2 VW RIGHT Date: 04/13/2012 DESCRIPTION AP and lateral views of the right femur were obtained on backboard and crosstable showing shaft fracture of the right femur near the junction of the distal thirds, with approximately 4.2 cm overriding on the AP view. On the lateral view there is anterior angulation of approximately 45 degrees. Procedure Note Sebastian Jerez MD - 04/14/2012 ATTENTION: This replaces accession number [id number]. Exam: XR FEMUR 2 VW RIGHT Date: 04/13/2012 DESCRIPTION AP and lateral views of the right femur were obtained on backboard and crosstable showing shaft fracture of the right femur near the junction of the distal thirds, with approximately 4.2 cm overriding on the AP view. On the lateral view there is anterior angulation of approximately 45 degrees. IMPRESSION fracture of the shaft of the right femur near the junction of the distal thirds is anterior angulation of the distal fragments us Brandon Lim MD DIAGNOSTIC IMAGING ORDERABLE S Final Result documented in this encounter Visit Diagnoses Diagnosis Trauma Injury, other and unspecified, unspecified site Trauma Injury, other and unspecified, unspecified site documented in this encounter Care Teams Seo Professional Relationship Specialty Start Date End Date Chandrika Andres, KARLA [address] [place] [address] PCP - General NURSE PRACTITIONER 10/27/11 documented as of this encounter
--- OUTSIDE RECORDS SUMMARY | 2025-02-21 21:20 | XMS_ITS | Encounter Summary ---
Author Organization [employer] Address [address] [place] [address] Care Team Providers Care Clinical Dietician Name Role Phone KARLA Cobos Sr., Michael Dave Primary Care Pro vider Encounter Details Date Type Department Care Team (Late st Contact Info) Description 02/20/2025 External Device Data [facility] Provider, Abstract NO ADDRESS ON FILE Social History Tobacco Use Types Packs/Day Years Used Date Smoking Tobacco: Never Smokeless Tobacco: Never Alcohol Use Standard Drinks/Week Comments Yes 0.8 (1 standard drink = 0.6 oz p ure alcohol) Feeling Safe Answer Date Recorded Are you in a relationship wi th someone who hurts you emotionally and/or physically? 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
--- OUTSIDE RECORDS SUMMARY | 2025-02-21 21:20 | XMS_ITS | Encounter Summary ---
Author Organization [employer] [facility] Address [address] [place] [address] Care Team Providers Care Supervisory Investigative Specialist Name Role Phone KARLA Cobos Sr., Michael Dave Primary Care Pro vider Encounter Details Date Type Department Care Team (Late st Contact Info) Description 10/27/2011 Ancillary Orders [facility] [address] [place] [address] García Cobos Sr., FNP [address] [place] [address] Pain Social History Tobacco Use Types Packs/Day Years Used Date Smoking Tobacco: Never Assessed Sex and Gender Information Value Date Recorded Sex Assigned at Not on file 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
--- OUTSIDE RECORDS SUMMARY | 2025-02-21 21:20 | XMS_ITS | Encounter Summary ---
Author Organization [facility] Address [address] [place] [address] Care Team Providers Care Calciner Operator Helper Name Role Phone Chandrika Andres, García ACOSTA Primary Care Pro vider Encounter Details Date Type Department Care Team (Late st Contact Info) Description 10/27/2011 Ancillary Orders [facility] [address] [place] [address] García Cobos Sr., FNP [address] [place] [address] Pain Social History Tobacco Use Types Packs/Day Years Used Date Smoking Tobacco: Never Assessed Sex and Gender Information Value Date Recorded Sex Assigned at Not on file 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 There is incomplete visualization of the olecranon on the lateral view. Procedure Note Sebastian Jerez MD - 10/27/2011 Findings: AP and lateral views of the right forearm show no fracture, dislocation, or deformity. There is incomplete visualization of the olecranon on the lateral view. IMPRESSION Impression: unremarkable as visualized García Cobos Sr., KARLA DIAGNOSTIC IMAGIN G ORDERABLES Final Result documented in this encounter Visit Diagnoses Diagnosis Pain Generalized pain Pain Generalized pain documented in this encounter Care Teams Calciner Operator Helper Relationship Specialty Start Date End Date Chandirka Andres, KARLA [address] [place] [address] PCP - General NURSE PRACTITIONER 10/27/11 documented as of this encounter
--- OUTSIDE RECORDS SUMMARY | 2025-02-21 21:20 | XMS_ITS | Clinical Summary ---
Author Organization [facility] Address [address] Attn: Epic Prelude ADT [place]NEZ [address] Care Team Providers Care Master Ocean [employer]acht Name Role Phone Chandrika Andres, KARLA, García Cuevas Primary Care Pro vider Allergies Active Allergy Reactions Criticality Noted Date Comments Shellfish Containing Products Other (See Comments) 04/04/2012 makes me puffy Medications famotidine (PEPCID) 40 mg tabletIndication s:Gastroesophage al reflux disease with esophagitis, unspecified whether hemorrhage Take 1 Tablet (40 mg) by mouth 2 times daily. 180 Tablet 03/13/2024 Active Active Problems Problem Noted Date Diagnosed Date Fracture, femur closed, shaft right 04/05/2012 Encounters Date Type Department Care Team Description 02/20/2025 External Device Data [facility]CTION Provider, Abstract 02/07/2025 External Device Data [facility] Provider, Abstract 01/11/2025 External Device Data [facility] Provider, Abstract 01/10/2025 External Device Data [facility] Provider, Abstract 12/26/2024 External Device Data [facility]STRA[facility] Provider, Abstract from Last 3 Months Family History Medical History Relation Name Comments Healthy Father Healthy Mother Relation Name Status Comments Father Alive Mother Alive Social History Tobacco Use Types Packs/Day Years Used Date Smoking Tobacco: Never Smokeless Tobacco: Never Tobacco Cessation:Counseling Given: Yes Alcohol Use Standard Drinks/Week Comments Yes 0.8 (1 standard drink = 0.6 oz p ure alcohol) Feeling Safe Answer Date Recorded Are you in a relationship wi th someone who hurts you emotionally and/or physically? 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 Gender Identity Not on file Sexual Orientation Not on file Last Filed Vital Signs Vital Sign Reading Time Taken Comments Blood Pressure 120/78 05/17/2024 3:49 PM CDT Pulse 114 05/17/2024 3:49 PM CDT Temperature 37.3 C (99.2 F) 05/17/2024 3:49 PM CDT Respiratory Rate 18 05/17/2024 3:49 PM CDT Oxygen Saturation 99% 05/17/2024 3:49 PM CDT Inhaled Oxygen Concentration - - Weight 86.4 kg (190 lb 6.4 oz) 05/17/2024 3:49 P M CDT Height 167.6 cm (5' 6 ) 05/17/2024 3:49 PM CDT Body Mass Index 30.73 05/17/2024 3:49 PM CDT Plan of Treatment Health Maintenance Due Date Last Done Comments DTAP/TDAP/TD VACCINES (1 - Tdap) 2015 HEPATITIS B VACCINES (1 of 3 - 19+ 3-dose series) 2015 COVID-19 Vaccine ( season) 2024 05/02/2021, 03/28/2021 INFLUENZA VACCINE (#1) 2025 05/17/2024 HPV VACCINES Aged Out No longer eligi ble based on patient's age to complete this topic Medical Devices Implanted Type Area Vocal Teacher Device Identifier Shelf Expiration Date Model / Serial / Lot Cap End Ti T40 Strdrv 0mm 04.003.000s - [id number] Implanted:Qty: 1 on 04/05/2012 by Anmol Gilliland MD End Right: Femur [employer]ES [employer]AT[employer] 07/23/2020 04.003.000 S / / [id number] Nail-Ex Retro/Ante 10mm 04.013.460s - [id number] Implanted:Qty: 1 on 04/05/2012 by Anmol Gilliland MD Nail Right: Femur [employer]ES [employer]AT[employer] 08/23/2019 04.013.460 S / / [id number] Screw Loc Strdr 5x38mm 04.005.528s - [id number] Implanted:Qty: 1 on 04/05/2012 by Anmol Gilliland MD Screw Right: Femur [employer] 04/23/2020 04.005.528 S / / [id number] Screw Lock T25 Ster 5.0x44mm 04.005.534s - [id number] Implanted:Qty: 1 on 04/05/2012 by Anmol Gilliland MD Screw Right: Femur [employer]AT[employer] 05/23/2019 04.005.534 S / / [id number] Advance Directives For more information, please contact: [phone] * Full Code (Latest Code Status on File) Date Activated Date Inactivated Comments 03/31/2024 1:35 PM 03/31/2024 4:04 PM * Full Code Date Activated Date Inactivated Comments 03/31/2024 12:53 PM 03/31/2024 1:34 PM Care Teams Master Ocean Yacht Relationship Specialty Start Date End Date Chandrika Andres, KARLA [address] [place] [address] PCP - General NURSE PRACTITIONER 10/27/11
--- OUTSIDE RECORDS SUMMARY | 2025-02-21 21:20 | XMS_ITS | Clinical Summary ---
Author Organization [facility]anc[facility] Castro [facility] Address [address] [place] [address] Phone Care Team Providers Care Form Maker Name Role Phone Chandrika Andres, KARLA, García Cuevas Primary Care Pro vider Allergies Active Allergy Reactions Criticality Noted Date Comments Shellfish Containing Products Other (See Comments) 04/04/2012 makes me puffy Medications traMADol (ULTRAM) 50 mg Oral tabletIndication s:Fracture, femur closed, shaft (CMS/HCC) Take 1-2 Tabs by mouth every 12 hours as needed for Pain. 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 Gender Identity Not on file Sexual Orientation Not on file Occupation Industry Job Start Date Job End Date Not on file Not on file Not on file Not on file Last Filed Vital Signs Vital Sign Reading Time Taken Comments Blood Pressure 134/65 07/11/2012 2:04 PM AUTOMOBILE PARKER Pulse 72 07/11/2012 2:04 PM AUTOMOBILE PARKER Temperature 36.4 C (97.6 F) 04/06/2012 9:36 AM CDT Respiratory Rate 20 04/06/2012 9:36 AM CDT Oxygen Saturation 100% 04/06/2012 9:36 AM CDT Inhaled Oxygen Concentration - - Weight 72.6 kg (160 lb) 07/11/2012 2:04 PM AUTOMOBILE PARKER Height 182.9 cm (6') 07/11/2012 2:04 PM AUTOMOBILE PARKER Body Mass Index 21.7 07/11/2012 2:04 PM AUTOMOBILE PARKER Plan of Treatment Health Maintenance Due Date Last Done Comments DTAP/TDAP/TD VACCINES (1 - Tdap) 2015 HEPATITIS B VACCINES (1 of 3 - 19+ 3-dose series) 2015 INFLUENZA VACCINE (#1) 2024 HPV VACCINES Aged Out No longer eligi ble based on patient's age to complete this topic Medical Devices Implanted Type Area Quality Assurance Advisor Device Identifier Shelf Expiration Date Model / Serial / Lot Cap End Ti T40 Strdrv 0mm 04.003.000s - [id number] Implanted:Qty: 1 on 04/05/2012 by Anmol Gilliland MD at [facility] End Right: Femur SYNTHES STRATEC 07/23/2020 04.003.000 S / / [id number] Nail-Ex Retro/Ante 10mm 04.013.460s - [id number] Implanted:Qty: 1 on 04/05/2012 by Anmol Gilliland MD at [facility] Nail Right: Femur SYNTHES STRATEC 08/23/2019 04.013.460 S / / [id number] Screw Loc Strdr 5x38mm 04.005.528s - [id number] Implanted:Qty: 1 on 04/05/2012 by Anmol Gilliland MD at [facility] Screw Right: Femur SYNTHES STRATEC 04/23/2020 04.005.528 S / / [id number] Screw Lock T25 Ster 5.0x44mm 04.005.534s - [id number] Implanted:Qty: 1 on 04/05/2012 by Anmol Gilliland MD at [facility] Screw Right: Femur SYNTHES STRATEC 05/23/2019 04.005.534 S / / [id number] Insurance [place] Advance Directives For more information, please contact: [phone] * Full Code (Latest Code Status on File) Date Activated Date Inactivated Comments 04/05/2012 7:56 AM 04/06/2012 4:28 PM * Full Code Date Activated Date Inactivated Comments 04/04/2012 8:15 PM 04/05/2012 7:56 AM Care Teams Form Maker Relationship Specialty Start Date End Date García Cobos Sr., FNP [address] [place] [address] PCP - General NURSE PRACTITIONER 10/27/11
--- OUTSIDE RECORDS SUMMARY | 2025-02-21 21:20 | XMS_ITS | Encounter Summary ---
[facility] Address [address] [place] [address] Care Team Providers Care Aquarium Specialist Name Role Phone Chandrika Andres, García ACOSTA Primary Care Pro vider Encounter Details Date Type Department Care Team (Late st Contact Info) Description 10/27/2011 Ancillary Orders [facility] [address] [place] [address] García Cobos Sr., FNP [address] [place] [address] Pain Social History Tobacco Use Types Packs/Day Years Used Date Smoking Tobacco: Never Assessed Sex and Gender Information Value Date Recorded Sex Assigned at Not on file Legal Sex Male 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 No fat pad elevation is appreciated. Procedure Note Sebastian Jerez MD - 10/27/2011 Findings: AP oblique and lateral views of the right elbow show no acute fracture, dislocation, or deformity. No fat pad elevation is appreciated. IMPRESSION Impression: normal right elbow views García Cobos Sr., FIRST ASSISTANT MANAGER DIAGNOSTIC IMAGIN G ORDERABLES Final Result documented in this encounter Visit Diagnoses Diagnosis Pain Generalized pain Pain Generalized pain documented in this encounter Care Teams Aquarium Specialist Relationship Specialty Start Date End Date Chandrika Andres, KARLA Ragland [address] [place] [address] PCP - General NURSE PRACTITIONER 10/27/11 documented as of this encounter
--- NOTE | 2025-02-21 21:27 | CTR_ITS ---
PROCEDURE INFORMATION: Exam: CT Abdomen And Pelvis With Contrast Exam date and time: 02/21/2025 10:01 PM Age: 29 years old Clinical indication: Vomiting; Additional info: Nausea/vomiting; Hematemesis TECHNIQUE: Imaging protocol: Computed tomography of the abdomen and pelvis with contrast. Radiation optimization: All CT scans at this facility use at least one of these dose optimization techniques: automated exposure control; mA and/or kV adjustment per patient size (includes targeted exams where dose is matched to clinical indication); or iterative reconstruction. Contrast material: OMNI 350; Contrast volume: 100 ml; Contrast route: INTRAVENOUS (IV); COMPARISON: CT abdomen pelvis w con* [id number] 10/08/2022 11:35 AM RADIATION DOSE METRICS: Total DLP (mGy-cm): 605.82 FINDINGS: Liver: Mild fatty infiltration of the liver. No suspicious liver lesions. Gallbladder and biliary ducts: No gallbladder distension or inflammation. No calcified gallstones are apparent. No common bile duct abnormality is evident. Pancreas: No evidence of pancreatitis. No ductal dilation. Spleen: Spleen is within normal limits. Adrenal glands: Adrenal glands are within expected limits. Kidneys and ureters: No renal or ureteral calculi are identified. No hydronephrosis. Stomach and bowel: Small bowel is normal caliber. No obstruction. Large bowel within normal limits. No inflammatory wall thickening or abnormal bowel dilatation. Appendix: No evidence of appendicitis. Intraperitoneal space: No free air. No significant fluid collection. Vasculature: No abdominal aortic aneurysm. Lymph nodes: No pathologically enlarged lymph nodes by CT size criteria. Urinary bladder: Unremarkable as visualized. Reproductive: Unremarkable as visualized. Bones/joints: Postsurgical changes to the right femur. No acute osseous findings. Soft tissues: Unremarkable. CT/CT abdomen pelvis w con* [id number] IMPRESSION: 1. No acute abdominopelvic abnormalities. 2. Mild hepatic steatosis.
[2025-02-21] MEDS: lidocaine 2% viscous 15 ML, aluminum-mag hydrox-simethicon 30 ML, sucralfate oral liq 1 GM PO (21:39)
[2025-02-21] MEDS: ondansetron 2 mg/ML SDV 2 mL 4 MG IVP (21:40)
[2025-02-21] MEDS: LORazepam 1 MG/0.5 ML injection IVP (21:40)
[2025-02-21 21:41] LABS: Hematocrit 48.0 % (37-53); Hemoglobin 16.40 g/dL (11.27-16.99); Mean Corpuscular HGB Conc 34.2 g/dL (30-55); Mean Corpuscular Hemoglobin 29.2 pg (27-33); Mean Corpuscular Volume 85.4 fl (82-101); Nucleated Red Blood Cells % 0 %; Platelet Count 376 10^3/cmm (157-399); Red Blood Count 5.62 10^6/uL (3.85-5.65); White Blood Count 19.04 10^3/uL (3.29-11.43)
[2025-02-21 21:50] VITALS: BP 144/79; PULSE 53; RESP 18; O2SAT 96
[2025-02-21 21:58] LABS: Alanine Aminotransferase 48 U/L (0-41); Albumin Level 4.8 g/dL (3.5-5.2); Alkaline Phosphatase 69 U/L (40-130); Anion Gap 23.9 (5-19); Aspartate Amino Transferase 24 U/L (0-40); Blood Urea Nitrogen 14 mg/dL (6-20); Calcium 10.4 mg/dL (8.5-10.5); Carbon Dioxide 22 mmol/L (22-29); Chloride 99 mmol/L (98-107); Creatinine Clr Calc Pharmacy 154.8812; Globulin 3.4 g/dL (1.3-4.6); Glucose 181 mg/dL (65-115); Lipase 32 U/L (13-60); Osmolality Calculated 297 mOsm/kg (285-295); Potassium 3.9 mmol/L (3.5-5.1); Sodium 141 mmol/L (136-145); Total Protein 8.2 g/dL (6.6-8.7)
[2025-02-21] MEDS: iohexol 350 mg/mL 500 mL Btl (per mL) IV (22:04)
[2025-02-21 22:43] VITALS: BP 105/68; PULSE 72; O2SAT 95
--- NOTE | 2025-02-22 07:24 | DCPLANNER ---
messaged gen surg for er f/u
== END 2025-02-21 22:46 | disposition home or self-care (01) ==
PROVIDERS: Emergency Provider Physician Assistant
DX: K92.0 Hematemesis (principal); Z72.0 Tobacco use
CPT/HCPCS: 36415; 74177; 80053; 83690; 85025; 96374; 96375; 99285; J2060; J2405; J7030; J9999

== ENCOUNTER 2025-02-22 04:29 | Emergency (ER) | payer SELFPAY ==
[2025-02-22 04:36] VITALS: BP 171/97; PULSE 80; RESP 16; TEMP 36.5; O2SAT 100; BMI 25.1
--- OUTSIDE RECORDS SUMMARY | 2025-02-22 04:36 | XMS_ITS | Clinical Summary ---
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 Gender Identity Not on file Sexual Orientation [...] this topic Medical Devices Implanted Type Area Auto Inspector Device Identifier Shelf Expiration Date Model / Serial / Lot Cap End Ti T40 Strdrv 0mm 04.003.000s - [id number] Implanted:Qty: 1 on 04/05/2012 by Anmol Gilliland MD End Right: Femur SYNTHES STRATEC 07/23/2020 04.003.000 S / / [id number] Nail-Ex Retro/Ante 10mm 04.013.460s - [id number] Implanted:Qty: 1 on 04/05/2012 by Anmol Gilliland MD Nail Right: Femur SYNTHES STRATEC 08/23/2019 04.013.460 S / / [id number] Screw Loc Strdr 5x38mm 04.005.528s - [id number] Implanted:Qty: 1 on 04/05/2012 by Anmol Gilliland MD Screw Right: Femur SYNTHES STRATEC 04/23/2020 04.005.528 S / / [id number] Screw Lock T25 Ster 5.0x44mm 04.005.534s - [id number] Implanted:Qty: 1 on 04/05/2012 by Anmol Gilliland MD Screw Right: Femur SYNTHES STRATEC 05/23/2019 04.005.534 S / / [id number] Advance Directives For more information, please contact: [phone] * Full Code (Latest Code Status on File) Date Activated Date Inactivated Comments 03/31/2024 1:35 PM 03/31/2024 4:04 PM * Full Code Date Activated Date Inactivated Comments 03/31/2024 12:53 PM 03/31/2024 1:34 PM Care Teams Table Runner Relationship Specialty Start Date End Date Chandrika Andres, KARLA R[address] [place] [address] PCP - General NURSE PRACTITIONER 10/27/11
--- OUTSIDE RECORDS SUMMARY | 2025-02-22 04:36 | XMS_ITS | Clinical Summary ---
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 Gender Identity Not on file Sexual Orientation Not on file Occupation Industry Job Start Date Job End Date Not on file Not on file Not on file Not on file Last Filed Vital Signs Vital Sign Reading Time Taken Comments Blood Pressure 134/65 07/11/2012 2:04 PM DEAN OF FACULTY Pulse 72 07/11/2012 2:04 PM DEAN OF FACULTY Temperature 36.4 C (97.6 F) 04/06/2012 9:36 AM CDT Respiratory Rate 20 04/06/2012 9:36 AM CDT Oxygen Saturation 100% 04/06/2012 9:36 AM CDT Inhaled Oxygen Concentration - - Weight 72.6 kg (160 lb) 07/11/2012 2:04 PM DEAN OF FACULTY Height 182.9 cm (6') 07/11/2012 2:04 PM DEAN OF FACULTY Body Mass Index 21.7 07/11/2012 2:04 PM DEAN OF FACULTY Plan of Treatment Health Maintenance Due Date Last Done Comments DTAP/TDAP/TD VACCINES (1 - Tdap) 2015 HEPATITIS B VACCINES (1 of 3 - 19+ 3-dose series) 2015 INFLUENZA VACCINE (#1) 2024 HPV VACCINES Aged Out No longer eligi ble based on patient's age to complete this topic Medical Devices Implanted Type Area Exchange Teller Device Identifier Shelf Expiration Date Model / Serial / Lot Cap End Ti T40 Strdrv 0mm 04.003.000s - [id number] Implanted:Qty: 1 on 04/05/2012 by Anmol Gilliland MD at [facility] End Right: Femur SYNTHES STRATEC 07/23/2020 04.003.000 S / / [id number] Nail-Ex Retro/Ante 10mm 04.013.460s - [id number] Implanted:Qty: 1 on 04/05/2012 by Anmol Gilliland MD at [facility] Nail Right: Femur SYNTHES STRATEC 08/23/2019 04.013.460 S / / [id number] Screw Loc Strdr 5x38mm 04.005.528s - [id number] Implanted:Qty: 1 on 04/05/2012 by Anmol Gilliland MD at [facility] Screw Right: Femur SYNTHES STRATEC 04/23/2020 04.005.528 S / / [id number] Screw Lock T25 Ster 5.0x44mm 04.005.534s - [id number] Implanted:Qty: 1 on 04/05/2012 by Anmol Gilliland MD at [facility] Screw Right: Femur SYNTHES STRATEC 05/23/2019 04.005.534 S / / [id number] Insurance [place] Advance Directives For more information, please contact: [phone] * Full Code (Latest Code Status on File) Date Activated Date Inactivated Comments 04/05/2012 7:56 AM 04/06/2012 4:28 PM * Full Code Date Activated Date Inactivated Comments 04/04/2012 8:15 PM 04/05/2012 7:56 AM Care Teams External Relations Director Relationship Specialty Start Date End Date García Cobos Sr., FNP [address] [place] [address] PCP - General NURSE PRACTITIONER 10/27/11
--- OUTSIDE RECORDS SUMMARY | 2025-02-22 04:36 | XMS_ITS | Encounter Summary ---
Author Organization [facility] Address [address] [place] [address] Care Team Providers Care Senior Financial Reporting Analyst Name Role Phone KARLA Cobos Sr., Michael Dave Primary Care Pro vider Encounter Details Date Type Department Care Team (Late st Contact Info) Description 10/27/2011 Ancillary Orders [facility] [address] [place] [address] García Cobos Sr., FNP [address] [place] [address] Pain Social History Tobacco Use Types Packs/Day Years Used Date Smoking Tobacco: Never Assessed Sex and Gender Information Value Date Recorded Sex Assigned at Not on file 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
--- OUTSIDE RECORDS SUMMARY | 2025-02-22 04:36 | XMS_ITS | Encounter Summary ---
Author Organization [facility] Address [address] [place] [address] Care Team Providers Care Refinery Operator Helper Cracking Unit Name Role Phone Chandrika Andres, KARLA, García Cuevas Primary Care Pro vider Encounter Details Date Type Department Care Team (Late st Contact Info) Description 04/13/2012 Ancillary Orders [facility] [address] [place] [address] Brandon Lim MD [address] [place] [address] Trauma Social History Tobacco Use Types Packs/Day Years Used Date Smoking Tobacco: Never Alcohol Use Standard Drinks/Week Comments Yes 0.8 (1 standard drink = 0.6 oz p ure alcohol) Sex and Gender Information Value Date Recorded Sex Assigned at Not on file 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 Exam: XR FEMUR 2 VW RIGHT Date: [...] - 04/14/2012 ATTENTION: This replaces accession number [id number]. Exam: XR FEMUR 2 VW RIGHT Date: [...] site documented in this encounter Care Teams Refinery Operator Helper Cracking Unit Relationship Specialty Start Date End Date Chandrika Andres, KARLA R[address] [place] [address] PCP - General NURSE PRACTITIONER 10/27/11 documented as of this encounter
--- OUTSIDE RECORDS SUMMARY | 2025-02-22 04:36 | XMS_ITS | Encounter Summary ---
Author Organization [facility] Address [address] [place] [address] Care Team Providers Care E Tailer Name Role Phone Chandrika Andres, García ACOSTA Primary Care Pro vider Encounter Details Date Type Department Care Team (Late st Contact Info) Description 10/27/2011 Ancillary Orders [email or web address] [address] [place] [address] García Cobos Sr., FNP [address] [place] [address] Pain Social History Tobacco Use Types Packs/Day Years Used Date Smoking Tobacco: Never Assessed Sex and Gender Information Value Date Recorded Sex Assigned at Not on file Legal Sex Male 1:18 PM CLOTH DESIGNER Gender Identity Not on file Sexual Orientation Not on file documented as of this encounter Plan of Treatment Not on file documented as of this encounter Results * XR ELBOW 3+ VW RIGHT (10/27/2011 1:09 PM CLOTH DESIGNER) Anatomical Region Laterality Modality Upper Extremity Computed Radiogr aphy 10/27/2011 1:09 PM CLOTH DESIGNER Impressions 10/27/2011 2:07 PM CLOTH DESIGNER Impression: unremarkable as visualized Narrative 10/27/2011 2:07 PM CLOTH DESIGNER Findings: AP and lateral views of the [...] pain documented in this encounter Care Teams E Tailer Relationship Specialty Start Date End Date Chandrika Andres, KARLA Ragland [address] [place] [address] PCP - General NURSE PRACTITIONER 10/27/11 documented as of this encounter
--- OUTSIDE RECORDS SUMMARY | 2025-02-22 04:36 | XMS_ITS | Encounter Summary ---
Author Organization [employer] [employer] [facility] Address 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
--- OUTSIDE RECORDS SUMMARY | 2025-02-22 04:36 | XMS_ITS | Encounter Summary ---
Author Organization [facility] Address [address] [place] [address] Care Team Providers Care Engine Assembler Name Role Phone Chandrika Andres, García ACOSTA Primary Care Pro vider Encounter Details Date Type Department Care Team (Late st Contact Info) Description 10/27/2011 Ancillary Orders [facility] [address] [place] [address] García Cobos Sr., FNP [address] [place] [address] Pain Social History Tobacco Use Types Packs/Day Years Used Date Smoking Tobacco: Never Assessed Sex and Gender Information Value Date Recorded Sex Assigned at Not on file 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 Gender Identity Not on file Sexual Orientation Not on file documented as of this encounter Plan of Treatment Not on file documented as of this encounter Results * XR FOREARM 2 VW RIGHT (10/27/2011 1:10 PM FIELD ARTILLERY OPERATIONS MAN) Anatomical Region Laterality Modality Upper Extremity Computed Radiogr aphy 10/27/2011 1:09 PM FIELD ARTILLERY OPERATIONS MAN Impressions 10/27/2011 2:10 PM FIELD ARTILLERY OPERATIONS MAN Impression: normal right elbow views Narrative 10/27/2011 2:10 PM FIELD ARTILLERY OPERATIONS MAN Findings: AP oblique and lateral views of the right elbow show no acute fracture, dislocation, or deformity. No fat pad elevation is appreciated. Procedure Note Sebastian Jerez MD - 10/27/2011 Findings: AP oblique and lateral views of the right elbow show no acute fracture, dislocation, or deformity. No fat pad elevation is appreciated. IMPRESSION Impression: normal right elbow views García Cobos Sr., TOOL MECHANIC DIAGNOSTIC IMAGIN G ORDERABLES Final Result documented in this encounter Visit Diagnoses Diagnosis Pain Generalized pain Pain Generalized pain documented in this encounter Care Teams Engine Assembler Relationship Specialty Start Date End Date Chandrika Andres, KARLA Ragland [address] [place] [address] PCP - General NURSE PRACTITIONER 10/27/11 documented as of this encounter
[2025-02-22] MEDS: pantoprazole 40 mg SDV 80 MG IVP (05:03)
[2025-02-22] MEDS: diphenhydrAMINE 50 mg/mL SDV 1mL IVP (05:03)
[2025-02-22] MEDS: haloperidol inj 5 mg/mL INJ 1 mL 10 MG IVP (05:03)
--- NOTE | 2025-02-22 05:09 | W.ED.GIBLEED ---
Documented by User: Brian Sanchez MD 02/22/25 05:13 HPI - GI Bleed General: Chief complaint: GI Bleed Stated complaint: Vomiting Blood Time Seen by Provider: 02/22/25 04:37 History of Present Illness: Pt is a generally well-appearing 29-year-old male who presents with recurrent episodes of vomiting blood, described as initially reddish-brown and then becoming more red with continued emesis. Reports a decent amount of blood with each episode. Pt notes pain primarily in the stomach area, with some discomfort possibly in the esophagus. Denies hematochezia or melena. Pt has experienced similar symptoms in the past; prior evaluation included endoscopy after a course of medication, which showed irritation but was inconclusive for ulcer, and no significant findings in the esophagus were noted. No known history of liver disease. Denies excessive alcohol use. Pt reports a decent amount of pain and some nausea at present. He was seen less than 24 hours ago in the emergency department for the same and was told to come back to the emergency department if he continues to have bloody emesis. He has been seen over the last several years multiple times for hyperemesis due to cannabinoid use. He admits to ongoing use. CT scan of the abdomen was performed during last visit several hours ago and no acute processes were found. No active bleeding noted. labs showed stable hemoglobin level. Related Data Previous Rx's ?Medication ?Instructions ?Recorded ondansetron 4 mg disintegrating 4 mg PO Q6H PRN nausea and 02/21/25 tablet vomiting #14 tabs pantoprazole 40 mg tablet,delayed 40 mg PO DAILY 4 weeks #42 tabs 02/21/25 release (Protonix) sucralfate 1 gram tablet (Carafate) 1 g PO TID 2 weeks #42 tabs 02/21/25 lorazepam 2 mg tablet (Ativan) 2 mg buccal Q8H PRN nausea and 02/22/25 vomiting #10 tabs olanzapine 10 mg disintegrating 10 mg PO Q8H PRN nausea and 02/22/25 tablet vomiting 5 days #14 tabs Allergies Allergy/AdvReac Type Severity Reaction Status Date / Time shellfish derived Allergy ADR-Drowsy Verified 02/22/25 04:38 [facility] ED PFS: Medical History No pertinent family history Surgical History No pertinent past surgical history Family History Denies family history of Diabetes Dementia Hypertension Social History Smoking and tobacco/nicotine status: current some day tobacco/nicotine user Alcohol intake: current Alcohol intake frequency: few times a week Substance/Drug Use: current Substance/Drug use frequency: few times a week Physical Exam Const: COMMON NORMALS: no acute distress, patient oriented x3 and alert HENMT: COMMON NORMALS: normocephalic and atraumatic HEAD & SCALP: normocephalic and atraumatic Eye: COMMON NORMALS: Equal, round and reactive pupils present, EOMs intact bilaterally and no scleral icterus PUPIL: Yes Equal, round and reactive pupils present Resp: COMMON NORMALS: normal respiratory effort and No retractions Cardio: COMMON NORMALS: regular rate, regular rhythm and No murmurs present (Cardio) RATE: regular rate RHYTHM: regular rhythm GI: COMMON NORMALS: Normal to inspection, nondistended, normoactive bowel sounds present and Soft to palpation PALPATION: Yes Soft to palpation OTHER: Mild tenderness to palpation in the epigastrium Neuro: COMMON NORMALS: patient oriented x3 SENSORIUM/ORIENTATION: Yes alert Skin: COMMON NORMALS: no rashes or lesions noted GENERAL SKIN EXAM: no rashes or lesions noted Course Vital Signs: Vital signs: Vital Signs Temperature 97.7 F 02/22/25 04:36 Pulse Rate 80 02/22/25 04:36 Respiratory Rate 16 02/22/25 04:36 Blood Pressure 171/97 02/22/25 04:36 Pulse Oximetry 100 02/22/25 04:36 Oxygen Delivery Me thod Room Air 02/22/25 04:36 MDM - GI Bleed Lab Data 02/22/25 05:04 02/22/25 05:04 Laboratory Results WBC 15.80 10^3/uL (3.29-11.43) H 02/22/25 05:04 RBC 5.39 10^6/uL (3.85-5.65) 02/22/25 05:04 Hgb 15.70 g/dL (11.27-16.99) 02/22/25 05:04 Hct 46.0 % (37-53) 02/22/25 05:04 MCV 85.3 fl (82-101) 02/22/25 05:04 MCH 29.1 pg (27-33) 02/22/25 05:04 MCHC 34.1 g/dL (30-55) 02/22/25 05:04 RDW 13.2 % (12.1-15.1) 02/22/25 05:04 Plt Count 330 10^3/cmm (157-399) 02/22/25 05:04 MPV 9.4 fL (7.4-10.4) 02/22/25 05:04 Neut % (Auto) 85.2 % 02/22/25 05:04 Lymph % (Auto) 8.5 % 02/22/25 05:04 [place] % (Auto) 5.6 % 02/22/25 05:04 Eos % (Auto) 0.2 % 02/22/25 05:04 Baso % (Auto) 0.1 % 02/22/25 05:04 Neut # (Auto) 13.45 10^3/uL (1.8-7.7) H 02/22/25 05:04 Lymph # (Auto) 1.3 10^3/uL (0.8-4.8) 02/22/25 05:04 [place] # (Auto) 0.9 10^3/uL (0.2-0.9) 02/22/25 05:04 Eos # (Auto) 0.0 10^3/uL (0.0-0.8) 02/22/25 05:04 Baso # (Auto) 0.0 10^3/uL (0.0-0.1) 02/22/25 05:04 Nucleated RBC % (auto) 0 % 02/22/25 05:04 Nucleated RBCs # 0.0 /100WBC 02/22/25 05:04 Sodium 141 mmol/L (136-145) 02/22/25 05:04 Potassium 3.8 mmol/L (3.5-5.1) 02/22/25 05:04 Chloride 99 mmol/L (98-107) 02/22/25 05:04 Carbon Dioxide 23 mmol/L (22-29) 02/22/25 05:04 Anion Gap 22.8 (5-19) H 02/22/25 05:04 BUN 13 mg/dL (6-20) 02/22/25 05:04 Creatinine 0.8 mg/dL (0.7-1.2) 02/22/25 05:04 GFR Calculation 115.1 mL/min (90-130) 02/22/25 05:04 Glucose 165 mg/dL (65-115) H 02/22/25 05:04 Calculated Osmolality 296 mOsm/kg (285-295) H 02/22/25 05:04 Calcium 9.9 mg/dL (8.5-10.5) 02/22/25 05:04 Total Bilirubin 0.7 mg/dL (0.15-1.2) 02/22/25 05:04 AST 22 U/L (0-40) 02/22/25 05:04 ALT 43 U/L (0-41) H 02/22/25 05:04 Alkaline Phosphatase 65 U/L (40-130) 02/22/25 05:04 Total Protein 7.9 g/dL (6.6-8.7) 02/22/25 05:04 Albumin 4.7 g/dL (3.5-5.2) 02/22/25 05:04 Globulin 3.2 g/dL (1.3-4.6) 02/22/25 05:04 Discharge Plan Discharge Patient Disposition: Home Clinical Impression: Cannabinoid hyperemesis syndrome Condition: Stable Prescriptions: New olanzapine 10 mg tablet,disintegrating 10 mg PO Q8H PRN (Reason: nausea and vomiting) 5 Days Qty: 14 0RF lorazepam [Ativan] 2 mg tablet 2 mg buccal Q8H PRN (Reason: nausea and vomiting) Qty: 10 0RF Discontinued lorazepam [Ativan] 2 mg tablet 1 mg buccal TID PRN (Reason: nausea and vomiting) Qty: 10 0RF No Action pantoprazole [Protonix] 40 mg tablet,delayed release (DR/EC) 40 mg PO DAILY 28 Days Qty: 42 0RF Rx Instructions: Take twice daily x 2 weeks. Then daily thereafter. sucralfate [Carafate] 1 gram tablet 1 g PO TID 14 Days Qty: 42 0RF ondansetron 4 mg tablet,disintegrating 4 mg PO Q6H PRN (Reason: nausea and vomiting) Qty: 14 0RF Discharge Orders: Discharge ED (Routine); Ordered 02/22/25 Ordered By: Georges Galloway Discharge Diet: Clear Liquid Discharge Activity: Increase activity as tolerated Patient Instructions: Opioid Safety, Pain Management, Patient Portal & Roxanna Instructions Activity Restrictions/Additional Instructions: Thank you for choosing [facility] for your healthcare needs today. It is very important that you follow up as instructed or that you return to the Emergency Department should you have concerns or if your condition changes or worsens in any way. You were seen in the emergency room with persistent nausea and vomiting. Your symptoms improved with medications given you were given Ativan and olanzapine to use as needed for the nausea and vomiting. Continue to use the previously prescribed pantoprazole and sucralfate. Bleeding seen is likely caused by repetitive vomiting. Repetitive vomiting is due to use of THC products recommend you decrease your use avoid edibles and vape pens as they seem to be more frequent precipitators of these types of episodes. Print Language: Solomon Islander Coding Level of Care Code ED Insurance Specialist for Chg Fwd Documented by User: Georges Galloway DO 02/22/25 06:32 HPI - GI Bleed General: Chief complaint: GI Bleed Stated complaint: Vomiting Blood Time Seen by Provider: 02/22/25 04:37 Related Data Previous Rx's ?Medication ?Instructions ?Recorded ondansetron 4 mg disintegrating 4 mg PO Q6H PRN nausea and 02/21/25 tablet vomiting #14 tabs pantoprazole 40 mg tablet,delayed 40 mg PO DAILY 4 weeks #42 tabs 02/21/25 release (Protonix) sucralfate 1 gram tablet (Carafate) 1 g PO TID 2 weeks #42 tabs 02/21/25 lorazepam 2 mg tablet (Ativan) 2 mg buccal Q8H PRN nausea and 02/22/25 vomiting #10 tabs olanzapine 10 mg disintegrating 10 mg PO Q8H PRN nausea and 02/22/25 tablet vomiting 5 days #14 tabs Allergies Allergy/AdvReac Type Severity Reaction Status Date / Time shellfish derived Allergy ADR-Drowsy Verified 02/22/25 04:38 PFSH ED PFSH: Medical History No pertinent family history Surgical History No pertinent past surgical history Family History Denies family history of Diabetes Dementia Hypertension Social History Smoking and tobacco/nicotine status: current some day tobacco/nicotine user Alcohol intake: current Alcohol intake frequency: few times a week Substance/Drug Use: current Substance/Drug use frequency: few times a week Course Vital Signs: Vital signs: Vital Signs Temperature 97.7 F 02/22/25 04:36 Pulse Rate 80 02/22/25 04:36 Respiratory Rate 16 02/22/25 04:36 Blood Pressure 171/97 02/22/25 04:36 Pulse Oximetry 100 02/22/25 04:36 Oxygen Delivery Me thod Room Air 02/22/25 04:36 MDM - GI Bleed Medical Decision Making Care assumed at change of shift. Hemoglobin stable at 15 7. Symptoms resolved after treatment with haloperidol. Suspect patient's symptoms are due largely to hyperemesis cannabinoid syndrome. Should continue to use the pantoprazole and sucralfate that was prescribed earlier. Also given Ativan and olanzapine to use as needed for persistent nausea and vomiting. Patient has previously had endoscopy which was unremarkable. Has had multiple episodes like this in the past as well. Lab Data 02/22/25 05:04 02/22/25 05:04 Laboratory Results WBC 15.80 10^3/uL (3.29-11.43) H 02/22/25 05:04 RBC 5.39 10^6/uL (3.85-5.65) 02/22/25 05:04 Hgb 15.70 g/dL (11.27-16.99) 02/22/25 05:04 Hct 46.0 % (37-53) 02/22/25 05:04 MCV 85.3 fl (82-101) 02/22/25 05:04 MCH 29.1 pg (27-33) 02/22/25 05:04 MCHC 34.1 g/dL (30-55) 02/22/25 05:04 RDW 13.2 % (12.1-15.1) 02/22/25 05:04 Plt Count 330 10^3/cmm (157-399) 02/22/25 05:04 MPV 9.4 fL (7.4-10.4) 02/22/25 05:04 Neut % (Auto) 85.2 % 02/22/25 05:04 Lymph % (Auto) 8.5 % 02/22/25 05:04 [place] % (Auto) 5.6 % 02/22/25 05:04 Eos % (Auto) 0.2 % 02/22/25 05:04 Baso % (Auto) 0.1 % 02/22/25 05:04 Neut # (Auto) 13.45 10^3/uL (1.8-7.7) H 02/22/25 05:04 Lymph # (Auto) 1.3 10^3/uL (0.8-4.8) 02/22/25 05:04 [place] # (Auto) 0.9 10^3/uL (0.2-0.9) 02/22/25 05:04 Eos # (Auto) 0.0 10^3/uL (0.0-0.8) 02/22/25 05:04 Baso # (Auto) 0.0 10^3/uL (0.0-0.1) 02/22/25 05:04 Nucleated RBC % (auto) 0 % 02/22/25 05:04 Nucleated RBCs # 0.0 /100WBC 02/22/25 05:04 Sodium 141 mmol/L (136-145) 02/22/25 05:04 Potassium 3.8 mmol/L (3.5-5.1) 02/22/25 05:04 Chloride 99 mmol/L (98-107) 02/22/25 05:04 Carbon Dioxide 23 mmol/L (22-29) 02/22/25 05:04 Anion Gap 22.8 (5-19) H 02/22/25 05:04 BUN 13 mg/dL (6-20) 02/22/25 05:04 Creatinine 0.8 mg/dL (0.7-1.2) 02/22/25 05:04 GFR Calculation 115.1 mL/min (90-130) 02/22/25 05:04 Glucose 165 mg/dL (65-115) H 02/22/25 05:04 Calculated Osmolality 296 mOsm/kg (285-295) H 02/22/25 05:04 Calcium 9.9 mg/dL (8.5-10.5) 02/22/25 05:04 Total Bilirubin 0.7 mg/dL (0.15-1.2) 02/22/25 05:04 AST 22 U/L (0-40) 02/22/25 05:04 ALT 43 U/L (0-41) H 02/22/25 05:04 Alkaline Phosphatase 65 U/L (40-130) 02/22/25 05:04 Total Protein 7.9 g/dL (6.6-8.7) 02/22/25 05:04 Albumin 4.7 g/dL (3.5-5.2) 02/22/25 05:04 Globulin 3.2 g/dL (1.3-4.6) 02/22/25 05:04 All radiology interpretation(s) finalized by discharge Discharge Plan Discharge Patient Disposition: Home Clinical Impression: Cannabinoid hyperemesis syndrome Condition: Stable Prescriptions: New olanzapine 10 mg tablet,disintegrating 10 mg PO Q8H PRN (Reason: nausea and vomiting) 5 Days Qty: 14 0RF lorazepam [Ativan] 2 mg tablet 2 mg buccal Q8H PRN (Reason: nausea and vomiting) Qty: 10 0RF Discontinued lorazepam [Ativan] 2 mg tablet 1 mg buccal TID PRN (Reason: nausea and vomiting) Qty: 10 0RF No Action pantoprazole [Protonix] 40 mg tablet,delayed release (DR/EC) 40 mg PO DAILY 28 Days Qty: 42 0RF Rx Instructions: Take twice daily x 2 weeks. Then daily thereafter. sucralfate [Carafate] 1 gram tablet 1 g PO TID 14 Days Qty: 42 0RF ondansetron 4 mg tablet,disintegrating 4 mg PO Q6H PRN (Reason: nausea and vomiting) Qty: 14 0RF Discharge Orders: Discharge ED (Routine); Ordered 02/22/25 Ordered By: Georges Galloway Discharge Diet: Clear Liquid Discharge Activity: Increase activity as tolerated Patient Instructions: Opioid Safety, Pain Management, Patient Portal & Roxanna Instructions Activity Restrictions/Additional Instructions: Thank you for choosing [facility] for your healthcare needs today. It is very important that you follow up as instructed or that you return to the Emergency Department should you have concerns or if your condition changes or worsens in any way. You were seen in the emergency room with persistent nausea and vomiting. Your symptoms improved with medications given you were given Ativan and olanzapine to use as needed for the nausea and vomiting. Continue to use the previously prescribed pantoprazole and sucralfate. Bleeding seen is likely caused by repetitive vomiting. Repetitive vomiting is due to use of THC products recommend you decrease your use avoid edibles and vape pens as they seem to be more frequent precipitators of these types of episodes. Print Language: [place] Islander Coding Level of Care Code ED Insurance Specialist for Jose Patel
[2025-02-22 05:12] LABS: Hematocrit 46.0 % (37-53); Hemoglobin 15.70 g/dL (11.27-16.99); Mean Corpuscular HGB Conc 34.1 g/dL (30-55); Mean Corpuscular Hemoglobin 29.1 pg (27-33); Mean Corpuscular Volume 85.3 fl (82-101); Nucleated Red Blood Cells % 0 %; Platelet Count 330 10^3/cmm (157-399); Red Blood Count 5.39 10^6/uL (3.85-5.65); White Blood Count 15.80 10^3/uL (3.29-11.43)
[2025-02-22 05:25] LABS: Alanine Aminotransferase 43 U/L (0-41); Albumin Level 4.7 g/dL (3.5-5.2); Alkaline Phosphatase 65 U/L (40-130); Anion Gap 22.8 (5-19); Aspartate Amino Transferase 22 U/L (0-40); Blood Urea Nitrogen 13 mg/dL (6-20); Calcium 9.9 mg/dL (8.5-10.5); Carbon Dioxide 23 mmol/L (22-29); Chloride 99 mmol/L (98-107); Creatinine Clr Calc Pharmacy 151.3532; Globulin 3.2 g/dL (1.3-4.6); Glucose 165 mg/dL (65-115); Osmolality Calculated 296 mOsm/kg (285-295); Potassium 3.8 mmol/L (3.5-5.1); Sodium 141 mmol/L (136-145); Total Protein 7.9 g/dL (6.6-8.7)
[2025-02-22 06:37] VITALS: BP 143/74; PULSE 82; RESP 16; O2SAT 95
== END 2025-02-22 06:42 | disposition home or self-care (01) ==
PROVIDERS: Student in an Organized Health Care Education/Training Program; Emergency Provider Family Medicine
DX: R11.10 Vomiting, unspecified (principal); F12.90 Cannabis use, unspecified, uncomplicated; Z72.0 Tobacco use
CPT/HCPCS: 36415; 80053; 85025; 96361; 96374; 96375; 99285; J1200; J1630; J2470; J7030

== ENCOUNTER 2025-02-23 11:09 | Emergency (ER) | payer SELFPAY ==
--- OUTSIDE RECORDS SUMMARY | 2025-02-23 11:17 | XMS_ITS | Clinical Summary ---
Author Organization [facility] Address [address] [place] [address] Phone Care Team Providers Care Activity Director Name Role Phone Chandrika Andres, KARLA, [...] on file Legal Sex Male 1:18 PM SANITOR Gender Identity Not on file Sexual Orientation Not on file Occupation Industry Job Start Date Job End Date Not on file Not on file Not on file Not on file Last Filed Vital Signs Vital Sign Reading Time Taken Comments Blood Pressure 134/65 07/11/2012 2:04 PM SANITOR Pulse 72 07/11/2012 2:04 PM SANITOR Temperature 36.4 C (97.6 F) 04/06/2012 9:36 AM CDT Respiratory Rate 20 04/06/2012 9:36 AM CDT Oxygen Saturation 100% 04/06/2012 9:36 AM CDT Inhaled Oxygen Concentration - - Weight 72.6 kg (160 lb) 07/11/2012 2:04 PM SANITOR Height 182.9 cm (6') 07/11/2012 2:04 PM SANITOR Body Mass Index 21.7 07/11/2012 2:04 PM SANITOR Plan of Treatment Health Maintenance Due Date Last Done Comments DTAP/TDAP/TD VACCINES (1 - Tdap) 2015 HEPATITIS B VACCINES (1 of 3 - 19+ 3-dose series) 2015 INFLUENZA VACCINE (#1) 2024 HPV VACCINES Aged Out No longer eligi ble based on patient's age to complete this topic Medical Devices Implanted Type Area Tube Fitter Device Identifier Shelf Expiration Date Model / Serial / Lot Cap End Ti T40 Strdrv 0mm 04.003.000s - [id number] Implanted:Qty: 1 on 04/05/2012 by Anmol Gilliland MD at [facility] End Right: Femur SY[employer]ES [employer]ATEC 07/23/2020 04.003.000 S / / [id number] Nail-Ex Retro/Ante 10mm 04.013.460s - [id number] Implanted:Qty: 1 on 04/05/2012 by Anmol Gilliland MD at [facility] Nail Right: Femur [employer]ES [employer]ATEC 08/23/2019 04.013.460 S / / [id number] Screw Loc Strdr 5x38mm 04.005.528s - [id number] Implanted:Qty: 1 on 04/05/2012 by Anmol Gilliland MD at [facility] Screw Right: Femur [employer]ES [employer]ATEC 04/23/2020 04.005.528 S / / [id number] Screw Lock T25 Ster 5.0x44mm 04.005.534s - [id number] Implanted:Qty: 1 on 04/05/2012 by Anmol Gilliland MD at [facility] Screw Right: Femur [employer]ES [employer]ATEC 05/23/2019 04.005.534 S / / [id number] [place] Advance Directives For more information, please contact: [phone] * Full Code (Latest Code Status on File) Date Activated Date Inactivated Comments 04/05/2012 7:56 AM 04/06/2012 4:28 PM * Full Code Date Activated Date Inactivated Comments 04/04/2012 8:15 PM 04/05/2012 7:56 AM Care Teams Activity Director Relationship Specialty Start Date End Date García Cobos Sr., FNP [address] [place] [address] PCP - General NURSE PRACTITIONER 10/27/11
--- OUTSIDE RECORDS SUMMARY | 2025-02-23 11:17 | XMS_ITS | Encounter Summary ---
Author Organization [facility] Address [address] [place] [address] Care Team Providers Care Dental Insurance Biller Name Role Phone Chandrika Andres, García ACOSTA Primary Care Pro vider Encounter Details Date Type Department Care Team (Late st Contact Info) Description 10/27/2011 Ancillary Orders [facility] [address] [place] [address] García Cobos Sr., FNP [address] [place] [address] Pain Social History Tobacco Use Types Packs/Day Years Used Date Smoking Tobacco: Never Assessed Sex and Gender Information Value Date Recorded Sex Assigned at Not on file Legal Sex Male 1:18 PM MANAGER READING Gender Identity Not on file Sexual Orientation Not on file documented as of this encounter Plan of Treatment Not on file documented as of this encounter Results * XR ELBOW 3+ VW RIGHT (10/27/2011 1:09 PM MANAGER READING) Anatomical Region Laterality Modality Upper Extremity Computed Radiogr aphy 10/27/2011 1:09 PM MANAGER READING Impressions 10/27/2011 2:07 PM MANAGER READING Impression: unremarkable as visualized Narrative 10/27/2011 2:07 PM MANAGER READING Findings: AP and lateral views of the [...] pain documented in this encounter Care Teams Dental Insurance Biller Relationship Specialty Start Date End Date Chandrika Andres, KARLA Ragland [address] [place] [address] PCP - General NURSE PRACTITIONER 10/27/11 documented as of this encounter
--- OUTSIDE RECORDS SUMMARY | 2025-02-23 11:18 | XMS_ITS | Encounter Summary ---
Author Organization [employer] [facility] Address [address] [place] [address] Care Team Providers Care Insurance Sales Associate Name Role Phone Chandrika Andres, KARLA, García Cuevas Primary Care Pro vider Encounter Details Date Type Department Care Team (Late st Contact Info) Description 04/13/2012 Ancillary Orders [facility] [address] [place] [address] Brandon Lim MD [address] [place] [address] Trauma Social History Tobacco Use Types Packs/Day Years Used Date Smoking Tobacco: Never Alcohol Use Standard Drinks/Week Comments Yes 0.8 (1 standard drink = 0.6 oz p ure alcohol) Sex and Gender Information Value Date Recorded Sex Assigned at Not on file 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 Exam: XR FEMUR 2 VW RIGHT Date: [...] - 04/14/2012 ATTENTION: This replaces accession number [id number]. Exam: XR FEMUR 2 VW RIGHT Date: [...] site documented in this encounter Care Teams Insurance Sales Associate Relationship Specialty Start Date End Date Chandrika Andres, KARLA [address] [place] [address] PCP - General NURSE PRACTITIONER 10/27/11 documented as of this encounter
--- OUTSIDE RECORDS SUMMARY | 2025-02-23 11:18 | XMS_ITS | Encounter Summary ---
Author Organization [employer] [facility] Address [address] [place] [address] Care Team Providers Care Server Programmer Name Role Phone KARLA Cobos Sr., Michael Dave Primary Care Pro vider Encounter Details Date Type Department Care Team (Late st Contact Info) Description 10/27/2011 Ancillary Orders [facility] [address] [place] [address] García Cobos Sr., FNP [address] [place] [address] Pain Social History Tobacco Use Types Packs/Day Years Used Date Smoking Tobacco: Never Assessed Sex and Gender Information Value Date Recorded Sex Assigned at Not on file Legal Sex Male 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
--- OUTSIDE RECORDS SUMMARY | 2025-02-23 11:18 | XMS_ITS | Clinical Summary ---
Author Organization 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 Gender Identity Not on file Sexual [...] this topic Medical Devices Implanted Type Area Coutierier Device Identifier Shelf Expiration Date Model / Serial / Lot Cap End Ti T40 Strdrv 0mm 04.003.000s - [id number] Implanted:Qty: 1 on 04/05/2012 by Anmol Gilliland MD End Right: Femur SY[employer]ES [employer]ATEC 07/23/2020 04.003.000 S / / [id number] Nail-Ex Retro/Ante 10mm 04.013.460s - [id number] Implanted:Qty: 1 on 04/05/2012 by Anmol Gilliland MD Nail Right: Femur [employer]AT[employer] 08/23/2019 04.013.460 S / / [id number] Screw Loc Strdr 5x38mm 04.005.528s - [id number] Implanted:Qty: 1 on 04/05/2012 by Anmol Gilliland MD Screw Right: Femur [employer]ATEC 04/23/2020 04.005.528 S / / [id number] Screw Lock T25 Ster 5.0x44mm 04.005.534s - [id number] Implanted:Qty: 1 on 04/05/2012 by Anmol Gilliland MD Screw Right: Femur [employer]ES [employer]ATEC 05/23/2019 04.005.534 S / / [id number] Advance Directives For more information, please contact: [phone] * Full Code (Latest Code Status on File) Date Activated Date Inactivated Comments 03/31/2024 1:35 PM 03/31/2024 4:04 PM * Full Code Date Activated Date Inactivated Comments 03/31/2024 12:53 PM 03/31/2024 1:34 PM Care Teams Leave Manager Relationship Specialty Start Date End Date Chandrika Andres, KARLA R[address] [place] [address] PCP - General NURSE PRACTITIONER 10/27/11
--- OUTSIDE RECORDS SUMMARY | 2025-02-23 11:18 | XMS_ITS | Encounter Summary ---
Author Organization [employer] [facility] Address [address] [place] [address] Care Team Providers Care Buyer Grain Name Role Phone Chandrika Andres, García ACOSTA Primary Care Pro vider Encounter Details Date Type Department Care Team (Late st Contact Info) Description 10/27/2011 Ancillary Orders [facility] [employer] [facility] [address] [place] [address] García Cobos Sr., FNP [address] [place] [address] Pain Social History Tobacco Use Types Packs/Day Years Used Date Smoking Tobacco: Never Assessed Sex and Gender Information Value Date Recorded Sex Assigned at Not on file 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 Gender Identity Not on file Sexual Orientation Not on file documented as of this encounter Plan of Treatment Not on file documented as of this encounter Results * XR FOREARM 2 VW RIGHT (10/27/2011 1:10 PM EXTRUSION MACHINE OPERATOR) Anatomical Region Laterality Modality Upper Extremity Computed Radiogr aphy 10/27/2011 1:09 PM EXTRUSION MACHINE OPERATOR Impressions 10/27/2011 2:10 PM EXTRUSION MACHINE OPERATOR Impression: normal right elbow views Narrative 10/27/2011 2:10 PM EXTRUSION MACHINE OPERATOR Findings: AP oblique and lateral views of the right elbow show no acute fracture, dislocation, or deformity. No fat pad elevation is appreciated. Procedure Note Sebastian Jerez MD - 10/27/2011 Findings: AP oblique and lateral views of the right elbow show no acute fracture, dislocation, or deformity. No fat pad elevation is appreciated. IMPRESSION Impression: normal right elbow views García Cobos Sr., ARM REST BUILDER DIAGNOSTIC IMAGIN G ORDERABLES Final Result documented in this encounter Visit Diagnoses Diagnosis Pain Generalized pain Pain Generalized pain documented in this encounter Care Teams Buyer Grain Relationship Specialty Start Date End Date Chandrika Andres, KARLA Ragland [address] [place] [address] PCP - General NURSE PRACTITIONER 10/27/11 documented as of this encounter
--- OUTSIDE RECORDS SUMMARY | 2025-02-23 11:18 | XMS_ITS | Encounter Summary ---
Author Organization [employer] Address 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
[2025-02-23 11:46] VITALS: BP 145/113; PULSE 130; RESP 19; TEMP 36.7; O2SAT 97; BMI 25.7
[2025-02-23 12:26] LABS: Hematocrit 46.4 % (37-53); Hemoglobin 15.30 g/dL (11.27-16.99); Mean Corpuscular HGB Conc 33.0 g/dL (30-55); Mean Corpuscular Hemoglobin 29.0 pg (27-33); Mean Corpuscular Volume 88.0 fl (82-101); Nucleated Red Blood Cells % 0 %; Platelet Count 376 10^3/cmm (157-399); Red Blood Count 5.27 10^6/uL (3.85-5.65); White Blood Count 17.41 10^3/uL (3.29-11.43)
[2025-02-23] MEDS: diphenhydrAMINE 50 mg/mL SDV 1mL 25 MG IVP (12:33)
[2025-02-23] MEDS: LORazepam 1 MG/0.5 ML injection IVP (12:33)
[2025-02-23 12:39] LABS: Lactic Sepsis W/Reflex 4.5 mmol/L (0.5-2.2)
[2025-02-23 12:43] LABS: Alanine Aminotransferase 40 U/L (0-41); Albumin Level 4.7 g/dL (3.5-5.2); Alkaline Phosphatase 62 U/L (40-130); Anion Gap 22.2 (5-19); Aspartate Amino Transferase 33 U/L (0-40); Blood Urea Nitrogen 16 mg/dL (6-20); Calcium 9.9 mg/dL (8.5-10.5); Carbon Dioxide 22 mmol/L (22-29); Chloride 99 mmol/L (98-107); Creatinine Clr Calc Pharmacy 122.4938; Globulin 3.1 g/dL (1.3-4.6); Glucose 161 mg/dL (65-115); Osmolality Calculated 293 mOsm/kg (285-295); Potassium 4.2 mmol/L (3.5-5.1); Sodium 139 mmol/L (136-145); Thyroid Stimulating Hormone 0.45 uIU/mL (0.27-4.20); Total Protein 7.8 g/dL (6.6-8.7)
[2025-02-23 13:00] VITALS: BP 140/84; PULSE 128; O2SAT 94
--- NOTE | 2025-02-23 13:56 | W.ED.BACK ---
HPI - Back Pain/Injury General: Chief Complaint: Back Pain/Injury Stated Complaint: jaw/back/rt leg locked Time Seen by Provider: 02/23/25 11:44 History of Present Illness: This patient is a 29 year old presenting with muscle spasm in his face, arm, leg and back - mostly on the left side but also on the right side in his back. He was here last night with vomiting and was given a medication to help with the nausea. According to the records here, he was given haldol 10 mg IV at 5 am. He says that the symptoms started at about 8 am and have been getting worse. He is pale, clammy and in obvious distress. His nausea is better. He was given a prescription for olanzapine to use for nausea, but hasn't filled it yet. Related Data Previous Rx's ?Medication ?Instructions ?Recorded ondansetron 4 mg disintegrating 4 mg PO Q6H PRN nausea and 02/21/25 tablet vomiting #14 tabs pantoprazole 40 mg tablet,delayed 40 mg PO DAILY 4 weeks #42 tabs 02/21/25 release (Protonix) sucralfate 1 gram tablet (Carafate) 1 g PO TID 2 weeks #42 tabs 02/21/25 lorazepam 2 mg tablet (Ativan) 2 mg buccal Q8H PRN nausea and 02/22/25 vomiting #10 tabs Allergies Allergy/AdvReac Type Severity Reaction Status Date / Time shellfish derived Allergy ADR-Drowsy Verified 02/22/25 04:38 [facility] PFSH: Medical History No pertinent family history Surgical History No pertinent past surgical history Family History Denies family history of Diabetes Dementia Hypertension Social History Smoking and tobacco/nicotine status: current some day tobacco/nicotine user Alcohol intake: current Alcohol intake frequency: few times a week Substance/Drug Use: current Substance/Drug use frequency: few times a week Physical Exam Const: OTHER: Pale, sweaty, anxious - head cocked to one side HENMT: HEAD & SCALP: normal to inspection FACE & SINUS: normal facial exam Eye: GENERAL EYE: appearance normal, both eyes and all related structures Neck/C-Spine: COMMON NORMALS: supple, no meningeal signs and no JVD Chest: COMMONS NORMALS: normal inspection of the chest Resp: COMMON NORMALS: normal respiratory effort, No use of accessory muscles and clear to auscultation bilaterally AUSCULTATION: clear to auscultation bilaterally Cardio: COMMON NORMALS: no JVD, regular rate, regular rhythm and No murmurs present (Cardio) RATE: regular rate RHYTHM: regular rhythm GI: COMMON NORMALS: Normal to inspection, nondistended, normoactive bowel sounds present, Soft to palpation and non-tender INSPECTION: Yes normal to inspection AUSCULTATION: Yes normoactive bowel sounds PALPATION: Yes Soft to palpation Back/Pelvis: COMMON NORMALS: thoracic and lumbar spine normal to inspection (muscle spasm present) Extremity: COMMON NORMALS: normal to inspection NARRATIVE EXTREMITY EXAM: muscle spasms present left arm and leg Neuro: COMMON NORMALS: moves all extremities, no focal motor deficits and no sensory deficits noted MENINGEAL SIGNS: Yes no meningeal signs Psych: COMMON NORMALS: mental status grossly normal, cooperative and normal affect OTHER: anxious Course Vital Signs: Vital signs: Vital Signs Temperature 98.1 F 02/23/25 11:46 Pulse Rate 97 02/23/25 15:16 Respiratory Rate 19 H 02/23/25 11:46 Blood Pressure 136/73 02/23/25 15:16 Pulse Oximetry 98 02/23/25 15:16 Oxygen Delivery Me thod Room Air 02/23/25 14:30 MDM - Back Pain/Injury Medical Decision Making EPS reaction to haldol - will treat with IVF, benadryl, ativan. Will check labs including CK. Improved wtih meds. Now able to relax. CK was high at 500 but normal renal function. Will monitor for recurrance and continue IVF but he should be okay. He should not take the olazapine tablets. He has been counseled regarding marjiuana use and hyperemesis. Labs 02/23/25 12:00 02/23/25 12:00 Laboratory Results WBC 17.41 10^3/uL (3.29-11.43) H 02/23/25 12:00 RBC 5.27 10^6/uL (3.85-5.65) 02/23/25 12:00 Hgb 15.30 g/dL (11.27-16.99) 02/23/25 12:00 Hct 46.4 % (37-53) 02/23/25 12:00 MCV 88.0 fl (82-101) 02/23/25 12:00 MCH 29.0 pg (27-33) 02/23/25 12:00 MCHC 33.0 g/dL (30-55) 02/23/25 12:00 RDW 12.9 % (12.1-15.1) 02/23/25 12:00 Plt Count 376 10^3/cmm (157-399) 02/23/25 12:00 MPV 9.4 fL (7.4-10.4) 02/23/25 12:00 Neut % (Auto) 83.1 % 02/23/25 12:00 Lymph % (Auto) 8.1 % 02/23/25 12:00 Mccreary % (Auto) 7.3 % 02/23/25 12:00 Eos % (Auto) 0.4 % 02/23/25 12:00 Baso % (Auto) 0.4 % 02/23/25 12:00 Neut # (Auto) 14.46 10^3/uL (1.8-7.7) H 02/23/25 12:00 Lymph # (Auto) 1.4 10^3/uL (0.8-4.8) 02/23/25 12:00 Mccreary # (Auto) 1.3 10^3/uL (0.2-0.9) H 02/23/25 12:00 Eos # (Auto) 0.1 10^3/uL (0.0-0.8) 02/23/25 12:00 Baso # (Auto) 0.1 10^3/uL (0.0-0.1) 02/23/25 12:00 Nucleated RBC % (auto) 0 % 02/23/25 12:00 Nucleated RBCs # 0.0 /100WBC 02/23/25 12:00 Sodium 139 mmol/L (136-145) 02/23/25 12:00 Potassium 4.2 mmol/L (3.5-5.1) 02/23/25 12:00 Chloride 99 mmol/L (98-107) 02/23/25 12:00 Carbon Dioxide 22 mmol/L (22-29) 02/23/25 12:00 Anion Gap 22.2 (5-19) H 02/23/25 12:00 BUN 16 mg/dL (6-20) 02/23/25 12:00 Creatinine 1.0 mg/dL (0.7-1.2) 02/23/25 12:00 GFR Calculation 89.0 mL/min (90-130) L 02/23/25 12:00 Glucose 161 mg/dL (65-115) H 02/23/25 12:00 Calculated Osmolality 293 mOsm/kg (285-295) 02/23/25 12:00 Lactic Acid 4.5 mmol/L (0.5-2.2) H* 02/23/25 12:00 Lactic Acid (Sepsis) 1.6 mmol/L (0.5-2.2) 02/23/25 14:31 Calcium 9.9 mg/dL (8.5-10.5) 02/23/25 12:00 Total Bilirubin 0.5 mg/dL (0.15-1.2) 02/23/25 12:00 AST 33 U/L (0-40) 02/23/25 12:00 ALT 40 U/L (0-41) 02/23/25 12:00 Alkaline Phosphatase 62 U/L (40-130) 02/23/25 12:00 Creatine Kinase 502 U/L (39-308) H* 02/23/25 12:00 Total Protein 7.8 g/dL (6.6-8.7) 02/23/25 12:00 Albumin 4.7 g/dL (3.5-5.2) 02/23/25 12:00 Globulin 3.1 g/dL (1.3-4.6) 02/23/25 12:00 TSH 0.45 uIU/mL (0.27-4.20) 02/23/25 12:00 No radiology studies performed this visit Discharge Plan Discharge Patient Disposition: Home Clinical Impression: Extrapyramidal reaction Condition: Stable Prescriptions: Discontinued olanzapine 10 mg tablet,disintegrating 10 mg PO Q8H PRN (Reason: nausea and vomiting) 5 Days Qty: 14 0RF No Action pantoprazole [Protonix] 40 mg tablet,delayed release (DR/EC) 40 mg PO DAILY 28 Days Qty: 42 0RF Rx Instructions: Take twice daily x 2 weeks. Then daily thereafter. sucralfate [Carafate] 1 gram tablet 1 g PO TID 14 Days Qty: 42 0RF ondansetron 4 mg tablet,disintegrating 4 mg PO Q6H PRN (Reason: nausea and vomiting) Qty: 14 0RF lorazepam [Ativan] 2 mg tablet 2 mg buccal Q8H PRN (Reason: nausea and vomiting) Qty: 10 0RF Discharge Orders: Discharge ED (Routine); Ordered 02/23/25 Ordered By: Fina Amyaa Patient Instructions: Opioid Safety, Pain Management, Patient Portal & Roxanna Instructions Activity Restrictions/Additional Instructions: DO NOT take the Olanzapine that was prescribed for you on the prior visit. It can cause the same reaction that you had to the IV medicine. Print Language: Qatari Coding Level of Care Code ED Warehouse Specialist for Jose Patel
--- NOTE | 2025-02-23 13:57 | PC.PHAR ---
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
[2025-02-23 13:58] LABS: Reflex Lactate Order REFLEX LACTIC ORDERD
[2025-02-23 14:30] VITALS: BP 133/81; PULSE 74; O2SAT 96
[2025-02-23 14:55] LABS: Lactic Acid level (Lactate) 1.6 mmol/L (0.5-2.2)
[2025-02-23 15:16] VITALS: BP 136/73; PULSE 97; O2SAT 98
== END 2025-02-23 15:17 | disposition home or self-care (01) ==
PROVIDERS: Emergency Provider Emergency Medicine
DX: G25.9 Extrapyramidal and movement disorder, unspecified (principal); Z72.0 Tobacco use
CPT/HCPCS: 36415; 80053; 82550; 83605; 84443; 85025; 96361; 96374; 96375; 99284; J1200; J2060; J7030

== ENCOUNTER → 2025-07-27 10:24 | Outpatient (BNVA) | payer SELFPAY | PROVIDERS: Visit Provider Emergency Medicine | DX: Z03.89 Encounter for observation for other suspected diseases and conditions ruled out (principal); S69.92XA Unspecified injury of left wrist, hand and finger(s), initial encounter; X58.XXXA Exposure to other specified factors, initial encounter | CPT/HCPCS: 73130 ==